=== PATIENT | male | born 1940 | race African-American/Black ===

== ENCOUNTER 2016-12-31 13:37 | Emergency (ER) | payer MEDICARE, OTHER ==
[~2016-12-31] VITALS: Ht 165.1 cm; Wt 65.3 kg
[~2016-12-31 13:37] MED LIST: AMBIEN10 MG PO; ASPIR 8181 MG PO; ATENOLOL50 MG ORAL; AZOPT10 ML BOTH EYES; BYSTOLIC10 MG PO; CENTRUM MULTIV1 EACH PO; COMBIGAN EYE DRO5 ML BOTH EYES; FLOMAX0.4 MG PO; GABAPENTIN300 MG PO; HUMALOG MI100 UNIT/5 SQ; LOVAZA1 GM PO; NITROGLYCERIN0.4 MG SL; NOVOLOG100 UNIT/3 SUBQ; TRIBENZOR 40-11 EAC1 ORAL; TRIBENZOR 40-11 EAC1 PO; UNKNOWN BP MED PO; VITAMIN D1000 UNI1 PO
[2016-12-31 13:40] VITALS: BP 155/70
--- NOTE | 2016-12-31 14:22 | Emergency Room Report ---
History of Present Illness General Chief Complaint: Eye Problems Source: Patient, EMS Present Illness HPI Patient is a 76-year-old male who presented after increased difficulty with vision from his left eye. Patient reports having increased blurring of his vision to his left eye primarily. Patient had the onset of symptoms approximately one month ago. Patient noted some worsening of his vision today. Patient said he previously had cataract surgery. He had been using store- bought corrective lenses. He denies recent fever or trauma. Allergies: Coded Allergies: ATORVASTATIN CALCIUM (Unverified Adverse Reaction, Unknown, NAUSEA, 02/22/13 ) NAUSEA Patient History Past Medical History: see triage record Reviewed Nursing Documentation: PMH: Agreed, PSxH: Agreed Nursing Documentation-PMH Past Medical History: No History, Except For Hx Cardiac Problems: No Hx Hypertension: Yes Hx Diabetes: Yes Hx Cancer: No Hx Gastrointestinal Problems: No Hx Neurological Problems: Yes Hx Dizziness: Yes Hx Syncope: Yes Hx Headaches: Yes Hx Weakness: Yes Hx Fatigue: Yes Review of Systems All Other Systems: negative except mentioned in HPI Physical Exam Vital Signs Date Time Temp Pulse Resp B/P Pulse Ox O2 Delivery O2 Flow Rate FiO2 12/31/16 13:24 97.9 100 18 166/68 98 Room Air Sp02 EP Interpretation: reviewed, normal General Appearance: normal inspection, well appearing, no apparent distress, alert, GCS 15 Head: atraumatic Eyes: bilateral eye other - post surgical pupils, left pupil non reactive ENT: normal ENT inspection, hearing grossly normal, normal voice Neck: normal inspection, full range of motion, supple, no bony tend Respiratory: normal inspection, lungs clear, normal breath sounds, no respiratory distress, no retraction, no wheezing Cardiovascular #1: regular rate, rhythm, no edema Gastrointestinal: normal inspection, normal bowel sounds, non tender, soft, no guarding, no hernia Genitourinary: no CVA tenderness Musculoskeletal: normal inspection, back normal, normal range of motion Neurologic: normal inspection, alert, responsive, speech normal Psychiatric: normal inspection, judgement/insight normal, mood/affect normal Skin: normal inspection, normal color, no rash Medical Decision Making Diagnostic Impression: Primary Impression: Vitreous hemorrhage of left eye Additional Impression: Glaucoma ER Course The patient presented for decreased vision. Differential diagnoses included was not limited to central retinal artery occlusion, dislocation lens, glaucoma , iritis, central vein occlusion, vitreous hemorrhage among others. Because of complexity of patient's case and concern for acute vision loss ophthalmology consult was obtained. Dr. Pandey saw patient emergency department. The patient was noted to have glaucoma which the patient has prior history. The patient was given followup instructions. Patient was advised to return if he began having other concerns or symptoms. Last Vital Signs Date Time Temp Pulse Resp B/P Pulse Ox O2 Delivery O2 Flow Rate FiO2 12/31/16 13:24 97.9 100 18 166/68 98 Room Air Status: improved Disposition: HOME, SELF-CARE Condition: Stable Emeterio Smith Dec 31, 2016 14:22
[2016-12-31] MEDS ORDERED: Tropicamide 1% Opth Soln LEFT EYE ONE (16:00)
[2016-12-31 19:18] VITALS: BP 153/73
--- NOTE | 2017-01-01 05:20 | Consultation ---
DATE OF CONSULTATION: 12/31/2016 CONSULTING PHYSICIAN: Kingston Julien M.D. REQUESTING PHYSICIAN: Emeterio Smith M.D. REASON FOR CONSULT: Vision loss. HISTORY OF PRESENT ILLNESS: The patient is a 76-year-old male with a past medical history including diabetes and glaucoma, complaining of decrease in vision over the last month, acutely worsening over the last several days. He notes worse vision in his left eye than the right eye. He reports a past ocular history of bilateral cataract surgery, and glaucoma surgery in the left eye. He was previously on eye drops to treat his glaucoma, however, he states that he stopped them approximately one month ago because they burned. He denies any recent trauma or eye pain. Past Medical History: No History, Except For Hx Cardiac Problems: No Hx Hypertension: Yes Hx Diabetes: Yes Hx Cancer: No Hx Gastrointestinal Problems: No Hx Neurological Problems: Yes Hx Dizziness: Yes Hx Syncope: Yes Hx Headaches: Yes Hx Weakness: Yes Hx Fatigue: Yes REVIEW OF SYSTEMS: Negative other than reported in the HPI. Allergies: Coded Allergies: ATORVASTATIN CALCIUM (Unverified Adverse Reaction, Unknown, NAUSEA, 02/22/13 ) NAUSEA Vital Signs Date Time Temp Pulse Resp B/P Pulse Ox O2 Delivery O2 Flow Rate FiO2 12/31/16 13:24 97.9 100 18 166/68 98 Room Air OPHTHALMIC EXAMINATION: Visual acuity OD 20/200 OS, light perception. Intraocular pressure by Adiel-Pen 25 mmHg OU. Extraocular motility equal bilaterally. Confrontation visual field is constricted OD, unable OS. Pupils are sluggishly reactive OU. Slit lamp examination Conjunctiva: quiet OU Cornea: clear OU Anterior chamber: deep/quiet OU, glaucoma drainage device superiorly OS Iris: post surgical OU Lens: PCIOL OU Dilated fundus exam OD: clear vitreous, advanced cupping with ONH pallor, flat macula, normal vessels and peripheral retinal scarring. OS: vitreous hemorrhage, advanced cupping with ONH pallor, flat macula, peripheral retinal scarring, view obscured by vit heme. Assessment/Plan 1. Glaucoma OU - Restart glaucoma medication today, patient says he has drops at home but has not been using them for at least 1 month. - f/u with account review specialist MAY, patient says he has a account review specialist, must call to schedule appt tomorrow 2. Proliferative diabetic retinopathy, OS - tight BP/BS control, goal HgbA1c <7.0 - elevate head of bed to promote inferior layering of vitreous hemorrhage - f/u with recruiting team lead this week for further evaluation and management 3. Pseudophakia, OU Kingston Julien M.D. DR: PHYLLIS JOB#: [id number] CC: ALLI
== END 2016-12-31 20:39 | disposition home or self-care (01) ==
LOC: EDBD 13:37 → EMR 14:51
DX: H43.12 Vitreous hemorrhage, left eye (principal); H40.9 Unspecified glaucoma; I10 Essential (primary) hypertension; E11.9 Type 2 diabetes mellitus without complications
CPT/HCPCS: 99282

== ENCOUNTER 2017-04-09 14:22 | Inpatient (IN) | payer MEDICARE, OTHER ==
[~2017-04-09] VITALS: Ht 167.6 cm; Wt 72.6 kg
[2017-04-09] VITALS (7 sets, daily range): BP systolic 137–184; BP diastolic 53–103
[2017-04-09] MEDS ORDERED: Lidocaine 1% 10mg/ml/Epi 0.005mg/ml 30ml vial INJ ONE (14:30)
[2017-04-09] MEDS ORDERED: Bacitracin Oint UD TOPIC ONE (14:30)
[2017-04-09] MEDS ORDERED: TdaP Vaccine 0.5ml Syr IM ONE (14:30)
--- NOTE | 2017-04-09 14:59 | Diagnostic Imaging Report ---
Indications: Fall, head trauma, pain Technique: Continuous helical CT imaging of the brain was performed with nonionic exposure control on a Siemens sensation [address] scanner. Axial and coronal images were reconstructed at 5 mm slice thickness and interval. CTDI volume(s): 70 mGy Total DLP: 1449 mGy-cm Findings: Comparison: None Confluent low attenuation is present in the bilateral periventricular deep cerebral white matter. Wedge-shaped, peripherally based low attenuation/parenchymal loss posterior lateral aspect right parietal lobe. Small circumscribed foci of low attenuation/parenchymal loss bilateral cerebellar hemispheres. Ventricles, cisterns, and sulci are diffusely prominent. No evidence of mass or hemorrhage, mass effect, midline shift, hydrocephalus, or increased intracranial pressure. Bone window images are unremarkable. Visualized paranasal sinuses and mastoid air cells are clear. IMPRESSION: No evidence of acute injury or other acute intracranial pathology Bilateral cerebral periventricular and deepwhite matter low attenuation, nonspecific, likely chronic microvascular ischemic in nature. 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 Atrophy The CT scanner at [facility] is accredited by the [employer] and the scans are performed using protocols designed to limit radiation exposure to as low as reasonably achievable to attain images of sufficient resolution adequate for diagnostic evaluation.
[2017-04-09 15:35] LABS: INR 1.1 (0.9-1.1); PROTHROMBIN TIME 11.1 SEC (9.30-11.50)
[2017-04-09 15:40] LABS: MEAN CORPUSCULAR HEMOGLOBIN 31.9 PG (27.0-31.0); MEAN CORPUSCULAR HGB CONC 33.4 G/DL (32.0-36.0); MEAN CORPUSCULAR VOLUME 95 FL (80-99); MEAN PLATELET VOLUME 6.8 FL (6.5-10.1); PLATELET COUNT 176 K/UL (150-450); RED BLOOD COUNT 4.25 M/UL (4.70-6.10); RED CELL DISTRIBUTION WIDTH 12.3 % (11.6-14.8); WHITE BLOOD COUNT 6.3 K/UL (4.8-10.8)
[2017-04-09 15:41] LABS: TROPONIN I < 0.30 ng/mL (<=0.30)
[2017-04-09 15:47] LABS: ALANINE AMINOTRANSFERASE 11 U/L (3-41); ALBUMIN/GLOBULIN RATIO 1.7 (1.0-2.7); ANION GAP 14 (5-15); ASPARTATE AMINO TRANSFERASE 14 U/L (5-40); CALCIUM 9.5 mg/dL (8.6-10.2); CARBON DIOXIDE 27 mEQ/L (20-30); CHLORIDE 97 mEQ/L (98-107); CREATININE 1.5 mg/dL (0.7-1.2); HEMOLYSIS 3; POTASSIUM 5.5 mEQ/L (3.4-4.9); SODIUM 138 mEQ/L (135-145); TOTAL PROTEIN 6.9 g/dL (6.6-8.7)
--- NOTE | 2017-04-09 15:55 | Emergency Room Report ---
History of Present Illness General Chief Complaint: Head, Face, Neck Trauma Source: Patient Present Illness HPI Patient is brought in after head injury. According to EMS he was alert had a ground-level fall. The patient denies falling and does not remember hitting his head. He was waiting for the bus. He has pain in the back of his head that sharp about a 4/10 constant. There was some bleeding at the scene. Paramedics felt that this was related to a new walker that he has. The patient does have an in-home caregiver. He was on his way by himself to get something to eat. He states that for the last 2 days he's felt weak when he is standing up. The patient has hypertension, diabetes. Has glaucoma and retinopathy. On insulin and uses gabapentin. Eating well. Sugars not uncontrolled, on insulin. No fevers, NVD, dysuria, extremity or neck pain. He denies any renal problems. 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 Reviewed Nursing Documentation: PMH: Agreed, PSxH: Agreed Nursing Documentation-PMH Hx Cardiac Problems: No Hx Hypertension: Yes Hx Pacemaker: No Hx COPD: No Hx Diabetes: No Hx Cancer: No Hx Gastrointestinal Problems: No - glaucoma Hx Dialysis: No History Of Psychiatric Problem: No Hx Neurological Problems: No Hx Cerebrovascular Accident: No Hx Seizures: No Hx Dizziness: Yes Hx Syncope: Yes Hx Headaches: Yes Hx Weakness: Yes Hx Fatigue: Yes Review of Systems All Other Systems: negative except mentioned in HPI Physical Exam Vital Signs Date Time Temp Pulse Resp B/P Pulse Ox O2 Delivery O2 Flow Rate FiO2 04/09/17 14:21 97.9 78 16 140/90 99 Room Air Sp02 EP Interpretation: reviewed, normal General Appearance: no apparent distress, alert, GCS 15, non-toxic, other - not orthostatic, Chronically Ill Head: normocephalic Eyes: bilateral eye normal inspection ENT: moist mucus membranes Neck: supple Respiratory: lungs clear, normal breath sounds Cardiovascular #1: regular rate, rhythm Cardiovascular #2: 2+ radial (R) Gastrointestinal: normal inspection, normal bowel sounds, non tender, no mass, non-distended, scaphoid Musculoskeletal: back normal, normal range of motion, no calf tenderness, other - atrophy Neurologic: alert, oriented x3 - not remember fall, motor strength/tone normal , DTRs symmetric, sensory intact - reported decrease extrem, other - slight unsteady posture Psychiatric: mood/affect normal Reflexes: 2+ knee (R), 2+ knee (L) Skin: warm/dry, laceration - occiput = 5 cm Procedures Laceration/Wound Repair Laceration/Wound Repair : Consent: Verbal Wound Location: head Wound's Depth, Shape: into muscle, linear, contused tissue Wound Length (cm): 5 Wound Explored: clean Betadine Prep?: Yes Anesthesia: Lidocaine w/ Epi Wound Debrided: minimal Wound Repaired With: mary Patient Tolerated: Well Complications: None Progress Wound irrigated by pharmacy picking technician after lido. Medical Decision Making Diagnostic Impression: Primary Impression: Syncope Qualified Codes: R55 - Syncope and collapse Additional Impressions: Head injury Qualified Codes: S09.90XA - Unspecified injury of head, initial encounter Renal insufficiency Hyperkalemia Diabetes Post strokes Scalp laceration Qualified Codes: S01.01XA - Laceration without foreign body of scalp, initial encounter ER Course Patient post fall (he doesn't remember) with head injury. DDx: bleed, contusion , syncope, AMI, arrhythmia, orthostatic syncope, dehydration amongst others. Emergent evaluation with CT, EKG, CXR, labs. Will need tetanus and wound care. Not orthostatic. EKG (no peaked T waves), CT (prior strokes), CXR unremarkable. Labs with hyperkalemia and renal insufficiency. Glucose elevated. Scalp lac repaired. Hyperkalemia treated. Gentle hydration. Improved with treatment. Admit tele Dr. Rosenbaum. Laboratory Tests Test 04/09/17 15:00 White Blood Count 6.3 K/UL (4.8-10.8) Red Blood Count 4.25 M/UL (4.70-6.10) L Hemoglobin 13.5 G/DL (14.2-18.0) L Hematocrit 40.5 % (42.0-52.0) L Mean Corpuscular Volume 95 FL (80-99) Mean Corpuscular Hemoglobin 31.9 PG (27.0-31.0) H Mean Corpuscular Hemoglobin Concent 33.4 G/DL (32.0-36.0) Red Cell Distribution Width 12.3 % (11.6-14.8) Platelet Count 176 K/UL (150-450) Mean Platelet Volume 6.8 FL (6.5-10.1) Neutrophils (%) (Auto) % (45.0-75.0) Lymphocytes (%) (Auto) % (20.0-45.0) Monocytes (%) (Auto) % (1.0-10.0) Eosinophils (%) (Auto) % (0.0-3.0) Basophils (%) (Auto) % (0.0-2.0) Differential Total Cells Counted 100 Neutrophils % (Manual) 85 % (45-75) H Lymphocytes % (Manual) 9 % (20-45) L Monocytes % (Manual) 3 % (1-10) Eosinophils % (Manual) 0 % (0-3) Basophils % (Manual) 0 % (0-2) Band Neutrophils 3 % (0-8) Platelet Estimate Adequate Platelet Morphology Normal Anisocytosis 1+ Prothrombin Time 11.1 SEC (9.30-11.50) Prothrombin Time INR 1.1 (0.9-1.1) PTT 24 SEC (23-33) Sodium Level 138 mEQ/L (135-145) Potassium Level 5.5 mEQ/L (3.4-4.9) H Chloride Level 97 mEQ/L (98-107) L Carbon Dioxide Level 27 mEQ/L (20-30) Anion Gap 14 (5-15) Blood Urea Nitrogen 21 mg/dL (7-23) Creatinine 1.5 mg/dL (0.7-1.2) H Estimate Glomerular Filtration Rate mL/min (>60) Glucose Level 361 mg/dL (74-106) H Calcium Level 9.5 mg/dL (8.6-10.2) Total Bilirubin 0.7 mg/dL (0.0-1.2) Aspartate Amino Transferase (AST) 14 U/L (5-40) Alanine Aminotransferase (ALT) 11 U/L (3-41) Alkaline Phosphatase 105 U/L (40-129) Total Creatine Kinase 31 U/L (38-174) L Troponin I < 0.30 ng/mL (<=0.30) Pro-B-Type Natriuretic Peptide 706 pg/mL (0-125) H Total Protein 6.9 g/dL (6.6-8.7) Albumin 4.4 g/dL (3.5-5.2) Globulin 2.5 g/dL Albumin/Globulin Ratio 1.7 (1.0-2.7) EKG Diagnostic Results Rate: normal Rhythm: NSR ST Segments: no acute changes Rhythm Strip Diag. Results EP Interpretation: yes Rhythm: NSR, no PVC's, no ectopy Chest X-Ray Diagnostic Results EP Interpretation: Yes Findings: no consolidation, no effusion, no pneumothorax, no acute cardiopulmonary disease Number of Views: 1 CT/MRI/US Diagnostic Results CT/MRI/US Diagnostic Results : Imaging Test Ordered: head Impression No evidence of acute injury or other acute intracranial pathology. Bilateral cerebral preventricular and deep white matter low attenuation which is nonspecific likely chronic microvascular ischemic in nature. 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 Atrophy. Last Vital Signs Date Time Temp Pulse Resp B/P Pulse Ox O2 Delivery O2 Flow Rate FiO2 04/09/17 22:59 184/103 04/09/17 22:32 97.5 71 20 96 Room Air Status: improved Disposition: ADMITTED INPATIENT Condition: Serious Carlton Renner M.D. April 09, 2017 15:55
[2017-04-09] MEDS ORDERED: Calcium Gluconate 1gm/10ml vial IVP ONE (16:00)
[2017-04-09] MEDS ORDERED: Sodium Polystyrene Sulfonate 15gm Powder ORAL ONE (16:00)
--- NOTE | 2017-04-09 16:35 | Diagnostic Imaging Report ---
Indication: Shortness of breath Technique: Single portable AP view of the chest. Findings: Comparison: 12/14/12 The bones and extra pulmonary soft tissues, cardiomediastinal silhouette, pulmonary vasculature and parenchyma, and pleural surfaces remain unremarkable. IMPRESSION: Negative portable AP chest, unchanged.
[2017-04-09 17:00] LABS: ANISOCYTOSIS 1+; BAND NEUTROPHILS % (MANUAL) 3 % (0-8); BASOPHILS % (MANUAL) 0 % (0-2); EOSINOPHILS % (MANUAL) 0 % (0-3); LYMPHOCYTES % (MANUAL) 9 % (20-45); NEUTROPHILS % (MANUAL) 85 % (45-75); PLATELET ESTIMATE ADEQUATE; PLATELET MORPHOLOGY NORMAL; TOTAL CELLS COUNTED 100
[2017-04-09 19:43] LABS: APPEARANCE,URINE CLEAR; KETONES,URINE 1+ (NEGATIVE); LEUKOCYTE ESTERASE ,URINE NEGATIVE (NEGATIVE); NITRITE,URINE NEGATIVE (NEGATIVE); PH,URINE 6 (4.5-8.0); PROTEIN,URINE 1+ (NEGATIVE); UROBILINOGEN,URINE NORMAL MG/DL (0.0-1.0)
[2017-04-09] MEDS ORDERED: METFORMIN HCL500 M4 ORAL (19:49)
[2017-04-09 19:58] LABS: BACTERIA,URINE FEW /HPF; RBC,URINE 0-2 /HPF (0 - 0); WBC,URINE 0-2 /HPF (0 - 0)
[2017-04-09] MEDS ORDERED: DuoNeb 0.5-3(2.5)mg/3ml neb HHN PRN (21:45)
[2017-04-09] MEDS ORDERED: Morphine Sulfate 2mg/ml Inj IVP PRN (21:45)
[2017-04-09] MEDS ORDERED: Mylanta II UD 30ml ORAL PRN (21:45)
[2017-04-09] MEDS ORDERED: Miralax 17gm pkt ORAL PRN (21:45)
[2017-04-09] MEDS ORDERED: Nitroglycerin Subl 0.4mg tab (Bottle Of 25) SL PRN (21:45)
[2017-04-09] MEDS ORDERED: LORazepam Inj 2mg/ml 1ml IV PRN (21:45)
[2017-04-09] MEDS ORDERED: Enalaprilat 2.5mg/2ml Inj IV PRN (21:45)
[2017-04-10 04:25] VITALS: BP 113/54
[2017-04-10] MEDS: NovoLOG Insulin Flexpen SUBQ SCH ×4 (06:51→20:42)
--- NOTE | 2017-04-10 07:23 | Cardiology Progress Note ---
Assessment/Plan Assessment/Plan fall syncope left carotid bruit exertional dyspnea and ? cp htn dm polypharmacy glaucoma needing surgery ? lv dysfunction serial enzyme ekg carotid duplex \orthostatic vitals dc atenolol whiel on bystolic adjust med telel observation gerardo need ischemia eval [id number] Objective Last 24 Hour Vital Signs Date Time Temp Pulse Resp B/P Pulse Ox O2 Delivery O2 Flow Rate FiO2 04/10/17 04:25 97.7 69 20 113/54 100 Room Air 04/10/17 04:15 69 74 70 04/10/17 04:00 73 04/10/17 00:00 82 04/09/17 22:59 184/103 04/09/17 22:32 97.5 71 20 184/103 96 Room Air 04/09/17 22:00 98.2 65 12 148/67 100 Room Air 04/09/17 21:13 98.2 65 12 148/67 100 Room Air 04/09/17 18:26 98.2 68 18 162/80 100 Room Air 04/09/17 17:30 98.3 106 14 152/97 98 Room Air 04/09/17 15:36 88 20 Room Air 04/09/17 15:26 98.2 96 18 147/67 100 Room Air 04/09/17 15:24 98.2 90 18 181/71 100 Room Air 04/09/17 15:22 98.2 85 18 137/53 100 Room Air 04/09/17 14:21 97.9 78 16 140/90 99 Room Air Intake and Output 04/09/17 04/10/17 19:00 07:00 Intake Total 0 ml Balance 0 ml Intake Oral 0 ml # Voids 1 Laboratory Tests Test 04/09/17 15:00 04/09/17 19:28 04/10/17 06:00 White Blood Count 6.3 K/UL (4.8-10.8) Pending Red Blood Count 4.25 M/UL (4.70-6.10) L Pending Hemoglobin 13.5 G/DL (14.2-18.0) L Pending Hematocrit 40.5 % (42.0-52.0) L Pending Mean Corpuscular Volume 95 FL (80-99) Pending Mean Corpuscular Hemoglobin 31.9 PG (27.0-31.0) H Pending Mean Corpuscular Hemoglobin Concent 33.4 G/DL (32.0-36.0) Pending Red Cell Distribution Width 12.3 % (11.6-14.8) Pending Platelet Count 176 K/UL (150-450) Pending Mean Platelet Volume 6.8 FL (6.5-10.1) Pending Neutrophils (%) (Auto) % (45.0-75.0) Pending Lymphocytes (%) (Auto) % (20.0-45.0) Pending Monocytes (%) (Auto) % (1.0-10.0) Pending Eosinophils (%) (Auto) % (0.0-3.0) Pending Basophils (%) (Auto) % (0.0-2.0) Pending Differential Total Cells Counted 100 Neutrophils % (Manual) 85 % (45-75) H Lymphocytes % (Manual) 9 % (20-45) L Monocytes % (Manual) 3 % (1-10) Eosinophils % (Manual) 0 % (0-3) Basophils % (Manual) 0 % (0-2) Band Neutrophils 3 % (0-8) Platelet Estimate Adequate Platelet Morphology Normal Anisocytosis 1+ Prothrombin Time 11.1 SEC (9.30-11.50) Pending Prothromb Time International Ratio 1.1 (0.9-1.1) Pending Activated Partial Thromboplast Time 24 SEC (23-33) Pending Sodium Level 138 mEQ/L (135-145) Pending Potassium Level 5.5 mEQ/L (3.4-4.9) H Pending Chloride Level 97 mEQ/L (98-107) L Pending Carbon Dioxide Level 27 mEQ/L (20-30) Pending Anion Gap 14 (5-15) Blood Urea Nitrogen 21 mg/dL (7-23) Pending Creatinine 1.5 mg/dL (0.7-1.2) H Pending Estimat Glomerular Filtration Rate mL/min (>60) Pending Glucose Level 361 mg/dL (74-106) H Pending Calcium Level 9.5 mg/dL (8.6-10.2) Pending Total Bilirubin 0.7 mg/dL (0.0-1.2) Pending Aspartate Amino Transf (AST/SGOT) 14 U/L (5-40) Pending Alanine Aminotransferase (ALT/SGPT) 11 U/L (3-41) Pending Alkaline Phosphatase 105 U/L (40-129) Pending Total Creatine Kinase 31 U/L (38-174) L Troponin I < 0.30 ng/mL (<=0.30) Pro-B-Type Natriuretic Peptide 706 pg/mL (0-125) H Total Protein 6.9 g/dL (6.6-8.7) Pending Albumin 4.4 g/dL (3.5-5.2) Pending Globulin 2.5 g/dL Pending Albumin/Globulin Ratio 1.7 (1.0-2.7) Urine Color Pale yellow Urine Appearance Clear Urine pH 6 (4.5-8.0) Urine Specific [place] 1.010 (1.005-1.035) Urine Protein 1+ (NEGATIVE) H Urine Glucose (UA) 4+ (NEGATIVE) H Urine Ketones 1+ (NEGATIVE) H Urine Occult Blood Negative (NEGATIVE) Urine Nitrite Negative (NEGATIVE) Urine Bilirubin Negative (NEGATIVE) Urine Urobilinogen Normal MG/DL (0.0-1.0) Urine Leukocyte Esterase Negative (NEGATIVE) Urine RBC 0-2 /HPF (0 - 0) H Urine WBC 0-2 /HPF (0 - 0) Urine Squamous Epithelial Cells None /LPF (NONE/OCC) Urine Bacteria Few /HPF (NONE) Triglycerides Level Pending Cholesterol Level Pending LDL Cholesterol Pending HDL Cholesterol Pending Cholesterol/HDL Ratio Pending Thyroid Stimulating Hormone (TSH) Pending DOMINGO YUSUF April 10, 2017 07:23
[2017-04-10 07:25] LABS: INR 1.1 (0.9-1.1); PROTHROMBIN TIME 11.4 SEC (9.30-11.50)
[2017-04-10 07:26] LABS: BASOPHILS % (AUTO) 0.8 % (0.0-2.0); EOSINOPHILS % (AUTO) 1.4 % (0.0-3.0); LYMPHOCYTES % (AUTO) 23.1 % (20.0-45.0); MEAN CORPUSCULAR HEMOGLOBIN 32.4 PG (27.0-31.0); MEAN CORPUSCULAR HGB CONC 34.1 G/DL (32.0-36.0); MEAN CORPUSCULAR VOLUME 95 FL (80-99); MEAN PLATELET VOLUME 7.7 FL (6.5-10.1); MONOCYTES % (AUTO) 6.9 % (1.0-10.0); NEUTROPHILS % (AUTO) 67.8 % (45.0-75.0); PLATELET COUNT 157 K/UL (150-450); RED BLOOD COUNT 3.72 M/UL (4.70-6.10); RED CELL DISTRIBUTION WIDTH 12.5 % (11.6-14.8); WHITE BLOOD COUNT 6.1 K/UL (4.8-10.8)
[2017-04-10 07:39] LABS: ALANINE AMINOTRANSFERASE 8 U/L (3-41); ALBUMIN/GLOBULIN RATIO 1.4 (1.0-2.7); ANION GAP 14 (5-15); ASPARTATE AMINO TRANSFERASE 10 U/L (5-40); CALCIUM 9.1 mg/dL (8.6-10.2); CARBON DIOXIDE 28 mEQ/L (20-30); CHLORIDE 99 mEQ/L (98-107); CHOLESTEROL 169 mg/dL (< 200); CHOLESTEROL/HDL RATIO 3.8 (3.3-4.4); CREATININE 1.2 mg/dL (0.7-1.2); HEMOLYSIS 11; LDL CHOLESTEROL (CALC.) 99 mg/dL (60-99); POTASSIUM 4.2 mEQ/L (3.4-4.9); SODIUM 141 mEQ/L (135-145); TOTAL PROTEIN 6.3 g/dL (6.6-8.7)
[2017-04-10 08:25] VITALS: BP 133/64
[2017-04-10] MEDS: Aspirin EC 81mg tab ORAL SCH (08:56)
[2017-04-10] MEDS: Tamsulosin 0.4mg cap ORAL SCH (08:56)
[2017-04-10] MEDS: Heparin 5000 units/ml inj SUBQ SCH ×2 (09:00→20:32)
[2017-04-10 11:42] VITALS: BP 153/74
--- NOTE | 2017-04-10 13:40 | Consultation ---
History of Present Illness General Date patient seen: April 10, 2017 Chief Complaint: Head, Face, Neck Trauma Referring physician: Dr. Guerra Reason for Consultation: inpatient management Present Illness HPI 76 year old male with hx of hypertension, diabetes, glaucoma and retinopathy, on insulin .is brought in after head injury. According to EMS he was alert had a ground-level fall. While he was waiting for the bus. He has pain in the back of his head . He stated that he in the last 2 days felt weak when he is standing up. Pt is admitted to telemetry for furhter work up. Allergies: Coded Allergies: ATORVASTATIN CALCIUM (Unverified Adverse Reaction, Unknown, NAUSEA, 02/22/13 ) NAUSEA Medication History Scheduled Aspirin* (Aspir 81*), 81 MG PO DAILY, (Reported) Atenolol* (Tenormin*), 50 MG ORAL DAILY, (Reported) Brimonidine Tartrate/Timolol (Combigan Eye Drops), 5 BOTH EYES BID, (Reported) Brinzolamide (Azopt), BOTH EYES TID, (Reported) Cholecalciferol (Vitamin D3)* (Vitamin D*), 5,000 UNITS PO DAILY, (Reported) Folic Acid/Mv,Fe,Other Min (Centrum Multivitamin Tab Chew), 1 EACH PO DAILY, ( Reported) Gabapentin* (Gabapentin*), 300 MG PO TID, (Reported) Insulin Aspart* (Novolog*), 0 SUBQ .SLIDING SCALE, (Reported) Metformin Hcl (Metformin Hcl Er), Unknown Dose ORAL DAILY, (Reported) Nebivolol Hcl (Bystolic*), 20 MG PO DAILY, (Reported) Olmesartan Med/Amlodipine/Hctz 40-10-25MG (Tribenzor 40-10-25 Mg Tablet), 1 EACH PO DAILY, (Reported) Olmesartan Med/Amlodipine/Hctz 40-10-25MG (Tribenzor 40-10-25 Mg Tablet), 1 TAB ORAL DAILY, (Reported) [place]-3 Acid Ethyl Esters (Lovaza), 1 GM PO BID, (Reported) [place]-3 Acid Ethyl Esters (Lovaza), 1 GM PO BID, (Reported) Tamsulosin HCl (Flomax), 0.4 MG PO DAILY, (Reported) Zolpidem Tartrate* (Ambien*), 10 MG PO HS, (Reported) Scheduled PRN Nitroglycerin (Nitroglycerin), 0.4 MG SL, (Reported) Miscellaneous Medications Insulin Npl/Insulin Lispro (Humalog Mix 75-25 Pen), 0 SQ, (Reported) Patient History Healthcare decision maker N Resuscitation status Full Code Advanced Directive on File Past Medical/Surgical History Past Medical/Surgical History: (1) HTN (hypertension) (2) Glaucoma (3) Diabetes Review of Systems All Other Systems: negative except mentioned in HPI Physical Exam General Appearance: WD/WN Lines, tubes and drains: peripheral HEENT: normocephalic, atraumatic Neck: non-tender, normal alignment Respiratory/Chest: chest wall non-tender, lungs clear Cardiovascular/Chest: normal peripheral pulses, normal rate Abdomen: normal bowel sounds, non tender Genitourinary/Rectal: normal genital exam Extremities: normal range of motion Skin Exam: normal pigmentation 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: 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 II-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 grossly normal Last 24 Hour Vital Signs Date Time Temp Pulse Resp B/P Pulse Ox O2 Delivery O2 Flow Rate FiO2 04/10/17 11:42 97.0 61 20 153/74 100 Room Air 04/10/17 08:56 79 128/78 04/10/17 08:35 79 04/10/17 08:30 85 04/10/17 08:25 71 04/10/17 08:25 97.0 71 20 133/64 95 Room Air 04/10/17 08:00 77 04/10/17 07:30 78 20 Room Air 21 04/10/17 04:25 97.7 69 20 113/54 100 Room Air 04/10/17 04:15 69 74 70 04/10/17 04:00 73 04/10/17 00:00 82 04/09/17 22:59 184/103 04/09/17 22:32 97.5 71 20 184/103 96 Room Air 04/09/17 22:00 98.2 65 12 148/67 100 Room Air 04/09/17 21:13 98.2 65 12 148/67 100 Room Air 04/09/17 18:26 98.2 68 18 162/80 100 Room Air 04/09/17 17:30 98.3 106 14 152/97 98 Room Air 04/09/17 15:36 88 20 Room Air 04/09/17 15:26 98.2 96 18 147/67 100 Room Air 04/09/17 15:24 98.2 90 18 181/71 100 Room Air 04/09/17 15:22 98.2 85 18 137/53 100 Room Air 04/09/17 14:21 97.9 78 16 140/90 99 Room Air Intake and Output 04/09/17 04/10/17 19:00 07:00 Intake Total 0 ml Balance 0 ml Intake Oral 0 ml # Voids 1 Laboratory Tests Test 04/09/17 15:00 04/09/17 19:28 04/10/17 06:00 White Blood Count 6.3 K/UL (4.8-10.8) 6.1 K/UL (4.8-10.8) Red Blood Count 4.25 M/UL (4.70-6.10) L 3.72 M/UL (4.70-6.10) L Hemoglobin 13.5 G/DL (14.2-18.0) L 12.0 G/DL (14.2-18.0) L Hematocrit 40.5 % (42.0-52.0) L 35.3 % (42.0-52.0) L Mean Corpuscular Volume 95 FL (80-99) 95 FL (80-99) Mean Corpuscular Hemoglobin 31.9 PG (27.0-31.0) H 32.4 PG (27.0-31.0) H Mean Corpuscular Hemoglobin Concent 33.4 G/DL (32.0-36.0) 34.1 G/DL (32.0-36.0) Red Cell Distribution Width 12.3 % (11.6-14.8) 12.5 % (11.6-14.8) Platelet Count 176 K/UL (150-450) 157 K/UL (150-450) Mean Platelet Volume 6.8 FL (6.5-10.1) 7.7 FL (6.5-10.1) Neutrophils (%) (Auto) % (45.0-75.0) 67.8 % (45.0-75.0) Lymphocytes (%) (Auto) % (20.0-45.0) 23.1 % (20.0-45.0) Monocytes (%) (Auto) % (1.0-10.0) 6.9 % (1.0-10.0) Eosinophils (%) (Auto) % (0.0-3.0) 1.4 % (0.0-3.0) Basophils (%) (Auto) % (0.0-2.0) 0.8 % (0.0-2.0) Differential Total Cells Counted 100 Neutrophils % (Manual) 85 % (45-75) H Lymphocytes % (Manual) 9 % (20-45) L Monocytes % (Manual) 3 % (1-10) Eosinophils % (Manual) 0 % (0-3) Basophils % (Manual) 0 % (0-2) Band Neutrophils 3 % (0-8) Platelet Estimate Adequate Platelet Morphology Normal Anisocytosis 1+ Prothrombin Time 11.1 SEC (9.30-11.50) 11.4 SEC (9.30-11.50) Prothromb Time International Ratio 1.1 (0.9-1.1) 1.1 (0.9-1.1) Activated Partial Thromboplast Time 24 SEC (23-33) 25 SEC (23-33) Sodium Level 138 mEQ/L (135-145) 141 mEQ/L (135-145) Potassium Level 5.5 mEQ/L (3.4-4.9) H 4.2 mEQ/L (3.4-4.9) Chloride Level 97 mEQ/L (98-107) L 99 mEQ/L (98-107) Carbon Dioxide Level 27 mEQ/L (20-30) 28 mEQ/L (20-30) Anion Gap 14 (5-15) 14 (5-15) Blood Urea Nitrogen 21 mg/dL (7-23) 21 mg/dL (7-23) Creatinine 1.5 mg/dL (0.7-1.2) H 1.2 mg/dL (0.7-1.2) Estimat Glomerular Filtration Rate mL/min (>60) mL/min (>60) Glucose Level 361 mg/dL (74-106) H 199 mg/dL (74-106) #H Calcium Level 9.5 mg/dL (8.6-10.2) 9.1 mg/dL (8.6-10.2) Total Bilirubin 0.7 mg/dL (0.0-1.2) 0.5 mg/dL (0.0-1.2) Aspartate Amino Transf (AST/SGOT) 14 U/L (5-40) 10 U/L (5-40) Alanine Aminotransferase (ALT/SGPT) 11 U/L (3-41) 8 U/L (3-41) Alkaline Phosphatase 105 U/L (40-129) 80 U/L (40-129) Total Creatine Kinase 31 U/L (38-174) L Troponin I < 0.30 ng/mL (<=0.30) Pro-B-Type Natriuretic Peptide 706 pg/mL (0-125) H Total Protein 6.9 g/dL (6.6-8.7) 6.3 g/dL (6.6-8.7) L Albumin 4.4 g/dL (3.5-5.2) 3.7 g/dL (3.5-5.2) Globulin 2.5 g/dL 2.6 g/dL Albumin/Globulin Ratio 1.7 (1.0-2.7) 1.4 (1.0-2.7) Urine Color Pale yellow Urine Appearance Clear Urine pH 6 (4.5-8.0) Urine Specific [place] 1.010 (1.005-1.035) Urine Protein 1+ (NEGATIVE) H Urine Glucose (UA) 4+ (NEGATIVE) H Urine Ketones 1+ (NEGATIVE) H Urine Occult Blood Negative (NEGATIVE) Urine Nitrite Negative (NEGATIVE) Urine Bilirubin Negative (NEGATIVE) Urine Urobilinogen Normal MG/DL (0.0-1.0) Urine Leukocyte Esterase Negative (NEGATIVE) Urine RBC 0-2 /HPF (0 - 0) H Urine WBC 0-2 /HPF (0 - 0) Urine Squamous Epithelial Cells None /LPF (NONE/OCC) Urine Bacteria Few /HPF (NONE) Triglycerides Level 126 mg/dL (< 150) Cholesterol Level 169 mg/dL (< 200) LDL Cholesterol 99 mg/dL (60-99) HDL Cholesterol 45 mg/dL (> 60) Cholesterol/HDL Ratio 3.8 (3.3-4.4) Thyroid Stimulating Hormone (TSH) 1.310 uIU/mL (0.300-4.500) Height (Feet): 5 Height (Inches): 6.00 Weight (Pounds): 160 Medications Current Medications Medications (Trade) Dose Ordered Sig/Meera Route PRN Reason Start Time Stop Time Status Last Admin Dose Admin Acetaminophen (Tylenol) 650 mg Q4H PRN ORAL T>100.5 04/09/17 21:45 05/09/17 21:44 Al Hydroxide/Mg Hydroxide (Mylanta II) 30 ml Q6H PRN ORAL dyspepsia 04/09/17 21:45 05/09/17 21:44 Albuterol/ Ipratropium (DuoNeb 0.5-3(2.5)mg/3ml) 3 ml Q4H PRN HHN Shortness of Breath 04/09/17 21:45 04/14/17 21:44 Amlodipine Besylate (Norvasc) 5 mg Q12HR ORAL 04/10/17 09:00 05/10/17 08:59 04/10/17 08:56 Aspirin (Ecotrin) 81 mg DAILY ORAL 04/10/17 09:00 05/10/17 08:59 04/10/17 08:56 Dextrose (Dextrose 50%) STAT PRN IV Hypoglycemia 04/09/17 21:45 05/09/17 21:44 Enalaprilat (Vasotec) 2.5 mg Q4H PRN IV sbp more than 200 04/09/17 21:45 05/09/17 21:44 Gabapentin (Neurontin) 300 mg Q8HR ORAL 04/09/17 22:00 05/09/17 21:59 04/10/17 13:14 Heparin Sodium (Porcine) (Heparin 5000 units/ml) 5,000 units EVERY 12 HOURS SUBQ 04/10/17 09:00 05/10/17 08:59 04/10/17 09:00 Hydralazine HCl (Apresoline) 20 mg Q4H PRN IV sbp more than 160 04/09/17 21:45 05/09/17 21:44 04/09/17 22:59 Insulin Aspart (NovoLOG) BEFORE MEALS AND HS SUBQ 04/10/17 06:30 05/10/17 06:29 04/10/17 12:22 Lorazepam (Ativan 2mg/ml 1ml) 0.5 mg Q4H PRN IV For Anxiety 04/09/17 21:45 04/16/17 21:44 Morphine Sulfate (Morphine Sulfate) 1 mg Q4H PRN IVP Severe Pain (Pain Scale 7-10) 04/09/17 21:45 04/16/17 21:44 Nebivolol (Bystolic) 20 mg DAILY ORAL 04/10/17 09:00 05/10/17 08:59 04/10/17 08:56 Nitroglycerin (Ntg) 0.4 mg Q5M X 3 DOSES PRN SL Prn Chest Pain 04/09/17 21:45 05/09/17 21:44 Ondansetron HCl (Zofran) 4 mg Q6H PRN IVP Nausea & Vomiting 04/09/17 21:45 05/09/17 21:44 Polyethylene Glycol (Miralax) 17 gm HSPRN PRN ORAL Constipation 04/09/17 21:45 05/09/17 21:44 Tamsulosin HCl (Flomax) 0.4 mg DAILY ORAL 04/10/17 09:00 05/10/17 08:59 04/10/17 08:56 Temazepam (Restoril) 15 mg HSPRN PRN ORAL Insomnia 04/09/17 21:45 04/16/17 21:44 04/09/17 23:05 Assessment/Plan Problem List: (1) Hyperkalemia ICD Codes: E87.5 - Hyperkalemia SNOMED: 52991915 (2) Syncope ICD Codes: R55 - Syncope and collapse SNOMED: 613646463 Qualifiers: Qualified Codes: R55 - Syncope and collapse (3) Diabetes ICD Codes: E11.9 - Type 2 diabetes mellitus without complications SNOMED: 64228720 Qualifiers: (4) HTN (hypertension) ICD Codes: I10 - Essential (primary) hypertension SNOMED: 65676463 Assessment/Plan IV fluids check electrolytes echo cardiac evaluation sliding scale pt/ot TRINY VALVERDE April 10, 2017 13:40
[2017-04-10 15:30] VITALS: BP 119/57
--- NOTE | 2017-04-10 16:17 | Consultation ---
DATE OF CONSULTATION: 04/10/2017 CARDIOLOGY CONSULTATION CONSULTING PHYSICIAN: Krish Landaverde M.D. REFERRING PHYSICIAN: Warren Rosenbaum M.D. REASON FOR REFERRAL: Syncope. HISTORY OF PRESENT ILLNESS: This is an elderly gentleman, who tells me that he was trying to get passed out and then found herself on the floor. Apparently, he does not remember the actual event, but he was noted to have some bleeding. Paramedics felt that he had fallen because of his new walker, although the patient does not remember how he actually fell and he has not had any prior syncope although he tells me he was previously hospitalized at another hospital, but told part of his heart was not working. The patient does not have any PND or orthopnea, uses more contour pillow. Denies getting dizzy or lightheaded when he sits up or stands up, however, he does have exertional related shortness of breath on occasion when he picks up his microwave to put it somewhere else, he gets some chest pain as well. He tells me he has had a car that he does not have any more with him that describes medical condition, but he actually denies ever having any congestive heart failure, atrial fibrillation, coronary artery disease, no myocardial infarction, no stents or angiograms or angioplasties or pacemakers on detailed questions. PAST MEDICAL HISTORY: Positive for high blood pressure and diabetes. Unknown history of heart attack. He has had three prior strokes. No history of hepatitis or tuberculosis. No asthma or emphysema. No liver problems. He apparently does have some kidney problems. No thyroid problems. He does have arthritis. He has had problems with his prostate. He does not have any HIV or AIDS. ALLERGIES: He is not allergic to any medications. SOCIAL HISTORY: He does not smoke or drink alcoholic beverages. Does not use any drugs. He is from [place]. REVIEW OF SYSTEMS: Gastrointestinal: Denies any nausea or vomiting. No bloody or black stools. Genitourinary: Denies. Pulmonary: Denies. Constitutional: Denies. PHYSICAL EXAMINATION: GENERAL: Shows to be elderly gentleman, in no apparent respiratory distress, trying to sit up and eat breakfast. VITAL SIGNS: His blood pressure has been documented anywhere between 113/54, to 284/103. His vital signs, pulse rate between 69 to 74, and he has been afebrile since being admitted here. NECK: Supple. No jugular venous distention. He does have bruits on the left side. LUNGS: Otherwise, clear to auscultation and percussion. CARDIAC: S1 is normal. S2 is normal. Regular rate and rhythm. Really faint holosystolic regurgitant murmur. There is no RV lift, heaves or thrills or gallops noted. ABDOMEN: Soft and nontender. Positive bowel sounds. EXTREMITIES: There is no clubbing, cyanosis, or edema. NEUROLOGIC: He is awake, alert, responsive, and in no apparent respiratory distress. LABORATORY AND DIAGNOSTIC DATA: He got a white count is 6.3, hemoglobin 13.5 and a platelet count of 176,000. Sodium is 138, potassium 5.5, chloride 97, bicarbonate 27, BUN 21, creatinine 1.5 and a glucose of 361. Liver function tests are normal. Troponin the first set is normal. ProBNP is 706 and total protein is 6.9 with albumin a of 4.4. His coags INR 1.1, and PTT 24. His urinalysis shows 1+ protein, 1+ glucose, 1+ ketones, 0-2 WBCs and RBCs. His EKG shows normal sinus rhythm, leftward axis, delayed R-wave progression, and some nonspecific T-wave abnormalities changes consistent with left anterior fascicular block. His telemetry data overnight shows basically sinus rhythm, and no other significant abnormalities. REFERRING PHYSICIAN: 1. Fall/syncope. 2. Carotid bruit on the left side. 3. History of exertional shortness of breath. 4. Questionable left ventricular systolic dysfunction history. 5. Glaucoma. 6. Diabetes mellitus with poor control. 7. History of hypertension. PLAN: Dr. Rosenbaum, this patient was seen in cardiac consultation. The patient's blood pressure being quite high yesterday and it works against the possibility of orthostatic hypotension. Apparently, the ER physician also felt that there was an issue either he is on medications to control his blood pressure unfortunately the 2 beta-blockers are listed on his medication includes atenolol and Bystolic. He is on Tribenzor as well as Flomax. I think his beta-cara should be changed. His atenolol should probably discontinued. Other medications should be continued. He had a carotid duplex that needs control of his blood sugar as well as his blood pressure medication to be adjusted for adequate control, telemetry observation and echocardiogram as well. Further recommendation depending on the results of the above. Krish Landaverde M.D. DR: Gideon JOB#: [id number] CC:
--- NOTE | 2017-04-10 17:38 | History & Physical ---
History and Physical History & Physicial Job: [id number] Warren Rosenbaum MD April 10, 2017 17:38
--- NOTE | 2017-04-10 18:28 | Diagnostic Imaging Report ---
APPROVED REPORT CPT Code: 94489 Vascular Symptoms CVA/TIA: Doppler Spectral Velocity Analysis RightLeft arteries. The Doppler spectral flow analysis indicates the degree of stenosis is minimal (10%) in the common carotid artery, moderate (50-60%) in the internal carotid artery, and minimal (20%) in the external carotid artery. VERTEBRAL- The vertebral artery was not well visualized. arteries. The Doppler spectral flow analysis indicates the degree of stenosis is minimal (10%) in the common carotid artery, moderate (50-60%) in the internal carotid artery, and minimal (20%) in the external carotid artery. VERTEBRAL- The vertebral artery is patent, without evidence of stenosis or steal.
--- NOTE | 2017-04-10 19:00 | Cardiology Report ---
APPROVED REPORT EKG Measurement Heart [id number] ME [id number] Normal sinus rhythm Left ventricular hypertrophy with repolarization abnormality Abnormal ECG
--- NOTE | 2017-04-10 19:20 | Cardiology Report ---
APPROVED REPORT EXAM: Two-dimensional and M-mode echocardiogram with Doppler and color Doppler. INDICATION Left ventricular function M-Mode DIMENSIONS IVSd1.4 (0.7-1.1cm)Left Atrium (MM)4.2 (1.6-4.0cm) LVDd4.7 (3.5-5.6cm)Aortic Cusp Exc.1.9 (1.5-2.0cm) IVSs2.0 cm LVDs3.0 (2.5-4.0cm) PWs1.1 cm Technically difficult study due to poor acoustic windows. Normal left ventricular chamber size, systolic function and wall motion. Left ventricular ejection fraction estimated to be 55-60%. Mild left ventricular hypertrophy. No evidence of pericardial fat or effusion. All other cardiac chamber sizes are within normal limits. Focal aortic valve sclerosis with adequate cusp excursion Thickened mitral valve leaflets with normal excursion. Mitral annulus and aortic root calcification. Pulmonic valve not well visualized. Normal tricuspid valve structure. IVC is normal in size with physiologic collapse. A color flow and spectral Doppler study was performed and revealed: No aortic regurgitation. No mitral regurgitation. Left ventricular diastolic dysfunction. grade 1. No tricuspid regurgitation.
[2017-04-10 20:20] VITALS: BP 120/57
--- NOTE | 2017-04-10 20:39 | General Progress Note ---
Progress Note Progress Note [id number] full consult dictated CHEO COVARRUBIAS April 10, 2017 20:39
[2017-04-11 00:27] VITALS: BP 117/55
--- NOTE | 2017-04-11 01:46 | History and Physical Report ---
DATE OF ADMISSION: 04/09/2017 CHIEF COMPLAINT: Syncope and blackout. HISTORY OF PRESENT ILLNESS: This is a 76-year-old very delightful gentleman with past medical history significant for bilateral glaucoma with a history of legally blind, diabetic type 2, hypertension, dyslipidemia, and history of stroke x3, who has presented to emergency room complaining about "passing out" and was found himself on the floor. Apparently, he does not remember what actually happened. He had some bleeding. Paramedics felt that the patient fell with his new walker, although was not witnessed. The patient said that he has been falling and passing out for the past month and shortly after initial evaluation in the emergency, the patient was admitted to the hospital with recurrent fall with syncope and sustained blunt head injury. PAST MEDICAL HISTORY/PAST SURGICAL HISTORY: As above. History of hypertension, diabetes type 2, history of CVA x3, severe glaucoma with a legally blind, history of dyslipidemia, and coronary artery disease with a prior history of myocardial infarction. No history of hepatitis or tuberculosis. No history of asthma. No renal insufficiency. The patient does have a history of renal insufficiency as well as arthritis. MEDICATIONS: Medications at home is significant for aspirin, atenolol, Combigan eyedrops, Azopt eye drops, vitamin D, folic acid, gabapentin, insulin aspart, lispro, Humalog Mix 75/25 insulin, metformin, Bystolic, and nitroglycerin. The patient on a Tribenzor, Lovaza, Flomax, and Ambien. ALLERGIES: Atorvastatin and . SOCIAL HISTORY: The patient denies any smoking, alcohol, or substance abuse. He rents an apartment. He a room in the house. FAMILY HISTORY: Noncontributory. REVIEW OF SYSTEMS: Mostly as above. Denies any dysuria or frequency. Complained about recurrent falls, syncope, and blackout. Denies any hemoptysis or hematochezia. Complained about the head injury. Positive loss of consciousness. Denies any suicidal or homicidal ideation. PHYSICAL EXAMINATION: VITAL SIGNS: On admission is significant for temperature of 97.9 degrees, pulse of 78, respirations 16, and blood pressure 140/90. GENERAL: The patient is awake, responsive, and in no acute distress. HEAD AND NECK: Pupils are equal and reactive to light. Extraocular movements are intact. NECK: Supple. No JVD. LUNGS: Good air entry. No wheezing or rales. HEART: S1 and S2. Distant heart sounds. No gallops. ABDOMEN: Soft, flat and nontender. Positive bowel sounds. EXTREMITIES: No cyanosis, clubbing, or edema. NEUROLOGIC: Cranial nerves II through XII are grossly. The patient is moving all extremities. SKIN: The patient has a laceration in the occipital area, 5 cm was noted. PSYCHIATRIC: Mood and affect is intact. LABORATORY DATA: On admission, significant for WBC of 6.3, hemoglobin of 13, hematocrit of 40, and platelets is 176,000. Sodium 138, potassium 5.5, chloride 97, bicarbonate 27, BUN 21, creatinine 1.5, and glucose 361. Alkaline phosphatase is 105. ProBNP of 706 and troponin less than 0.30. PT of 11, INR 1.1, and PTT of 24. Urinalysis, +1 protein, +4 glucose, +1 ketone, and 5 to 2 RBC. EKG, normal sinus rhythm with a rate of 86 with left anterior fascicular block and left ventricular hypertrophy. No ST elevation was identified. MS interval is 142 and QT is 362. Echocardiogram preliminary results showed technical difficulty, poor acquisition window, left ventricular ejection fraction of 55% to 60%, mild left ventricular hypertrophy, and mild left ventricular diastolic dysfunction grade 1. ASSESSMENT: 1. Recurrent fall with syncope. 2. Exertional shortness of breath. 3. Left ventricular systolic dysfunction. 4. Glaucoma with a history of legally blind. 5. Diabetic type 2, poorly controlled. 6. Hypertension. 7. Dyslipidemia. 8. Prior history of stroke. 9. Polypharmacy. PLAN: At this time, we checked orthostatics on the patient. The patient has seen by Dr. Krish Landaverde from Cardiology and Dr. Arce from Pulmonary Critical Care. We will monitor laboratory and Accu-Chek with sliding scale. Resume home medications. Monitor blood pressure very closely. Consider SNF placement upon discharge. PT and OT evaluation and we will follow up with the official report of 2D echo. The patient was noted on both atenolol as well as Bystolic. We consider to hold off on one of them and the patient is also on Tribenzor as well as Flomax. We will try to monitor limited medication polypharmacy. Warren Rosenbaum M.D. DR: RONNELL JOB#: [id number] CC:
[2017-04-11 04:13] VITALS: BP 119/62
[2017-04-11] MEDS: NovoLOG Insulin Flexpen SUBQ SCH ×4 (06:42→21:34)
--- NOTE | 2017-04-11 07:45 | Consultation ---
DATE OF CONSULTATION: 04/10/2017 NEPHROLOGY CONSULTATION: REFERRING PHYSICIAN: Warren Rosenbaum M.D. REASON FOR CONSULTATION: Renal failure and hyperkalemia. HISTORY OF PRESENT ILLNESS: The patient is a very pleasant male with past medical history significant for history of hypertension, diabetes, of prior strokes x3, and history of , who was presented to [facility] complaining of syncopal episode. Apparently, the patient was walking at home. He did not have any presyncopal episode, but he was found to be on the floor. Paramedics were called and the patient was brought in to [facility]. In the ER, the patient found to have an acute renal failure and hyperkalemia. He was subsequently admitted in the hospital. I was called for management of renal disease and electrolyte imbalance. PAST MEDICAL HISTORY: Including 1. Diabetes . 2. Hypertension. 3. History of heart disease. 4. History of CVA. 5. History of dyslipidemia. ALLERGIES: No known drug allergies. SOCIAL HISTORY: He denies any history of tobacco, alcohol, or recreational drug use. FAMILY HISTORY: Negative for any history of premature heart disease. REVIEW OF SYSTEMS: General: He denies any weight loss, weight gain, fever, chills, or night sweats. Head And Neck: Denies any dysphagia, odynophagia, blurry vision, headache, or neck stiffness. Pulmonary: No current shortness of breath, cough or sputum. Cardiovascular: Denies any chest pain or palpitation, but he had an episode of syncopal episode. Gastrointestinal: Denies any nausea, vomiting, diarrhea, hematemesis, or hematochezia. Genitourinary: Denies any dysuria, frequency, or hematuria. Musculoskeletal: He denies any localized weakness or numbness except he had in the past. PHYSICAL EXAMINATION: GENERAL: The patient is alert and in no acute distress. No nausea. No vomiting. No fever no acute distress. VITAL SIGNS: Blood pressure of /74, pulse rate 61, respiratory rate of 18, temperature of 97 degrees. HEAD AND NECK: No JVP. No LAD. No thyromegaly. carotid bruit. LUNGS: Clear to auscultation. CARDIAC: Regular rate and rhythm. S1-S2. No murmur. No rub. ABDOMEN: Soft, nontender, and nondistended. EXTREMITIES: Trace edema. No clubbing. No cyanosis. LABORATORY VALUES: Laboratory value revealed sodium 138, potassium 3.9, 103 chloride, 22 bicarb, BUN of 29, creatinine of 1.8, and glucose of 280. Calcium of 9.2. AST of 15, ALT 16, and alkaline phosphorus of 122. Total protein of 7.5. Albumin of 4.5. UA revealed specific gravity of 1010, pH of 6, glucose 4+, protein 1+, ketones 1+, WBC 0 to 2, and RBCs 0 to 2. CBC revealed WBC count of 6.1, hemoglobin 12, hematocrit 35, and platelet count of 157,000. ASSESSMENT: 1. Acute renal failure including acute tubular necrosis due to . 2. Chronic kidney disease due to diabetic nephropathy. The patient has 1+ proteinuria. 3. Hypertensive nephrosclerosis. 4. Hyperkalemia. 5. Rule out obstructive uropathy the patient's age of 76 a possibility. 6. Uncontrolled diabetes. PLAN: Plan for the patient to obtain a UA. Check the random urine protein creatinine ratio to calculate the proteinuria. Check the urine sodium and creatinine to calculate fractional excretion of sodium. I would recommend better diabetic control for this patient. I would replace the electrolytes as needed. I would monitor renal function and electrolytes closely. Again I would like to thank, Dr. Rosenbaum for allowing me to participate in the care of this patient. Kinza Harris M.D. DR: Anahi JOB#: [id number] CC:
[2017-04-11 08:00] VITALS: BP 123/56
[2017-04-11] MEDS: Tamsulosin 0.4mg cap ORAL SCH (08:52)
[2017-04-11] MEDS: Aspirin EC 81mg tab ORAL SCH (08:52)
[2017-04-11] MEDS: Heparin 5000 units/ml inj SUBQ SCH ×2 (08:55→21:33)
--- NOTE | 2017-04-11 10:20 | Pulmonology Progress Note ---
Assessment/Plan Problems: (1) Hyperkalemia (2) Syncope (3) Diabetes (4) HTN (hypertension) Assessment/Plan K better sliding scale asymptomatic might go home if ok with cardio carotid artery 50% stenosis might need vascular evaluation as outpatient Subjective ROS Limited/Unobtainable: No Constitutional: Reports: no symptoms HEENT: Repors: no symptoms Respiratory: Reports: no symptoms Cardiovascular: Reports: no symptoms Allergies: Coded Allergies: ATORVASTATIN CALCIUM (Unverified Adverse Reaction, Unknown, NAUSEA, 02/22/13 ) NAUSEA Objective Last 24 Hour Vital Signs Date Time Temp Pulse Resp B/P Pulse Ox O2 Delivery O2 Flow Rate FiO2 04/11/17 08:54 59 123/56 04/11/17 08:00 97.3 59 18 123/56 100 Room Air 04/11/17 04:13 98.1 66 20 119/62 98 Room Air 04/11/17 03:44 51 04/11/17 00:27 98.3 63 19 117/55 100 Room Air 04/10/17 23:41 74 04/10/17 20:28 68 120/57 04/10/17 20:23 68 64 79 04/10/17 20:20 98.6 68 20 120/57 96 Room Air 04/10/17 19:20 84 04/10/17 16:00 65 04/10/17 15:30 97.2 67 20 119/57 100 Room Air 04/10/17 12:00 55 04/10/17 11:42 97.0 61 20 153/74 100 Room Air Intake and Output 04/10/17 04/11/17 19:00 07:00 Intake Total 360 ml Output Total 450 ml 300 ml Balance -90 ml -300 ml Intake Oral 360 ml Output Urine Total 450 ml 300 ml # Voids 1 General Appearance: WD/WN HEENT: normocephalic, atraumatic Respiratory/Chest: chest wall non-tender, lungs clear Cardiovascular: normal peripheral pulses, normal rate Abdomen: normal bowel sounds, soft, non tender Microbiology Date/Time Source Procedure Growth Status 04/09/17 21:15 Rectum VRE Culture - Final NO VANCOMYCIN RESISTANT ENTEROCOCCUS ... Complete Current Medications Medications (Trade) Dose Ordered Sig/Meera Route PRN Reason Start Time Stop Time Status Last Admin Dose Admin Acetaminophen (Tylenol) 650 mg Q4H PRN ORAL T>100.5 04/09/17 21:45 05/09/17 21:44 Al Hydroxide/Mg Hydroxide (Mylanta II) 30 ml Q6H PRN ORAL dyspepsia 04/09/17 21:45 05/09/17 21:44 Albuterol/ Ipratropium (DuoNeb 0.5-3(2.5)mg/3ml) 3 ml Q4H PRN HHN Shortness of Breath 04/09/17 21:45 04/14/17 21:44 Amlodipine Besylate (Norvasc) 5 mg Q12HR ORAL 04/10/17 09:00 05/10/17 08:59 04/11/17 08:54 Aspirin (Ecotrin) 81 mg DAILY ORAL 04/10/17 09:00 05/10/17 08:59 04/11/17 08:52 Dextrose (Dextrose 50%) STAT PRN IV Hypoglycemia 04/09/17 21:45 05/09/17 21:44 Enalaprilat (Vasotec) 2.5 mg Q4H PRN IV sbp more than 200 04/09/17 21:45 05/09/17 21:44 Gabapentin (Neurontin) 300 mg Q8HR ORAL 04/09/17 22:00 05/09/17 21:59 04/11/17 06:39 Heparin Sodium (Porcine) (Heparin 5000 units/ml) 5,000 units EVERY 12 HOURS SUBQ 04/10/17 09:00 05/10/17 08:59 04/11/17 08:55 Hydralazine HCl (Apresoline) 20 mg Q4H PRN IV sbp more than 160 04/09/17 21:45 05/09/17 21:44 04/09/17 22:59 Insulin Aspart (NovoLOG) BEFORE MEALS AND HS SUBQ 04/10/17 06:30 05/10/17 06:29 04/11/17 06:42 Lorazepam (Ativan 2mg/ml 1ml) 0.5 mg Q4H PRN IV For Anxiety 04/09/17 21:45 04/16/17 21:44 Morphine Sulfate (Morphine Sulfate) 1 mg Q4H PRN IVP Severe Pain (Pain Scale 7-10) 04/09/17 21:45 04/16/17 21:44 Nebivolol (Bystolic) 20 mg DAILY ORAL 04/10/17 09:00 05/10/17 08:59 04/10/17 08:56 Nitroglycerin (Ntg) 0.4 mg Q5M X 3 DOSES PRN SL Prn Chest Pain 04/09/17 21:45 05/09/17 21:44 Ondansetron HCl (Zofran) 4 mg Q6H PRN IVP Nausea & Vomiting 04/09/17 21:45 05/09/17 21:44 Polyethylene Glycol (Miralax) 17 gm HSPRN PRN ORAL Constipation 04/09/17 21:45 05/09/17 21:44 Tamsulosin HCl (Flomax) 0.4 mg DAILY ORAL 04/10/17 09:00 05/10/17 08:59 04/11/17 08:52 Temazepam (Restoril) 15 mg HSPRN PRN ORAL Insomnia 04/09/17 21:45 04/16/17 21:44 04/09/17 23:05 TRINY VALVERDE April 11, 2017 10:20
[2017-04-11 11:26] LABS: ANION GAP 13 (5-15); CALCIUM 8.5 mg/dL (8.6-10.2); CARBON DIOXIDE 27 mEQ/L (20-30); CHLORIDE 97 mEQ/L (98-107); CREATININE 1.4 mg/dL (0.7-1.2); HEMOLYSIS 6; POTASSIUM 3.8 mEQ/L (3.4-4.9); SODIUM 137 mEQ/L (135-145)
[2017-04-11 11:29] LABS: TROPONIN I < 0.30 ng/mL (<=0.30)
[2017-04-11 12:00] VITALS: BP 151/67
[2017-04-11 12:58] LABS: CREATININE, RANDOM URINE 90.2 mg/dL
--- NOTE | 2017-04-11 13:41 | Nephrology Progress Note ---
Assessment/Plan Assessment 41.hyperkalemia 2.ARF 2.CKD 3.HTN 4.Syncopal episode Plan 1.to continue low 2.continue current meds 3.avoid NSAID 4.MAY need to stop enalapril Subjective Constitutional: Reports: no symptoms HEENT: Reports: no symptoms Genitourinary: Reports: no symptoms Neurologic/Psychiatric: Reports: no symptoms Subjective awake no events Objective Objective Last 24 Hour Vital Signs Date Time Temp Pulse Resp B/P Pulse Ox O2 Delivery O2 Flow Rate FiO2 04/11/17 12:00 54 04/11/17 12:00 97.4 60 18 151/67 100 Room Air 04/11/17 08:54 59 123/56 04/11/17 08:00 97.3 59 18 123/56 100 Room Air 04/11/17 08:00 62 04/11/17 04:13 98.1 66 20 119/62 98 Room Air 04/11/17 03:44 51 04/11/17 00:27 98.3 63 19 117/55 100 Room Air 04/10/17 23:41 74 04/10/17 20:28 68 120/57 04/10/17 20:23 68 64 79 04/10/17 20:20 98.6 68 20 120/57 96 Room Air 04/10/17 19:20 84 04/10/17 16:00 65 04/10/17 15:30 97.2 67 20 119/57 100 Room Air Intake and Output 04/10/17 04/11/17 19:00 07:00 Intake Total 360 ml Output Total 450 ml 300 ml Balance -90 ml -300 ml Intake Oral 360 ml Output Urine Total 450 ml 300 ml # Voids 1 Laboratory Tests 04/11/17 10:40: Sodium Level 137, Potassium Level 3.8, Chloride Level 97L, Carbon Dioxide Level 27, Anion Gap 13, Blood Urea Nitrogen 25H, Creatinine 1.4H, Estimat Glomerular Filtration Rate , Glucose Level 241H, Calcium Level 8.5L, Troponin I < 0.30, Pro -B-Type Natriuretic Peptide 481H 04/11/17 12:25: Urine Random Creatinine [Pending], Urine Random Microalbumin [Pending], Urine Random Total Protein 10, Urine Random Sodium 43, Urine Creatinine 90.2, Urine Microalbumin/Creatinine Ratio [Pending] Height (Feet): 5 Height (Inches): 6.00 Weight (Pounds): 160 Objective HEAD AND NECK: No JVP. No LAD. No thyromegaly. bruit. LUNGS: Clear to auscultation. CARDIAC: Regular rate and rhythm. S1-S2. No murmur. No rub. ABDOMEN: Soft, nontender, and nondistended. EXTREMITIES: Trace edema. No clubbing. No cyanosis. CHEO COVARRUBIAS April 11, 2017 13:41
--- NOTE | 2017-04-11 14:51 | Cardiology Progress Note ---
Assessment/Plan Problem List: (1) HTN (hypertension) (2) Diabetes (3) Syncope Status: stable, progressing Status Narrative Mr. Sadler is stable from a cardiac standpoint. Has ruled out for OH w/ neg troponins. LV function normal and no significant valve disease. He is not orthostatic. Assessment/Plan Continue current medications for HTN, DM Physical therapy - assess gait. Consider outpt event monitor Can be dc d from cardiac standpoint. Subjective ROS Limited/Unobtainable: No Subjective Mr. Sadler has no c/o chest pain, dyspnea or dizziness, Objective Last 24 Hour Vital Signs Date Time Temp Pulse Resp B/P Pulse Ox O2 Delivery O2 Flow Rate FiO2 04/11/17 12:00 54 04/11/17 12:00 97.4 60 18 151/67 100 Room Air 04/11/17 08:54 59 123/56 04/11/17 08:00 97.3 59 18 123/56 100 Room Air 04/11/17 08:00 62 04/11/17 04:13 98.1 66 20 119/62 98 Room Air 04/11/17 03:44 51 04/11/17 00:27 98.3 63 19 117/55 100 Room Air 04/10/17 23:41 74 04/10/17 20:28 68 120/57 04/10/17 20:23 68 64 79 04/10/17 20:20 98.6 68 20 120/57 96 Room Air 04/10/17 19:20 84 04/10/17 16:00 65 04/10/17 15:30 97.2 67 20 119/57 100 Room Air General Appearance: WD/WN, no apparent distress, alert EENT: PERRL/EOMI Neck: non-tender, supple, no JVD Rhythm: NSR Cardiovascular: normal rate, regular rhythm, no gallop/murmur Respiratory/Chest: lungs clear Abdomen: non tender, soft, no mass Extremities: non-tender, no swelling Intake and Output 04/10/17 04/11/17 19:00 07:00 Intake Total 360 ml Output Total 450 ml 300 ml Balance -90 ml -300 ml Intake Oral 360 ml Output Urine Total 450 ml 300 ml # Voids 1 Laboratory Tests Test 04/11/17 10:40 04/11/17 12:25 Sodium Level 137 mEQ/L (135-145) Potassium Level 3.8 mEQ/L (3.4-4.9) Chloride Level 97 mEQ/L (98-107) L Carbon Dioxide Level 27 mEQ/L (20-30) Anion Gap 13 (5-15) Blood Urea Nitrogen 25 mg/dL (7-23) H Creatinine 1.4 mg/dL (0.7-1.2) H Estimat Glomerular Filtration Rate mL/min (>60) Glucose Level 241 mg/dL (74-106) H Calcium Level 8.5 mg/dL (8.6-10.2) L Troponin I < 0.30 ng/mL (<=0.30) Pro-B-Type Natriuretic Peptide 481 pg/mL (0-125) H Urine Random Creatinine Pending Urine Random Microalbumin Pending Urine Random Total Protein 10 mg/dL Urine Random Sodium 43 mmol/L Urine Creatinine 90.2 mg/dL Urine Microalbumin/Creatinine Ratio Pending Microbiology Date/Time Source Procedure Growth Status 04/09/17 21:15 Nasal Nares MRSA Culture - Final NO METHICILLIN RESISTANT STAPH AUREUS... Complete 04/09/17 21:15 Rectum VRE Culture - Final NO VANCOMYCIN RESISTANT ENTEROCOCCUS ... Complete JOSELINE JACOBO April 11, 2017 14:51
[2017-04-11 16:00] VITALS: BP 136/47
--- NOTE | 2017-04-11 16:22 | Internal Med Progress Note ---
Subjective Date of Service: April 11, 2017 Physician Name Marquez,Chaparrita Attending Physician Warren Rosenbaum MD Current Medications Medications (Trade) Dose Ordered Sig/Meera Route PRN Reason Start Time Stop Time Status Last Admin Dose Admin Acetaminophen (Tylenol) 650 mg Q4H PRN ORAL T>100.5 04/09/17 21:45 05/09/17 21:44 Al Hydroxide/Mg Hydroxide (Mylanta II) 30 ml Q6H PRN ORAL dyspepsia 04/09/17 21:45 05/09/17 21:44 Albuterol/ Ipratropium (DuoNeb 0.5-3(2.5)mg/3ml) 3 ml Q4H PRN HHN Shortness of Breath 04/09/17 21:45 04/14/17 21:44 Amlodipine Besylate (Norvasc) 5 mg Q12HR ORAL 04/10/17 09:00 05/10/17 08:59 04/11/17 08:54 Aspirin (Ecotrin) 81 mg DAILY ORAL 04/10/17 09:00 05/10/17 08:59 04/11/17 08:52 Dextrose (Dextrose 50%) STAT PRN IV Hypoglycemia 04/09/17 21:45 05/09/17 21:44 Enalaprilat (Vasotec) 2.5 mg Q4H PRN IV sbp more than 200 04/09/17 21:45 05/09/17 21:44 Gabapentin (Neurontin) 300 mg Q8HR ORAL 04/09/17 22:00 05/09/17 21:59 04/11/17 13:07 Heparin Sodium (Porcine) (Heparin 5000 units/ml) 5,000 units EVERY 12 HOURS SUBQ 04/10/17 09:00 05/10/17 08:59 04/11/17 08:55 Hydralazine HCl (Apresoline) 20 mg Q4H PRN IV sbp more than 160 04/09/17 21:45 05/09/17 21:44 04/09/17 22:59 Insulin Aspart (NovoLOG) BEFORE MEALS AND HS SUBQ 04/10/17 06:30 05/10/17 06:29 04/11/17 11:57 Lorazepam (Ativan 2mg/ml 1ml) 0.5 mg Q4H PRN IV For Anxiety 04/09/17 21:45 04/16/17 21:44 Morphine Sulfate (Morphine Sulfate) 1 mg Q4H PRN IVP Severe Pain (Pain Scale 7-10) 04/09/17 21:45 04/16/17 21:44 Nebivolol (Bystolic) 20 mg DAILY ORAL 04/10/17 09:00 05/10/17 08:59 04/10/17 08:56 Nitroglycerin (Ntg) 0.4 mg Q5M X 3 DOSES PRN SL Prn Chest Pain 04/09/17 21:45 05/09/17 21:44 Ondansetron HCl (Zofran) 4 mg Q6H PRN IVP Nausea & Vomiting 04/09/17 21:45 05/09/17 21:44 Polyethylene Glycol (Miralax) 17 gm HSPRN PRN ORAL Constipation 04/09/17 21:45 05/09/17 21:44 Tamsulosin HCl (Flomax) 0.4 mg DAILY ORAL 04/10/17 09:00 05/10/17 08:59 04/11/17 08:52 Temazepam (Restoril) 15 mg HSPRN PRN ORAL Insomnia 04/09/17 21:45 04/16/17 21:44 04/09/17 23:05 Allergies: Coded Allergies: ATORVASTATIN CALCIUM (Unverified Adverse Reaction, Unknown, NAUSEA, 02/22/13 ) NAUSEA ROS Limited/Unobtainable: No Constitutional: Reports: no symptoms HEENT: Reports: no symptoms Cardiovascular: Reports: chest pain Respiratory: Reports: shortness of breath Gastrointestinal/Abdominal: Reports: no symptoms Genitourinary: Reports: no symptoms Neurologic/Psychiatric: Reports: no symptoms Subjective 76 YO M admitted with syncope. Cover for Int Olvin Rosenbaum. Objective Last Vital Signs Date Time Temp Pulse Resp B/P Pulse Ox O2 Delivery O2 Flow Rate FiO2 04/11/17 12:00 54 04/11/17 12:00 97.4 18 151/67 100 Room Air 04/10/17 07:30 21 Laboratory Tests Test 04/11/17 10:40 04/11/17 12:25 Sodium Level 137 mEQ/L (135-145) Potassium Level 3.8 mEQ/L (3.4-4.9) Chloride Level 97 mEQ/L (98-107) L Carbon Dioxide Level 27 mEQ/L (20-30) Anion Gap 13 (5-15) Blood Urea Nitrogen 25 mg/dL (7-23) H Creatinine 1.4 mg/dL (0.7-1.2) H Estimat Glomerular Filtration Rate mL/min (>60) Glucose Level 241 mg/dL (74-106) H Calcium Level 8.5 mg/dL (8.6-10.2) L Troponin I < 0.30 ng/mL (<=0.30) Pro-B-Type Natriuretic Peptide 481 pg/mL (0-125) H Urine Random Creatinine Pending Urine Random Microalbumin Pending Urine Random Total Protein 10 mg/dL Urine Random Sodium 43 mmol/L Urine Creatinine 90.2 mg/dL Urine Microalbumin/Creatinine Ratio Pending Microbiology Date/Time Source Procedure Growth Status 04/09/17 21:15 Nasal Nares MRSA Culture - Final NO METHICILLIN RESISTANT STAPH AUREUS... Complete 04/09/17 21:15 Rectum VRE Culture - Final NO VANCOMYCIN RESISTANT ENTEROCOCCUS ... Complete Intake and Output 04/10/17 04/11/17 19:00 07:00 Intake Total 360 ml Output Total 450 ml 300 ml Balance -90 ml -300 ml Intake Oral 360 ml Output Urine Total 450 ml 300 ml # Voids 1 Objective General: alert, cooperative, no distress, appears stated age Head: normocephalic, without obvious abnormality, atraumatic Eyes: Blind: conjunctivae/corneas clear. PERRL, EOM's intact Throat: lips, mucosa, and tongue normal. MMM Neck: supple, symmetrical, trachea midline, and no JVD Lungs: clear to auscultation bilaterally Heart: regular rate and rhythm, S1, S2 normal, no murmur, click, rub or gallop Abdomen: soft, non-tender, non-distended, bowel sounds normal; no masses or organomegaly Extremities: extremities normal, atraumatic, no cyanosis or edema Pulses: 2+ and symmetric Skin: skin color, texture, turgor normal; no rashes or lesions Neurologic: grossly normal, no focal deficits Assessment/Plan Problem List: (1) SOB (shortness of breath) on exertion (2) Renal failure Assessment & Plan: See nephrology note. (3) Diabetes mellitus, type II Assessment & Plan: Cont novolog sliding scale. 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
[2017-04-11 20:00] VITALS: BP 122/58
[2017-04-12] VITALS: BP_SYST 122; BP_SYST 129; BP_DIAS 58; BP_DIAS 62
[2017-04-12 04:19] VITALS: BP 127/65
[2017-04-12] MEDS: NovoLOG Insulin Flexpen SUBQ SCH ×6 (06:22→20:56)
[2017-04-12 08:00] VITALS: BP 120/53
[2017-04-12] MEDS: Tamsulosin 0.4mg cap ORAL SCH (08:29)
[2017-04-12] MEDS: Aspirin EC 81mg tab ORAL SCH (08:29)
[2017-04-12] MEDS: Heparin 5000 units/ml inj SUBQ SCH ×2 (08:32→20:56)
[2017-04-12 08:50] LABS: EOSINOPHILS % (AUTO) 1.5 % (0.0-3.0); LYMPHOCYTES % (AUTO) 28.7 % (20.0-45.0); MEAN CORPUSCULAR HEMOGLOBIN 32.7 PG (27.0-31.0); MEAN CORPUSCULAR HGB CONC 34.6 G/DL (32.0-36.0); MEAN CORPUSCULAR VOLUME 95 FL (80-99); MEAN PLATELET VOLUME 7.1 FL (6.5-10.1); MONOCYTES % (AUTO) 6.6 % (1.0-10.0); NEUTROPHILS % (AUTO) 62.1 % (45.0-75.0); PLATELET COUNT 137 K/UL (150-450); RED BLOOD COUNT 3.46 M/UL (4.70-6.10)
[2017-04-12 09:09] LABS: ANION GAP 14 (5-15); CALCIUM 8.5 mg/dL (8.6-10.2); CARBON DIOXIDE 26 mEQ/L (20-30); CHLORIDE 100 mEQ/L (98-107); CREATININE 1.3 mg/dL (0.7-1.2); HEMOLYSIS 6; SODIUM 140 mEQ/L (135-145)
[2017-04-12] MEDS ORDERED: Levemir Flexpen SUBQ SCH (11:00)
[2017-04-12] MEDS: metFORMIN 500mg tab ORAL SCH ×2 (11:34→16:30)
[2017-04-12 12:00] VITALS: BP_SYST 135; BP_SYST 160; BP_DIAS 62; BP_DIAS 69
--- NOTE | 2017-04-12 14:51 | Pulmonology Progress Note ---
Assessment/Plan Problems: (1) Hyperkalemia (2) Syncope (3) Diabetes (4) HTN (hypertension) Assessment/Plan K better sliding scale asymptomatic might go home if ok with cardio carotid artery 50% stenosis might need vascular evaluation as outpatient cardio cleared for dc will need pt/ot Subjective ROS Limited/Unobtainable: No Interval Events: comfortable, c/o his blindness Allergies: Coded Allergies: ATORVASTATIN CALCIUM (Unverified Adverse Reaction, Unknown, NAUSEA, 02/22/13 ) NAUSEA Objective Last 24 Hour Vital Signs Date Time Temp Pulse Resp B/P Pulse Ox O2 Delivery O2 Flow Rate FiO2 04/12/17 12:00 54 04/12/17 12:00 96.0 54 18 135/69 98 Room Air 04/12/17 08:29 63 120/53 04/12/17 08:00 55 51 70 04/12/17 08:00 97.4 63 18 120/53 100 Room Air 04/12/17 08:00 60 04/12/17 06:46 64 18 Room Air 04/12/17 04:30 59 59 65 04/12/17 04:19 97.7 59 20 127/65 100 Room Air 04/12/17 04:00 63 04/12/17 00:00 98.1 63 20 129/62 99 Room Air 04/12/17 00:00 98.1 63 20 129/62 99 Room Air 04/12/17 00:00 60 04/11/17 21:32 61 122/58 04/11/17 20:00 97.9 61 18 122/58 99 Room Air 04/11/17 20:00 63 04/11/17 19:16 63 18 Room Air 21 04/11/17 16:00 60 04/11/17 16:00 97.0 60 18 136/47 98 Room Air 04/11/17 16:00 60 64 68 Intake and Output 04/11/17 04/12/17 19:00 07:00 Output Total 625 ml Balance -625 ml Output Urine Total 625 ml # Voids 2 General Appearance: WD/WN HEENT: normocephalic, atraumatic Respiratory/Chest: chest wall non-tender, lungs clear Cardiovascular: normal peripheral pulses, normal rate Abdomen: normal bowel sounds, soft, non tender, no organomegaly Extremities: no cyanosis Neurologic/Psychiatric: elevator erector helper II-XII grossly normal Microbiology Date/Time Source Procedure Growth Status 04/09/17 21:15 Nasal Nares MRSA Culture - Final NO METHICILLIN RESISTANT STAPH AUREUS... Complete 04/09/17 21:15 Rectum VRE Culture - Final NO VANCOMYCIN RESISTANT ENTEROCOCCUS ... Complete Laboratory Tests 04/12/17 07:44: White Blood Count 5.0, Red Blood Count 3.46L, Hemoglobin 11.3L, Hematocrit 32.8L , Mean Corpuscular Volume 95, Mean Corpuscular Hemoglobin 32.7H, Mean Corpuscular Hemoglobin Concent 34.6, Red Cell Distribution Width 12.0, Platelet Count 137L, Mean Platelet Volume 7.1, Neutrophils (%) (Auto) 62.1, Lymphocytes ( %) (Auto) 28.7, Monocytes (%) (Auto) 6.6, Eosinophils (%) (Auto) 1.5, Basophils (%) (Auto) 1.0, Sodium Level 140, Potassium Level 4.0, Chloride Level 100, Carbon Dioxide Level 26, Anion Gap 14, Blood Urea Nitrogen 29H, Creatinine 1.3H , Estimat Glomerular Filtration Rate , Glucose Level 208H, Calcium Level 8.5L Current Medications Medications (Trade) Dose Ordered Sig/Meera Route PRN Reason Start Time Stop Time Status Last Admin Dose Admin Acetaminophen (Tylenol) 650 mg Q4H PRN ORAL T>100.5 04/09/17 21:45 05/09/17 21:44 Al Hydroxide/Mg Hydroxide (Mylanta II) 30 ml Q6H PRN ORAL dyspepsia 04/09/17 21:45 05/09/17 21:44 Albuterol/ Ipratropium (DuoNeb 0.5-3(2.5)mg/3ml) 3 ml Q4H PRN HHN Shortness of Breath 04/09/17 21:45 04/14/17 21:44 Amlodipine Besylate (Norvasc) 5 mg Q12HR ORAL 04/10/17 09:00 05/10/17 08:59 04/12/17 08:29 Aspirin (Ecotrin) 81 mg DAILY ORAL 04/10/17 09:00 05/10/17 08:59 04/12/17 08:29 Dextrose (Dextrose 50%) STAT PRN IV Hypoglycemia 04/09/17 21:45 05/09/17 21:44 Dextrose (Dextrose 50%) STAT PRN IV Hypoglycemia 04/12/17 10:15 05/12/17 10:14 Enalaprilat (Vasotec) 2.5 mg Q4H PRN IV sbp more than 200 04/09/17 21:45 05/09/17 21:44 Gabapentin (Neurontin) 300 mg Q8HR ORAL 04/09/17 22:00 05/09/17 21:59 04/12/17 13:50 Heparin Sodium (Porcine) (Heparin 5000 units/ml) 5,000 units EVERY 12 HOURS SUBQ 04/10/17 09:00 05/10/17 08:59 04/12/17 08:32 Hydralazine HCl (Apresoline) 20 mg Q4H PRN IV sbp more than 160 04/09/17 21:45 05/09/17 21:44 04/09/17 22:59 Insulin Aspart (NovoLOG) BEFORE MEALS AND HS SUBQ 04/10/17 06:30 05/10/17 06:29 04/12/17 11:36 Insulin Aspart (NovoLOG) 6 units NOVOTIAC SUBQ 04/12/17 11:50 05/12/17 11:49 04/12/17 11:36 Insulin Detemir (Levemir) 18 units DAILY SUBQ 04/12/17 11:00 05/12/17 10:59 04/12/17 11:35 Lorazepam (Ativan 2mg/ml 1ml) 0.5 mg Q4H PRN IV For Anxiety 04/09/17 21:45 04/16/17 21:44 Metformin HCl (Glucophage) 500 mg TIAC ORAL 04/12/17 11:30 05/12/17 11:29 04/12/17 11:34 Morphine Sulfate (Morphine Sulfate) 1 mg Q4H PRN IVP Severe Pain (Pain Scale 7-10) 04/09/17 21:45 04/16/17 21:44 Nebivolol (Bystolic) 20 mg DAILY ORAL 04/10/17 09:00 05/10/17 08:59 04/12/17 08:29 Nitroglycerin (Ntg) 0.4 mg Q5M X 3 DOSES PRN SL Prn Chest Pain 04/09/17 21:45 05/09/17 21:44 Ondansetron HCl (Zofran) 4 mg Q6H PRN IVP Nausea & Vomiting 04/09/17 21:45 05/09/17 21:44 Polyethylene Glycol (Miralax) 17 gm HSPRN PRN ORAL Constipation 04/09/17 21:45 05/09/17 21:44 Tamsulosin HCl (Flomax) 0.4 mg DAILY ORAL 04/10/17 09:00 05/10/17 08:59 04/12/17 08:29 Temazepam (Restoril) 15 mg HSPRN PRN ORAL Insomnia 04/09/17 21:45 04/16/17 21:44 04/09/17 23:05 TRINY VALVERDE April 12, 2017 14:51
[2017-04-12 16:00] VITALS: BP 144/65
--- NOTE | 2017-04-12 16:12 | Internal Med Progress Note ---
Subjective Date of Service: April 12, 2017 Physician Name Marquez,Chaparrita Attending Physician Warren Rosenbaum MD Current Medications Medications (Trade) Dose Ordered Sig/Meera Route PRN Reason Start Time Stop Time Status Last Admin Dose Admin Acetaminophen (Tylenol) 650 mg Q4H PRN ORAL T>100.5 04/09/17 21:45 05/09/17 21:44 Al Hydroxide/Mg Hydroxide (Mylanta II) 30 ml Q6H PRN ORAL dyspepsia 04/09/17 21:45 05/09/17 21:44 Albuterol/ Ipratropium (DuoNeb 0.5-3(2.5)mg/3ml) 3 ml Q4H PRN HHN Shortness of Breath 04/09/17 21:45 04/14/17 21:44 Amlodipine Besylate (Norvasc) 5 mg Q12HR ORAL 04/10/17 09:00 05/10/17 08:59 04/12/17 08:29 Aspirin (Ecotrin) 81 mg DAILY ORAL 04/10/17 09:00 05/10/17 08:59 04/12/17 08:29 Dextrose (Dextrose 50%) STAT PRN IV Hypoglycemia 04/09/17 21:45 05/09/17 21:44 Dextrose (Dextrose 50%) STAT PRN IV Hypoglycemia 04/12/17 10:15 05/12/17 10:14 Enalaprilat (Vasotec) 2.5 mg Q4H PRN IV sbp more than 200 04/09/17 21:45 05/09/17 21:44 Gabapentin (Neurontin) 300 mg Q8HR ORAL 04/09/17 22:00 05/09/17 21:59 04/12/17 13:50 Heparin Sodium (Porcine) (Heparin 5000 units/ml) 5,000 units EVERY 12 HOURS SUBQ 04/10/17 09:00 05/10/17 08:59 04/12/17 08:32 Hydralazine HCl (Apresoline) 20 mg Q4H PRN IV sbp more than 160 04/09/17 21:45 05/09/17 21:44 04/09/17 22:59 Insulin Aspart (NovoLOG) BEFORE MEALS AND HS SUBQ 04/10/17 06:30 05/10/17 06:29 04/12/17 11:36 Insulin Aspart (NovoLOG) 6 units NOVOTIAC SUBQ 04/12/17 11:50 05/12/17 11:49 04/12/17 11:36 Insulin Detemir (Levemir) 18 units DAILY SUBQ 04/12/17 11:00 05/12/17 10:59 04/12/17 11:35 Lorazepam (Ativan 2mg/ml 1ml) 0.5 mg Q4H PRN IV For Anxiety 04/09/17 21:45 04/16/17 21:44 Metformin HCl (Glucophage) 500 mg TIAC ORAL 04/12/17 11:30 05/12/17 11:29 04/12/17 11:34 Morphine Sulfate (Morphine Sulfate) 1 mg Q4H PRN IVP Severe Pain (Pain Scale 7-10) 04/09/17 21:45 04/16/17 21:44 Nebivolol (Bystolic) 20 mg DAILY ORAL 04/10/17 09:00 05/10/17 08:59 04/12/17 08:29 Nitroglycerin (Ntg) 0.4 mg Q5M X 3 DOSES PRN SL Prn Chest Pain 04/09/17 21:45 05/09/17 21:44 Ondansetron HCl (Zofran) 4 mg Q6H PRN IVP Nausea & Vomiting 04/09/17 21:45 05/09/17 21:44 Polyethylene Glycol (Miralax) 17 gm HSPRN PRN ORAL Constipation 04/09/17 21:45 05/09/17 21:44 Tamsulosin HCl (Flomax) 0.4 mg DAILY ORAL 04/10/17 09:00 05/10/17 08:59 04/12/17 08:29 Temazepam (Restoril) 15 mg HSPRN PRN ORAL Insomnia 04/09/17 21:45 04/16/17 21:44 04/09/17 23:05 Allergies: Coded Allergies: ATORVASTATIN CALCIUM (Unverified Adverse Reaction, Unknown, NAUSEA, 02/22/13 ) NAUSEA ROS Limited/Unobtainable: No Constitutional: Reports: no symptoms HEENT: Reports: no symptoms Cardiovascular: Reports: no symptoms Respiratory: Reports: shortness of breath Gastrointestinal/Abdominal: Reports: no symptoms Genitourinary: Reports: no symptoms Neurologic/Psychiatric: Reports: no symptoms Subjective 76 YO M admitted with syncope. Cover for Int Jean Pierre-Dr Rosenbaum. Objective Last Vital Signs Date Time Temp Pulse Resp B/P Pulse Ox O2 Delivery O2 Flow Rate FiO2 04/12/17 12:00 54 04/12/17 12:00 96.0 18 135/69 98 Room Air 04/11/17 19:16 21 Laboratory Tests Test 04/12/17 07:44 White Blood Count 5.0 K/UL (4.8-10.8) Red Blood Count 3.46 M/UL (4.70-6.10) L Hemoglobin 11.3 G/DL (14.2-18.0) L Hematocrit 32.8 % (42.0-52.0) L Mean Corpuscular Volume 95 FL (80-99) Mean Corpuscular Hemoglobin 32.7 PG (27.0-31.0) H Mean Corpuscular Hemoglobin Concent 34.6 G/DL (32.0-36.0) Red Cell Distribution Width 12.0 % (11.6-14.8) Platelet Count 137 K/UL (150-450) L Mean Platelet Volume 7.1 FL (6.5-10.1) Neutrophils (%) (Auto) 62.1 % (45.0-75.0) Lymphocytes (%) (Auto) 28.7 % (20.0-45.0) Monocytes (%) (Auto) 6.6 % (1.0-10.0) Eosinophils (%) (Auto) 1.5 % (0.0-3.0) Basophils (%) (Auto) 1.0 % (0.0-2.0) Sodium Level 140 mEQ/L (135-145) Potassium Level 4.0 mEQ/L (3.4-4.9) Chloride Level 100 mEQ/L (98-107) Carbon Dioxide Level 26 mEQ/L (20-30) Anion Gap 14 (5-15) Blood Urea Nitrogen 29 mg/dL (7-23) H Creatinine 1.3 mg/dL (0.7-1.2) H Estimat Glomerular Filtration Rate mL/min (>60) Glucose Level 208 mg/dL (74-106) H Calcium Level 8.5 mg/dL (8.6-10.2) L Microbiology Date/Time Source Procedure Growth Status 04/09/17 21:15 Nasal Nares MRSA Culture - Final NO METHICILLIN RESISTANT STAPH AUREUS... Complete 04/09/17 21:15 Rectum VRE Culture - Final NO VANCOMYCIN RESISTANT ENTEROCOCCUS ... Complete Intake and Output 04/11/17 04/12/17 19:00 07:00 Output Total 625 ml Balance -625 ml Output Urine Total 625 ml # Voids 2 Objective General: alert, cooperative, no distress, appears stated age Head: normocephalic, without obvious abnormality, atraumatic Eyes: Blind: conjunctivae/corneas clear. PERRL, EOM's intact Throat: lips, mucosa, and tongue normal. MMM Neck: supple, symmetrical, trachea midline, and no JVD Lungs: clear to auscultation bilaterally Heart: regular rate and rhythm, S1, S2 normal, no murmur, click, rub or gallop Abdomen: soft, non-tender, non-distended, bowel sounds normal; no masses or organomegaly Extremities: extremities normal, atraumatic, no cyanosis or edema Pulses: 2+ and symmetric Skin: skin color, texture, turgor normal; no rashes or lesions Neurologic: grossly normal, no focal deficits Assessment/Plan Problem List: (1) SOB (shortness of breath) on exertion (2) Renal failure Assessment & Plan: See nephrology note. (3) Diabetes mellitus, type II Assessment & Plan: Cont novolog sliding scale. (4) Hypercholesteremia (5) Blind in both eyes (6) Cerebral vascular disease (7) Syncope (8) Glaucoma (9) Hyperkalemia (10) HTN (hypertension) Assessment & Plan: Cont vasotec and hydralazine Assessment/Plan Discharge to nursing home facility. CHAPARRITA MARQUEZ April 12, 2017 16:12
[2017-04-12 20:00] VITALS: BP 140/59
--- NOTE | 2017-04-12 21:01 | Consultation ---
DATE OF CONSULTATION: 04/12/2017 CONSULTING PHYSICIAN: Mansoor Holman M.D. REFERRING PHYSICIAN: Warren Rosenbaum M.D. REASON FOR CONSULTATION: Diabetes management. HISTORY OF PRESENT ILLNESS: The patient is a 76-year-old male, , with a past medical history of diabetes, glaucoma, legally blind, history of hypertension, dyslipidemia, and previous stroke, who presented to the emergency department due to a syncopal episode. The patient does not recall the event. Endocrinology was consulted in order to assess the management of diabetes. PAST MEDICAL HISTORY: 1. Type 2 diabetes. 2. Hypertension. 3. CVA x3. 4. Glaucoma. 5. Legally blind. 6. Dyslipidemia. 7. Coronary artery disease. 8. Myocardial infarction. 9. Asthma. MEDICATIONS AT HOME: Reviewed and reconciled. He is on metformin and Humalog Mix 75/25 as an outpatient. ALLERGIES: Atorvastatin and calcium. REVIEW OF SYSTEMS: A 12-point review of systems was performed and pertinent positives and negatives are as mentioned in the history of present illness. PHYSICAL EXAMINATION: GENERAL: The patient is awake. VITAL SIGNS: Blood pressure 120/53, heart rate 63, temperature 97.4 degrees, and respirations 18. HEAD AND NECK: No JVD. HEART: Regular. LUNGS: Clear. ABDOMEN: Positive bowel sounds. EXTREMITIES: Trace edema. LABORATORY DATA: Sodium 140, potassium 4.0, chloride 100, and bicarbonate 26, BUN 29, creatinine 1.2, and glucose of 298. Glucose values more than 200. WBC 5, hemoglobin 11, hematocrit 32, and platelets are 137,000. DIAGNOSES: 1. Syncope. 2. Chronic kidney disease. 3. Diabetes, out of control PLAN: 1. Creatinine is 1.3 and 1.4, it is okay to use metformin. I will start 500 mg t.i.d. 2. Add Levemir 18 units daily, first dose now. 3. Add NovoLog 6 units before each meal, start with lunch. 4. NovoLog sliding scale has been ordered. 5. I will follow the patient during the hospital stay for the management of diabetes. Mansoor Holman M.D. DR: PEMA JOB#: [id number] CC: ALLI
[2017-04-12] MEDS ORDERED: Nitroglycerin Subl 0.4mg tab (Bottle Of 25) SL PRN (21:30)
[2017-04-12] MEDS ORDERED: Mylanta II UD 30ml ORAL PRN (21:45)
[2017-04-12] MEDS ORDERED: DuoNeb 0.5-3(2.5)mg/3ml neb HHN PRN (21:45)
[2017-04-12] MEDS ORDERED: LORazepam Inj 2mg/ml 1ml IV PRN (21:45)
[2017-04-12] MEDS ORDERED: Enalaprilat 2.5mg/2ml Inj IV PRN (21:45)
[2017-04-12] MEDS ORDERED: Morphine Sulfate 2mg/ml Inj IVP PRN (21:45)
[2017-04-12] MEDS ORDERED: Miralax 17gm pkt ORAL PRN (21:45)
[2017-04-13] VITALS: BP 117/40
[2017-04-13 04:00] VITALS: BP 101/42
[2017-04-13] MEDS: NovoLOG Insulin Flexpen SUBQ SCH ×7 (06:07→20:49)
[2017-04-13] MEDS ORDERED: metFORMIN 500mg tab ORAL SCH (06:30)
[2017-04-13 06:32] LABS: BASOPHILS % (AUTO) 1.1 % (0.0-2.0); LYMPHOCYTES % (AUTO) 28.7 % (20.0-45.0); MEAN CORPUSCULAR HEMOGLOBIN 32.3 PG (27.0-31.0); MEAN CORPUSCULAR HGB CONC 33.8 G/DL (32.0-36.0); MEAN CORPUSCULAR VOLUME 96 FL (80-99); MONOCYTES % (AUTO) 6.9 % (1.0-10.0); NEUTROPHILS % (AUTO) 61.3 % (45.0-75.0); PLATELET COUNT 151 K/UL (150-450); RED BLOOD COUNT 3.23 M/UL (4.70-6.10); RED CELL DISTRIBUTION WIDTH 12.4 % (11.6-14.8); WHITE BLOOD COUNT 4.8 K/UL (4.8-10.8)
[2017-04-13 07:07] LABS: ANION GAP 12 (5-15); CALCIUM 8.8 mg/dL (8.6-10.2); CARBON DIOXIDE 27 mEQ/L (20-30); CHLORIDE 103 mEQ/L (98-107); CREATININE 1.5 mg/dL (0.7-1.2); HEMOLYSIS 3; POTASSIUM 4.8 mEQ/L (3.4-4.9); SODIUM 142 mEQ/L (135-145)
[2017-04-13 08:00] VITALS: BP 122/57
--- NOTE | 2017-04-13 08:13 | General Progress Note ---
Assessment/Plan Problem List: (1) Glaucoma ICD Codes: H40.9 - Unspecified glaucoma SNOMED: 92475060 (2) HTN (hypertension) ICD Codes: I10 - Essential (primary) hypertension SNOMED: 98713829 (3) Diabetes ICD Codes: E11.9 - Type 2 diabetes mellitus without complications SNOMED: 88523139 Qualifiers: (4) Renal insufficiency ICD Codes: N28.9 - Disorder of kidney and ureter, unspecified SNOMED: 728625001 Assessment/Plan glycemic control improved Cr it up to 1.5 reduce Metformin to 500 mg bid continue Levemir 18 units qam continue Novolog 6 units ac tid + SSI Subjective Allergies: Coded Allergies: ATORVASTATIN CALCIUM (Unverified Adverse Reaction, Unknown, NAUSEA, 02/22/13 ) NAUSEA All Systems: reviewed and negative except above Subjective complaining of vision problem - ongoing - not acute appetite is good - finished breakfast tray Objective Last 24 Hour Vital Signs Date Time Temp Pulse Resp B/P Pulse Ox O2 Delivery O2 Flow Rate FiO2 04/13/17 04:00 97.9 56 19 101/42 97 Room Air 04/13/17 00:00 97.6 60 21 117/40 100 Room Air 04/12/17 21:00 62 67 70 04/12/17 20:55 61 140/59 04/12/17 20:00 97.9 61 21 140/59 96 Room Air 04/12/17 16:00 66 04/12/17 16:00 96.0 63 18 144/65 100 Room Air 04/12/17 12:00 54 04/12/17 12:00 96.0 54 18 135/69 98 Room Air 04/12/17 08:29 63 120/53 Intake and Output 04/12/17 04/13/17 19:00 07:00 Output Total 400 ml Balance -400 ml Output Urine Total 400 ml # Bowel Movements 2 2 Laboratory Tests 04/13/17 05:50: White Blood Count 4.8, Red Blood Count 3.23L, Hemoglobin 10.5L, Hematocrit 30.9L , Mean Corpuscular Volume 96, Mean Corpuscular Hemoglobin 32.3H, Mean Corpuscular Hemoglobin Concent 33.8, Red Cell Distribution Width 12.4, Platelet Count 151, Mean Platelet Volume 7.0, Neutrophils (%) (Auto) 61.3, Lymphocytes (% ) (Auto) 28.7, Monocytes (%) (Auto) 6.9, Eosinophils (%) (Auto) 2.0, Basophils ( %) (Auto) 1.1, Sodium Level 142, Potassium Level 4.8, Chloride Level 103, Carbon Dioxide Level 27, Anion Gap 12, Blood Urea Nitrogen 31H, Creatinine 1.5H , Estimat Glomerular Filtration Rate , Glucose Level 183H, Calcium Level 8.8 Height (Feet): 5 Height (Inches): 6.00 Weight (Pounds): 160 General Appearance: no apparent distress Neck: normal alignment Cardiovascular: normal rate Respiratory/Chest: chest wall non-tender Abdomen: normal bowel sounds Pelvis: normal external exam Edema: no edema noted Arm (L), no edema noted Arm (R), no edema noted Leg (L), no edema noted Leg (R), no edema noted Pedal (L), no edema noted Pedal (R), no edema noted Generalized Objective Current Medications Medications (Trade) Dose Ordered Sig/Meera Route PRN Reason Start Time Stop Time Status Last Admin Dose Admin Acetaminophen (Tylenol) 650 mg Q4H PRN ORAL T>100.5 04/12/17 21:45 05/12/17 21:44 Al Hydroxide/Mg Hydroxide (Mylanta II) 30 ml Q6H PRN ORAL dyspepsia 04/12/17 21:45 05/12/17 21:44 Albuterol/ Ipratropium (DuoNeb 0.5-3(2.5)mg/3ml) 3 ml Q4H PRN HHN Shortness of Breath 04/12/17 21:45 04/17/17 21:44 Amlodipine Besylate (Norvasc) 5 mg Q12HR ORAL 04/13/17 09:00 05/13/17 08:59 Aspirin (Ecotrin) 81 mg DAILY ORAL 04/13/17 09:00 05/13/17 08:59 Dextrose (Dextrose 50%) STAT PRN IV Hypoglycemia 04/12/17 21:45 05/12/17 21:44 Enalaprilat (Vasotec) 2.5 mg Q4H PRN IV sbp more than 200 04/12/17 21:45 05/12/17 21:44 Gabapentin (Neurontin) 300 mg Q8HR ORAL 04/12/17 22:00 05/12/17 21:59 04/13/17 06:01 Heparin Sodium (Porcine) (Heparin 5000 units/ml) 5,000 units EVERY 12 HOURS SUBQ 04/13/17 09:00 05/13/17 08:59 Insulin Aspart (NovoLOG) BEFORE MEALS AND HS SUBQ 04/13/17 06:30 05/13/17 06:29 04/13/17 06:07 Insulin Aspart (NovoLOG) 6 units NOVOTIAC SUBQ 04/13/17 06:30 05/13/17 06:29 04/13/17 06:07 Insulin Detemir (Levemir) 18 units DAILY SUBQ 04/13/17 09:00 05/13/17 08:59 Lorazepam (Ativan 2mg/ml 1ml) 0.5 mg Q4H PRN IV For Anxiety 04/12/17 21:45 04/19/17 21:44 Metformin HCl (Glucophage) 500 mg TIAC ORAL 04/13/17 06:30 05/13/17 06:29 04/13/17 06:01 Morphine Sulfate (Morphine Sulfate) 1 mg Q4H PRN IVP Severe Pain (Pain Scale 7-10) 04/12/17 21:45 04/19/17 21:44 Nebivolol (Bystolic) 20 mg DAILY ORAL 04/13/17 09:00 05/13/17 08:59 Nitroglycerin (Ntg) 0.4 mg Q5M X 3 DOSES PRN SL Prn Chest Pain 04/12/17 21:30 05/12/17 21:29 Ondansetron HCl (Zofran) 4 mg Q6H PRN IVP Nausea & Vomiting 04/12/17 21:45 05/12/17 21:44 Polyethylene Glycol (Miralax) 17 gm HSPRN PRN ORAL Constipation 04/12/17 21:45 05/12/17 21:44 Tamsulosin HCl (Flomax) 0.4 mg DAILY ORAL 04/13/17 09:00 05/13/17 08:59 Temazepam (Restoril) 15 mg HSPRN PRN ORAL Insomnia 04/12/17 21:45 04/19/17 21:44 Item Value Date Time Bedside Blood Glucose 180 mg/dl H 04/13/17 0630 Bedside Blood Glucose 147 mg/dl H 04/12/17 2100 Bedside Blood Glucose 99 mg/dl 04/12/17 1627 Bedside Blood Glucose 314 mg/dl H 04/12/17 1136 Bedside Blood Glucose 238 mg/dl H 04/12/17 0630 THIERRY GLASER April 13, 2017 08:13
[2017-04-13] MEDS: metFORMIN 500mg tab ORAL SCH ×2 (09:00→17:20)
[2017-04-13] MEDS: Aspirin EC 81mg tab ORAL SCH (09:08)
[2017-04-13] MEDS: Tamsulosin 0.4mg cap ORAL SCH (09:09)
[2017-04-13] MEDS: Levemir Flexpen SUBQ SCH (09:11)
[2017-04-13] MEDS: Heparin 5000 units/ml inj SUBQ SCH ×2 (09:16→20:48)
[2017-04-13 12:00] VITALS: BP 127/58
--- NOTE | 2017-04-13 14:30 | Cardiology Progress Note ---
Assessment/Plan Problem List: (1) HTN (hypertension) (2) Diabetes (3) Syncope (4) Blind in both eyes Status: stable, progressing Status Narrative Mr. Sadler is stable from a cardiac standpoint. Has ruled out for SD w/ neg troponins. LV function normal and no significant valve disease. He is not orthostatic. Transferred off telemetry. His bun/cr are increasing - ? prerenal Assessment/Plan Continue current medications for HTN, DM Physical therapy - assess gait. Consider outpt event monitor Increase hydration and repeat renal studies. Dc plan: to rehab center Subjective ROS Limited/Unobtainable: No Subjective Mr. Sadler has no c/o chest pain, dyspnea or dizziness, Objective Last 24 Hour Vital Signs Date Time Temp Pulse Resp B/P Pulse Ox O2 Delivery O2 Flow Rate FiO2 04/13/17 12:00 97.9 60 18 127/58 99 Room Air 04/13/17 09:09 66 122/57 04/13/17 08:00 96.8 66 17 122/57 97 Room Air 04/13/17 07:11 60 18 Room Air 04/13/17 04:00 97.9 56 19 101/42 97 Room Air 04/13/17 00:00 97.6 60 21 117/40 100 Room Air 04/12/17 21:00 62 67 70 04/12/17 20:55 61 140/59 04/12/17 20:00 97.9 61 21 140/59 96 Room Air 04/12/17 16:00 66 04/12/17 16:00 96.0 63 18 144/65 100 Room Air General Appearance: WD/WN, no apparent distress, alert EENT: PERRL/EOMI Neck: supple, no JVD Rhythm: NSR Cardiovascular: normal rate, regular rhythm, no gallop/murmur Respiratory/Chest: lungs clear Abdomen: non tender, soft Intake and Output 04/12/17 04/13/17 19:00 07:00 Output Total 400 ml Balance -400 ml Output Urine Total 400 ml # Bowel Movements 2 2 Laboratory Tests Test 04/13/17 05:50 White Blood Count 4.8 K/UL (4.8-10.8) Red Blood Count 3.23 M/UL (4.70-6.10) L Hemoglobin 10.5 G/DL (14.2-18.0) L Hematocrit 30.9 % (42.0-52.0) L Mean Corpuscular Volume 96 FL (80-99) Mean Corpuscular Hemoglobin 32.3 PG (27.0-31.0) H Mean Corpuscular Hemoglobin Concent 33.8 G/DL (32.0-36.0) Red Cell Distribution Width 12.4 % (11.6-14.8) Platelet Count 151 K/UL (150-450) Mean Platelet Volume 7.0 FL (6.5-10.1) Neutrophils (%) (Auto) 61.3 % (45.0-75.0) Lymphocytes (%) (Auto) 28.7 % (20.0-45.0) Monocytes (%) (Auto) 6.9 % (1.0-10.0) Eosinophils (%) (Auto) 2.0 % (0.0-3.0) Basophils (%) (Auto) 1.1 % (0.0-2.0) Sodium Level 142 mEQ/L (135-145) Potassium Level 4.8 mEQ/L (3.4-4.9) Chloride Level 103 mEQ/L (98-107) Carbon Dioxide Level 27 mEQ/L (20-30) Anion Gap 12 (5-15) Blood Urea Nitrogen 31 mg/dL (7-23) H Creatinine 1.5 mg/dL (0.7-1.2) H Estimat Glomerular Filtration Rate mL/min (>60) Glucose Level 183 mg/dL (74-106) H Calcium Level 8.8 mg/dL (8.6-10.2) JOSELINE JACOBO April 13, 2017 14:30
[2017-04-13 16:00] VITALS: BP 129/59
--- NOTE | 2017-04-13 16:29 | Internal Med Progress Note ---
Subjective Date of Service: April 13, 2017 Physician Name Chaparrita Marquez Attending Physician Warren Rosenbaum MD Current Medications Medications (Trade) Dose Ordered Sig/Meera Route PRN Reason Start Time Stop Time Status Last Admin Dose Admin Acetaminophen (Tylenol) 650 mg Q4H PRN ORAL T>100.5 04/12/17 21:45 05/12/17 21:44 Al Hydroxide/Mg Hydroxide (Mylanta II) 30 ml Q6H PRN ORAL dyspepsia 04/12/17 21:45 05/12/17 21:44 Albuterol/ Ipratropium (DuoNeb 0.5-3(2.5)mg/3ml) 3 ml Q4H PRN HHN Shortness of Breath 04/12/17 21:45 04/17/17 21:44 Amlodipine Besylate (Norvasc) 5 mg Q12HR ORAL 04/13/17 09:00 05/13/17 08:59 04/13/17 09:09 Aspirin (Ecotrin) 81 mg DAILY ORAL 04/13/17 09:00 05/13/17 08:59 04/13/17 09:08 Dextrose (Dextrose 50%) STAT PRN IV Hypoglycemia 04/12/17 21:45 05/12/17 21:44 Enalaprilat (Vasotec) 2.5 mg Q4H PRN IV sbp more than 200 04/12/17 21:45 05/12/17 21:44 Gabapentin (Neurontin) 300 mg Q8HR ORAL 04/12/17 22:00 05/12/17 21:59 04/13/17 14:52 Heparin Sodium (Porcine) (Heparin 5000 units/ml) 5,000 units EVERY 12 HOURS SUBQ 04/13/17 09:00 05/13/17 08:59 04/13/17 09:16 Insulin Aspart (NovoLOG) BEFORE MEALS AND HS SUBQ 04/13/17 06:30 05/13/17 06:29 04/13/17 12:03 Insulin Aspart (NovoLOG) 6 units NOVOTIAC SUBQ 04/13/17 06:30 05/13/17 06:29 04/13/17 12:02 Insulin Detemir (Levemir) 18 units DAILY SUBQ 04/13/17 09:00 05/13/17 08:59 04/13/17 09:11 Lorazepam (Ativan 2mg/ml 1ml) 0.5 mg Q4H PRN IV For Anxiety 04/12/17 21:45 04/19/17 21:44 Metformin HCl (Glucophage) 500 mg BID ORAL 04/13/17 09:00 05/13/17 08:59 Morphine Sulfate (Morphine Sulfate) 1 mg Q4H PRN IVP Severe Pain (Pain Scale 7-10) 04/12/17 21:45 04/19/17 21:44 Nebivolol (Bystolic) 20 mg DAILY ORAL 04/13/17 09:00 05/13/17 08:59 04/13/17 09:08 Nitroglycerin (Ntg) 0.4 mg Q5M X 3 DOSES PRN SL Prn Chest Pain 04/12/17 21:30 05/12/17 21:29 Ondansetron HCl (Zofran) 4 mg Q6H PRN IVP Nausea & Vomiting 04/12/17 21:45 05/12/17 21:44 Polyethylene Glycol (Miralax) 17 gm HSPRN PRN ORAL Constipation 04/12/17 21:45 05/12/17 21:44 Tamsulosin HCl (Flomax) 0.4 mg DAILY ORAL 04/13/17 09:00 05/13/17 08:59 04/13/17 09:09 Temazepam (Restoril) 15 mg HSPRN PRN ORAL Insomnia 04/12/17 21:45 04/19/17 21:44 Allergies: Coded Allergies: ATORVASTATIN CALCIUM (Unverified Adverse Reaction, Unknown, NAUSEA, 02/22/13 ) NAUSEA ROS Limited/Unobtainable: No Constitutional: Reports: no symptoms HEENT: Reports: no symptoms Cardiovascular: Reports: no symptoms Respiratory: Reports: no symptoms Gastrointestinal/Abdominal: Reports: no symptoms Genitourinary: Reports: no symptoms Neurologic/Psychiatric: Reports: no symptoms Subjective 76 YO M admitted with syncope. Cover for Int Olvin Rosenbaum. Objective Last Vital Signs Date Time Temp Pulse Resp B/P Pulse Ox O2 Delivery O2 Flow Rate FiO2 04/13/17 13:00 64 66 65 04/13/17 12:00 97.9 18 127/58 99 Room Air 04/11/17 19:16 21 Laboratory Tests Test 04/13/17 05:50 White Blood Count 4.8 K/UL (4.8-10.8) Red Blood Count 3.23 M/UL (4.70-6.10) L Hemoglobin 10.5 G/DL (14.2-18.0) L Hematocrit 30.9 % (42.0-52.0) L Mean Corpuscular Volume 96 FL (80-99) Mean Corpuscular Hemoglobin 32.3 PG (27.0-31.0) H Mean Corpuscular Hemoglobin Concent 33.8 G/DL (32.0-36.0) Red Cell Distribution Width 12.4 % (11.6-14.8) Platelet Count 151 K/UL (150-450) Mean Platelet Volume 7.0 FL (6.5-10.1) Neutrophils (%) (Auto) 61.3 % (45.0-75.0) Lymphocytes (%) (Auto) 28.7 % (20.0-45.0) Monocytes (%) (Auto) 6.9 % (1.0-10.0) Eosinophils (%) (Auto) 2.0 % (0.0-3.0) Basophils (%) (Auto) 1.1 % (0.0-2.0) Sodium Level 142 mEQ/L (135-145) Potassium Level 4.8 mEQ/L (3.4-4.9) Chloride Level 103 mEQ/L (98-107) Carbon Dioxide Level 27 mEQ/L (20-30) Anion Gap 12 (5-15) Blood Urea Nitrogen 31 mg/dL (7-23) H Creatinine 1.5 mg/dL (0.7-1.2) H Estimat Glomerular Filtration Rate mL/min (>60) Glucose Level 183 mg/dL (74-106) H Calcium Level 8.8 mg/dL (8.6-10.2) Intake and Output 04/12/17 04/13/17 19:00 07:00 Output Total 400 ml Balance -400 ml Output Urine Total 400 ml # Bowel Movements 2 2 Objective General: alert, cooperative, no distress, appears stated age Head: normocephalic, without obvious abnormality, atraumatic Eyes: Blind: conjunctivae/corneas clear. PERRL, EOM's intact Throat: lips, mucosa, and tongue normal. MMM Neck: supple, symmetrical, trachea midline, and no JVD Lungs: clear to auscultation bilaterally Heart: regular rate and rhythm, S1, S2 normal, no murmur, click, rub or gallop Abdomen: soft, non-tender, non-distended, bowel sounds normal; no masses or organomegaly Extremities: extremities normal, atraumatic, no cyanosis or edema Pulses: 2+ and symmetric Skin: skin color, texture, turgor normal; no rashes or lesions Neurologic: grossly normal, no focal deficits Assessment/Plan Problem List: (1) SOB (shortness of breath) on exertion (2) Renal failure Assessment & Plan: See nephrology note. (3) Diabetes mellitus, type II Assessment & Plan: Cont novolog sliding scale. (4) Hypercholesteremia (5) Blind in both eyes (6) Cerebral vascular disease (7) Syncope Assessment & Plan: See cardiology note. Cardiac workup neg (8) Glaucoma (9) Hyperkalemia (10) HTN (hypertension) Assessment & Plan: Cont vasotec and hydralazine Status: progressing Assessment/Plan [facility] CHAPARRITA MARQUEZ April 13, 2017 16:29
[2017-04-13] MEDS ORDERED: Tubing IV Secondary IV ONE (17:48)
[2017-04-13 20:00] VITALS: BP 125/55
[2017-04-14 00:33] VITALS: BP 130/55
[2017-04-14 04:39] VITALS: BP 127/60
[2017-04-14] MEDS: NovoLOG Insulin Flexpen SUBQ SCH ×6 (06:30→18:14)
[2017-04-14 06:50] LABS: EOSINOPHILS % (AUTO) 1.7 % (0.0-3.0); LYMPHOCYTES % (AUTO) 28.9 % (20.0-45.0); MEAN CORPUSCULAR HEMOGLOBIN 32.3 PG (27.0-31.0); MEAN CORPUSCULAR VOLUME 95 FL (80-99); MONOCYTES % (AUTO) 6.2 % (1.0-10.0); NEUTROPHILS % (AUTO) 62.2 % (45.0-75.0); PLATELET COUNT 142 K/UL (150-450); RED BLOOD COUNT 3.22 M/UL (4.70-6.10); RED CELL DISTRIBUTION WIDTH 12.4 % (11.6-14.8); WHITE BLOOD COUNT 5.1 K/UL (4.8-10.8)
[2017-04-14 07:08] LABS: ANION GAP 11 (5-15); CALCIUM 8.7 mg/dL (8.6-10.2); CARBON DIOXIDE 26 mEQ/L (20-30); CHLORIDE 108 mEQ/L (98-107); CREATININE 1.3 mg/dL (0.7-1.2); HEMOLYSIS 2; POTASSIUM 4.2 mEQ/L (3.4-4.9); SODIUM 145 mEQ/L (135-145)
--- NOTE | 2017-04-14 07:16 | General Progress Note ---
Assessment/Plan Problem List: (1) Glaucoma ICD Codes: H40.9 - Unspecified glaucoma SNOMED: 90251831 (2) HTN (hypertension) ICD Codes: I10 - Essential (primary) hypertension SNOMED: 78822785 (3) Diabetes ICD Codes: E11.9 - Type 2 diabetes mellitus without complications SNOMED: 61863555 Qualifiers: (4) Renal insufficiency ICD Codes: N28.9 - Disorder of kidney and ureter, unspecified SNOMED: 317139323 Assessment/Plan continue Metformin to 500 mg bid continue Levemir 18 units qam continue Novolog 6 units ac tid + SSI Subjective Allergies: Coded Allergies: ATORVASTATIN CALCIUM (Unverified Adverse Reaction, Unknown, NAUSEA, 02/22/13 ) NAUSEA All Systems: reviewed and negative except above Subjective events noted Objective Last 24 Hour Vital Signs Date Time Temp Pulse Resp B/P Pulse Ox O2 Delivery O2 Flow Rate FiO2 04/14/17 04:39 97.5 54 18 127/60 99 Room Air 04/14/17 00:33 98.1 54 17 130/55 99 Room Air 04/13/17 21:19 56 61 62 04/13/17 20:47 59 129/59 04/13/17 20:00 97.7 55 19 125/55 100 Room Air 04/13/17 19:00 65 18 Room Air 04/13/17 16:00 97.2 59 17 129/59 99 Room Air 04/13/17 13:00 64 66 65 04/13/17 12:00 97.9 60 18 127/58 99 Room Air 04/13/17 09:09 66 122/57 04/13/17 09:00 64 66 65 04/13/17 08:00 96.8 66 17 122/57 97 Room Air Intake and Output 04/13/17 04/14/17 19:00 07:00 Intake Total 350 ml 240 ml Output Total 100 ml 500 ml Balance 250 ml -260 ml Intake Oral 350 ml 240 ml Output Urine Total 100 ml 500 ml # Bowel Movements 1 Laboratory Tests 04/14/17 05:15: White Blood Count 5.1, Red Blood Count 3.22L, Hemoglobin 10.4L, Hematocrit 30.6L , Mean Corpuscular Volume 95, Mean Corpuscular Hemoglobin 32.3H, Mean Corpuscular Hemoglobin Concent 34.0, Red Cell Distribution Width 12.4, Platelet Count 142L, Mean Platelet Volume 7.0, Neutrophils (%) (Auto) 62.2, Lymphocytes ( %) (Auto) 28.9, Monocytes (%) (Auto) 6.2, Eosinophils (%) (Auto) 1.7, Basophils (%) (Auto) 1.0, Sodium Level 145, Potassium Level 4.2, Chloride Level 108H, Carbon Dioxide Level 26, Anion Gap 11, Blood Urea Nitrogen 25H, Creatinine 1.3H , Estimat Glomerular Filtration Rate , Glucose Level 102, Calcium Level 8.7 Height (Feet): 5 Height (Inches): 6.00 Weight (Pounds): 160 General Appearance: no apparent distress Neck: normal alignment Cardiovascular: regular rhythm Respiratory/Chest: lungs clear Abdomen: normal bowel sounds Objective Current Medications Medications (Trade) Dose Ordered Sig/Meera Route PRN Reason Start Time Stop Time Status Last Admin Dose Admin Acetaminophen (Tylenol) 650 mg Q4H PRN ORAL T>100.5 04/12/17 21:45 05/12/17 21:44 Al Hydroxide/Mg Hydroxide (Mylanta II) 30 ml Q6H PRN ORAL dyspepsia 04/12/17 21:45 05/12/17 21:44 Albuterol/ Ipratropium (DuoNeb 0.5-3(2.5)mg/3ml) 3 ml Q4H PRN HHN Shortness of Breath 04/12/17 21:45 04/17/17 21:44 Amlodipine Besylate (Norvasc) 5 mg Q12HR ORAL 04/13/17 09:00 05/13/17 08:59 04/13/17 20:47 Aspirin (Ecotrin) 81 mg DAILY ORAL 04/13/17 09:00 05/13/17 08:59 04/13/17 09:08 Brimonidine Tartrate (Alphagan) 1 drop BID OP 04/14/17 09:00 05/14/17 08:59 Dextrose (Dextrose 50%) STAT PRN IV Hypoglycemia 04/12/17 21:45 05/12/17 21:44 Enalaprilat (Vasotec) 2.5 mg Q4H PRN IV sbp more than 200 04/12/17 21:45 05/12/17 21:44 Gabapentin (Neurontin) 300 mg Q8HR ORAL 04/12/17 22:00 05/12/17 21:59 04/14/17 06:33 Heparin Sodium (Porcine) (Heparin 5000 units/ml) 5,000 units EVERY 12 HOURS SUBQ 04/13/17 09:00 05/13/17 08:59 04/13/17 20:48 Insulin Aspart (NovoLOG) BEFORE MEALS AND HS SUBQ 04/13/17 06:30 05/13/17 06:29 04/13/17 20:49 Insulin Aspart (NovoLOG) 6 units NOVOTIAC SUBQ 04/13/17 06:30 05/13/17 06:29 04/13/17 17:26 Insulin Detemir (Levemir) 18 units DAILY SUBQ 04/13/17 09:00 05/13/17 08:59 04/13/17 09:11 Lorazepam (Ativan 2mg/ml 1ml) 0.5 mg Q4H PRN IV For Anxiety 04/12/17 21:45 04/19/17 21:44 Metformin HCl (Glucophage) 500 mg BID ORAL 04/13/17 09:00 05/13/17 08:59 04/13/17 17:20 Morphine Sulfate (Morphine Sulfate) 1 mg Q4H PRN IVP Severe Pain (Pain Scale 7-10) 04/12/17 21:45 04/19/17 21:44 Nebivolol (Bystolic) 20 mg DAILY ORAL 04/13/17 09:00 05/13/17 08:59 04/13/17 09:08 Nitroglycerin (Ntg) 0.4 mg Q5M X 3 DOSES PRN SL Prn Chest Pain 04/12/17 21:30 05/12/17 21:29 Ondansetron HCl (Zofran) 4 mg Q6H PRN IVP Nausea & Vomiting 04/12/17 21:45 05/12/17 21:44 Polyethylene Glycol (Miralax) 17 gm HSPRN PRN ORAL Constipation 04/12/17 21:45 05/12/17 21:44 Tamsulosin HCl (Flomax) 0.4 mg DAILY ORAL 04/13/17 09:00 05/13/17 08:59 04/13/17 09:09 Temazepam (Restoril) 15 mg HSPRN PRN ORAL Insomnia 04/12/17 21:45 04/19/17 21:44 04/14/17 00:35 Timolol Maleate (Timoptic 0.5% Op Soln) 1 drop TWICE A DAY BOTH EYES 04/14/17 09:00 05/14/17 08:59 Item Value Date Time Bedside Blood Glucose 108 mg/dl 04/14/17 0630 Bedside Blood Glucose 212 mg/dl H 04/13/17 2100 Bedside Blood Glucose 255 mg/dl H 04/13/17 1726 Bedside Blood Glucose 284 mg/dl H 04/13/17 1203 Bedside Blood Glucose 180 mg/dl H 04/13/17 0911 Bedside Blood Glucose 180 mg/dl H 04/13/17 0630 THIERRY GLASER April 14, 2017 07:16
[2017-04-14 08:00] VITALS: BP 124/55
--- NOTE | 2017-04-14 08:00 | Nephrology Progress Note ---
Assessment/Plan Assessment 1.hyperkalemia resolved 2.ARF 2.CKD stable 3.HTN 4.Syncopal episode Plan 1.to continue low k diet 2.continue current meds 3.avoid NSAID 4.MAY need to stop enalapril Subjective Constitutional: Reports: no symptoms HEENT: Reports: no symptoms Genitourinary: Reports: no symptoms Neurologic/Psychiatric: Reports: no symptoms Subjective awake no events Objective Objective Last 24 Hour Vital Signs Date Time Temp Pulse Resp B/P Pulse Ox O2 Delivery O2 Flow Rate FiO2 04/14/17 04:39 97.5 54 18 127/60 99 Room Air 04/14/17 00:33 98.1 54 17 130/55 99 Room Air 04/13/17 21:19 56 61 62 04/13/17 20:47 59 129/59 04/13/17 20:00 97.7 55 19 125/55 100 Room Air 04/13/17 19:00 65 18 Room Air 04/13/17 16:00 97.2 59 17 129/59 99 Room Air 04/13/17 13:00 64 66 65 04/13/17 12:00 97.9 60 18 127/58 99 Room Air 04/13/17 09:09 66 122/57 04/13/17 09:00 64 66 65 04/13/17 08:00 96.8 66 17 122/57 97 Room Air Intake and Output 04/13/17 04/14/17 19:00 07:00 Intake Total 350 ml 240 ml Output Total 100 ml 500 ml Balance 250 ml -260 ml Intake Oral 350 ml 240 ml Output Urine Total 100 ml 500 ml # Bowel Movements 1 Laboratory Tests 04/14/17 05:15: White Blood Count 5.1, Red Blood Count 3.22L, Hemoglobin 10.4L, Hematocrit 30.6L , Mean Corpuscular Volume 95, Mean Corpuscular Hemoglobin 32.3H, Mean Corpuscular Hemoglobin Concent 34.0, Red Cell Distribution Width 12.4, Platelet Count 142L, Mean Platelet Volume 7.0, Neutrophils (%) (Auto) 62.2, Lymphocytes ( %) (Auto) 28.9, Monocytes (%) (Auto) 6.2, Eosinophils (%) (Auto) 1.7, Basophils (%) (Auto) 1.0, Sodium Level 145, Potassium Level 4.2, Chloride Level 108H, Carbon Dioxide Level 26, Anion Gap 11, Blood Urea Nitrogen 25H, Creatinine 1.3H , Estimat Glomerular Filtration Rate , Glucose Level 102, Calcium Level 8.7 Height (Feet): 5 Height (Inches): 6.00 Weight (Pounds): 160 Objective HEAD AND NECK: No JVP. No LAD. No thyromegaly. bruit. LUNGS: Clear to auscultation. CARDIAC: Regular rate and rhythm. S1-S2. No murmur. No rub. ABDOMEN: Soft, nontender, and nondistended. EXTREMITIES: Trace edema. No clubbing. No cyanosis. CHEO COVARRUBIAS April 14, 2017 08:00
[2017-04-14] MEDS: Heparin 5000 units/ml inj SUBQ SCH ×2 (09:00→10:38)
[2017-04-14] MEDS: Brimonidine 0.2% Opth Sol OP SCH ×2 (09:15→18:11)
[2017-04-14] MEDS: metFORMIN 500mg tab ORAL SCH ×2 (09:15→18:09)
[2017-04-14] MEDS: Aspirin EC 81mg tab ORAL SCH (09:15)
[2017-04-14] MEDS: Timolol 0.5% Op Soln 2.5ml BOTH EYES SCH ×2 (09:15→18:09)
[2017-04-14] MEDS: Tamsulosin 0.4mg cap ORAL SCH (09:15)
[2017-04-14] MEDS: Levemir Flexpen SUBQ SCH (09:26)
[2017-04-14 10:20] LABS: CREATININE RANDOM URINE 88.6 mg/dL (Not Estab.); MICROALBUMIN/CREATININE RATIO 34.4 mg/g creat (0.0-30.0)
[2017-04-14 12:00] VITALS: BP 131/61
--- NOTE | 2017-04-14 15:12 | Internal Med Progress Note ---
Subjective Physician Name Warren Rosenbaum Attending Physician Warren Rosenbaum MD Current Medications Medications (Trade) Dose Ordered Sig/Meera Route PRN Reason Start Time Stop Time Status Last Admin Dose Admin Acetaminophen (Tylenol) 650 mg Q4H PRN ORAL T>100.5 04/12/17 21:45 05/12/17 21:44 Al Hydroxide/Mg Hydroxide (Mylanta II) 30 ml Q6H PRN ORAL dyspepsia 04/12/17 21:45 05/12/17 21:44 Albuterol/ Ipratropium (DuoNeb 0.5-3(2.5)mg/3ml) 3 ml Q4H PRN HHN Shortness of Breath 04/12/17 21:45 04/17/17 21:44 Amlodipine Besylate (Norvasc) 5 mg Q12HR ORAL 04/13/17 09:00 05/13/17 08:59 04/14/17 09:19 Aspirin (Ecotrin) 81 mg DAILY ORAL 04/13/17 09:00 05/13/17 08:59 04/14/17 09:15 Brimonidine Tartrate (Alphagan) 1 drop BID OP 04/14/17 09:00 05/14/17 08:59 04/14/17 09:15 Dextrose (Dextrose 50%) STAT PRN IV Hypoglycemia 04/12/17 21:45 05/12/17 21:44 Enalaprilat (Vasotec) 2.5 mg Q4H PRN IV sbp more than 200 04/12/17 21:45 05/12/17 21:44 Gabapentin (Neurontin) 300 mg Q8HR ORAL 04/12/17 22:00 05/12/17 21:59 04/14/17 13:09 Heparin Sodium (Porcine) (Heparin 5000 units/ml) 5,000 units EVERY 12 HOURS SUBQ 04/14/17 21:00 05/14/17 20:59 Insulin Aspart (NovoLOG) BEFORE MEALS AND HS SUBQ 04/13/17 06:30 05/13/17 06:29 04/14/17 10:39 Insulin Aspart (NovoLOG) 6 units NOVOTIAC SUBQ 04/13/17 06:30 05/13/17 06:29 04/14/17 13:03 Insulin Detemir (Levemir) 18 units DAILY SUBQ 04/13/17 09:00 05/13/17 08:59 04/14/17 09:26 Lorazepam (Ativan 2mg/ml 1ml) 0.5 mg Q4H PRN IV For Anxiety 04/12/17 21:45 04/19/17 21:44 Metformin HCl (Glucophage) 500 mg BID ORAL 04/13/17 09:00 05/13/17 08:59 04/14/17 09:15 Morphine Sulfate (Morphine Sulfate) 1 mg Q4H PRN IVP Severe Pain (Pain Scale 7-10) 04/12/17 21:45 04/19/17 21:44 Nebivolol (Bystolic) 20 mg DAILY ORAL 04/13/17 09:00 05/13/17 08:59 04/14/17 09:16 Nitroglycerin (Ntg) 0.4 mg Q5M X 3 DOSES PRN SL Prn Chest Pain 04/12/17 21:30 05/12/17 21:29 Ondansetron HCl (Zofran) 4 mg Q6H PRN IVP Nausea & Vomiting 04/12/17 21:45 05/12/17 21:44 Polyethylene Glycol (Miralax) 17 gm HSPRN PRN ORAL Constipation 04/12/17 21:45 05/12/17 21:44 Tamsulosin HCl (Flomax) 0.4 mg DAILY ORAL 04/13/17 09:00 05/13/17 08:59 04/14/17 09:15 Temazepam (Restoril) 15 mg HSPRN PRN ORAL Insomnia 04/12/17 21:45 04/19/17 21:44 04/14/17 00:35 Timolol Maleate (Timoptic 0.5% Op Soln) 1 drop TWICE A DAY BOTH EYES 04/14/17 09:00 05/14/17 08:59 04/14/17 09:15 Allergies: Coded Allergies: ATORVASTATIN CALCIUM (Unverified Adverse Reaction, Unknown, NAUSEA, 02/22/13 ) NAUSEA Subjective awake, alert, responsive, NAD Objective Last Vital Signs Date Time Temp Pulse Resp B/P Pulse Ox O2 Delivery O2 Flow Rate FiO2 04/14/17 12:00 96.4 52 17 131/61 99 Room Air 04/11/17 19:16 21 Laboratory Tests Test 04/14/17 05:15 White Blood Count 5.1 K/UL (4.8-10.8) Red Blood Count 3.22 M/UL (4.70-6.10) L Hemoglobin 10.4 G/DL (14.2-18.0) L Hematocrit 30.6 % (42.0-52.0) L Mean Corpuscular Volume 95 FL (80-99) Mean Corpuscular Hemoglobin 32.3 PG (27.0-31.0) H Mean Corpuscular Hemoglobin Concent 34.0 G/DL (32.0-36.0) Red Cell Distribution Width 12.4 % (11.6-14.8) Platelet Count 142 K/UL (150-450) L Mean Platelet Volume 7.0 FL (6.5-10.1) Neutrophils (%) (Auto) 62.2 % (45.0-75.0) Lymphocytes (%) (Auto) 28.9 % (20.0-45.0) Monocytes (%) (Auto) 6.2 % (1.0-10.0) Eosinophils (%) (Auto) 1.7 % (0.0-3.0) Basophils (%) (Auto) 1.0 % (0.0-2.0) Sodium Level 145 mEQ/L (135-145) Potassium Level 4.2 mEQ/L (3.4-4.9) Chloride Level 108 mEQ/L (98-107) H Carbon Dioxide Level 26 mEQ/L (20-30) Anion Gap 11 (5-15) Blood Urea Nitrogen 25 mg/dL (7-23) H Creatinine 1.3 mg/dL (0.7-1.2) H Estimat Glomerular Filtration Rate mL/min (>60) Glucose Level 102 mg/dL (74-106) Calcium Level 8.7 mg/dL (8.6-10.2) Intake and Output 04/13/17 04/14/17 19:00 07:00 Intake Total 350 ml 240 ml Output Total 100 ml 500 ml Balance 250 ml -260 ml Intake Oral 350 ml 240 ml Output Urine Total 100 ml 500 ml # Bowel Movements 1 Objective GENERAL: The patient is awake, responsive, and in no acute distress. HEAD AND NECK: Pupils are equal and reactive to light. Extraocular movements are intact. NECK: Supple. No JVD. LUNGS: Good air entry. No wheezing or rales. HEART: S1 and S2. Distant heart sounds. No gallops. ABDOMEN: Soft, flat and nontender. Positive bowel sounds. EXTREMITIES: No cyanosis, clubbing, or edema. NEUROLOGIC: Cranial nerves II through XII are grossly. The patient is moving all extremities. PSYCHIATRIC: Mood and affect is intact. 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 Warren Rosenbaum MD April 14, 2017 15:12
[2017-04-14 16:00] VITALS: BP 123/56
[2017-04-14] MEDS ORDERED: Heparin 5000 units/ml inj SUBQ SCH (21:00)
== END 2017-04-14 19:04 | DRG 913 ==
LOC: EDBD 14:22 → EMR 17:24 → 2E 17:29 → EDBEDREQ 19:59 → 3E 04-12 21:17
PROC: 0HQ0XZZ Repair Scalp Skin, External Approach (ICD-10-PCS; principal; 2017-04-09)
DX: S09.90XA Unspecified injury of head, initial encounter (principal); N17.0 Acute kidney failure with tubular necrosis; H40.9 Unspecified glaucoma; I12.9 Hypertensive chronic kidney disease with stage 1 through stage 4 chronic kidney disease, or unspecified chronic kidney disease; S01.01XA Laceration without foreign body of scalp, initial encounter; E11.65 Type 2 diabetes mellitus with hyperglycemia; E11.22 Type 2 diabetes mellitus with diabetic chronic kidney disease; E87.5 Hyperkalemia; R55 Syncope and collapse; H54.8 Legal blindness, as defined in USA; W19.XXXA Unspecified fall, initial encounter; E78.5 Hyperlipidemia, unspecified; I25.10 Atherosclerotic heart disease of native coronary artery without angina pectoris; I25.2 Old myocardial infarction; N18.9 Chronic kidney disease, unspecified; Z86.73 Personal history of transient ischemic attack (TIA), and cerebral infarction without residual deficits; E11.319 Type 2 diabetes mellitus with unspecified diabetic retinopathy without macular edema; Z79.4 Long term (current) use of insulin; Z88.8 Allergy status to other drugs, medicaments and biological substances; I65.29 Occlusion and stenosis of unspecified carotid artery; R06.02 Shortness of breath; I67.9 Cerebrovascular disease, unspecified
CPT/HCPCS: 36415; 70450; 71010; 80048; 80053; 80061; 81003; 82043; 82044; 82550; 82570; 82962; 83880; 84300; 84443; 84484; 85007; 85025; 85610; 85730; 87081; 90471; 90715; 93005; 93306; 93880; 94664; J1815; S5561

== ENCOUNTER 2017-06-27 13:15 | Inpatient (IN) | payer MEDICARE, OTHER ==
[2017-06-27] VITALS (7 sets, daily range): BP systolic 146–189; BP diastolic 55–85
[~2017-06-27] VITALS: Ht 165.1 cm; Wt 49.9 kg
[~2017-06-27 13:15] MED LIST changes: +METFORMIN HCL500 M4 ORAL
[2017-06-27 13:54] LABS: BASOPHILS % (AUTO) 1.2 % (0.0-2.0); EOSINOPHILS % (AUTO) 1.4 % (0.0-3.0); LYMPHOCYTES % (AUTO) 22.4 % (20.0-45.0); MEAN CORPUSCULAR HEMOGLOBIN 32.5 PG (27.0-31.0); MEAN CORPUSCULAR HGB CONC 33.2 G/DL (32.0-36.0); MEAN CORPUSCULAR VOLUME 98 FL (80-99); MEAN PLATELET VOLUME 7.4 FL (6.5-10.1); MONOCYTES % (AUTO) 5.5 % (1.0-10.0); NEUTROPHILS % (AUTO) 69.5 % (45.0-75.0); PLATELET COUNT 161 K/UL (150-450); RED BLOOD COUNT 3.78 M/UL (4.70-6.10); RED CELL DISTRIBUTION WIDTH 12.1 % (11.6-14.8); WHITE BLOOD COUNT 4.7 K/UL (4.8-10.8)
[2017-06-27 14:04] LABS: TROPONIN I < 0.30 ng/mL (<=0.30)
[2017-06-27 14:08] LABS: ALANINE AMINOTRANSFERASE 9 U/L (3-41); ALBUMIN/GLOBULIN RATIO 1.5 (1.0-2.7); ANION GAP 12 (5-15); ASPARTATE AMINO TRANSFERASE 11 U/L (5-40); CALCIUM 9.3 mg/dL (8.6-10.2); CARBON DIOXIDE 27 mEQ/L (20-30); CHLORIDE 101 mEQ/L (98-107); CREATININE 1.3 mg/dL (0.7-1.2); HEMOLYSIS 13; POTASSIUM 4.9 mEQ/L (3.4-4.9); SODIUM 140 mEQ/L (135-145); TOTAL PROTEIN 6.7 g/dL (6.6-8.7)
[2017-06-27 14:18] LABS: CKMB < 1.5 ng/mL (< 6.7)
--- NOTE | 2017-06-27 14:31 | Emergency Room Report ---
History of Present Illness General Chief Complaint: Syncope Source: Patient, Medical Record, EMS Present Illness HPI [id number] BIBEMS for 2x episode of syncope this morning Occurred on way to bathroom and again after BM Currently feels "weak" Denies chest pain, SOB, abd pain, urinary complaints Atraumatic Admit in March also for vasovagal syncope EF on Echo was normal Was on 2x beta-blockers, was suggested he stop atenolol He's not sure what he takes now but there are no beta-blockers in list/box of meds he has with him Allergies: Coded Allergies: ATORVASTATIN CALCIUM (Unverified Adverse Reaction, Unknown, NAUSEA, 02/22/13 ) NAUSEA Patient History Past Medical History: old chart reviewed, other - see hpi Past Surgical History: none Pertinent Family History: none Social History: Denies: alcohol use, drug use, smoking Immunizations: UTD Reviewed Nursing Documentation: PMH: Agreed, PSxH: Agreed Nursing Documentation-PMH Past Medical History: No History, Except For Hx Cardiac Problems: No Hx Hypertension: Yes Hx Pacemaker: No Hx COPD: No Hx Diabetes: Yes Hx Cancer: No Hx Gastrointestinal Problems: No - glaucoma Hx Dialysis: No Hx Neurological Problems: No Hx Cerebrovascular Accident: No Hx Seizures: No Hx Dizziness: Yes Hx Syncope: Yes Hx Headaches: Yes Hx Weakness: Yes Hx Fatigue: Yes Review of Systems All Other Systems: negative except mentioned in HPI Physical Exam Vital Signs Date Time Temp Pulse Resp B/P Pulse Ox O2 Delivery O2 Flow Rate FiO2 06/27/17 13:11 98.1 67 18 165/75 100 Room Air Sp02 EP Interpretation: reviewed, normal General Appearance: normal inspection, well appearing, no apparent distress, alert, GCS 15, non-toxic Head: normocephalic, atraumatic Eyes: bilateral eye EOMI, bilateral eye PERRL ENT: normal ENT inspection, hearing grossly normal, normal voice Neck: normal inspection, full range of motion, supple, no bony tend Respiratory: normal inspection, lungs clear, normal breath sounds, no respiratory distress, no retraction, no wheezing Cardiovascular #1: regular rate, rhythm, no edema Gastrointestinal: normal inspection, normal bowel sounds, non tender, soft, no guarding, no hernia Genitourinary: no CVA tenderness Musculoskeletal: normal inspection, back normal, normal range of motion, Melissa' s Sign negative Neurologic: normal inspection, alert, oriented x3, responsive, pulmonologist III-XII nml as tested, motor strength/tone normal, speech normal Psychiatric: normal inspection, judgement/insight normal, mood/affect normal Skin: normal inspection, normal color, no rash Lymphatic: normal inspection Medical Decision Making Medicare Attestation I Windy Graves MD hereby attest that the medical record entry for date of service, 06/27/17 accurately reflects signatures/notations that I made in my capacity as MD when I treated/diagnosed the above listed Medicare beneficiary. I attest that this information is true, accurate and complete to the best of my knowledge. I understand that any falsification, omission, or concealment of material fact may subject me to administrative, civil, or criminal liability. This patient warrants hospital admission for extreme of age and has a condition that cannot be treated as outpatient. Diagnostic Impression: Primary Impression: Syncope Qualified Codes: R55 - Syncope and collapse ER Course ECG unchanged from previous H&H stable. No leuks. Troponin 0. CXR: No acute abnormality Likely vasovagal syncope Needs tele monitoring, admission given age, PMHx Endorsed to Dr Rosenbaum at 3pm EKG Diagnostic Results Rate: normal, other - LAFB, RBBB, LVH Rhythm: NSR ST Segments: no acute changes ASA given to the pt in ED: No Rhythm Strip Diag. Results EP Interpretation: yes Rate: 56 Rhythm: NSR, no PVC's, no ectopy Chest X-Ray Diagnostic Results Chest X-Ray Diagnostic Results : Chest X-Ray Ordered: Yes # of Views/Limited/Complete: 1 View Indication: Chest Pain EP Interpretation: Yes Interpretation: no consolidation, no effusion, no pneumothorax, no acute cardiopulmonary disease Interpreting ER Provider: Electronically signed by Dr Graves Last Vital Signs Date Time Temp Pulse Resp B/P Pulse Ox O2 Delivery O2 Flow Rate FiO2 06/27/17 13:30 98.7 67 18 159/73 100 Room Air Status: improved Disposition: ADMITTED INPATIENT Condition: Serious WINDY GRAVES M.D. Jun 27, 2017 14:31
[2017-06-27] MEDS ORDERED: TIMOPTIC 0.5%1 EACH OP (14:32)
[2017-06-27] MEDS ORDERED: CYMBALTA30 MG ORAL (14:32)
[2017-06-27] MEDS ORDERED: BENADRYL25 M3 PO (14:32)
[2017-06-27] MEDS: HydrALAZINE 25mg tab ORAL SCH (20:15)
[2017-06-28] VITALS: BP 115/57
[2017-06-28 06:05] VITALS: BP 109/55
[2017-06-28 07:11] LABS: BASOPHILS % (AUTO) 1.1 % (0.0-2.0); EOSINOPHILS % (AUTO) 2.1 % (0.0-3.0); LYMPHOCYTES % (AUTO) 32.6 % (20.0-45.0); MEAN CORPUSCULAR HEMOGLOBIN 32.4 PG (27.0-31.0); MEAN CORPUSCULAR VOLUME 98 FL (80-99); MEAN PLATELET VOLUME 6.7 FL (6.5-10.1); MONOCYTES % (AUTO) 6.4 % (1.0-10.0); NEUTROPHILS % (AUTO) 57.8 % (45.0-75.0); PLATELET COUNT 180 K/UL (150-450); RED BLOOD COUNT 3.76 M/UL (4.70-6.10); WHITE BLOOD COUNT 5.7 K/UL (4.8-10.8)
[2017-06-28 07:20] LABS: ALANINE AMINOTRANSFERASE 8 U/L (3-41); ANION GAP 8 (5-15); ASPARTATE AMINO TRANSFERASE 10 U/L (5-40); BILIRUBIN,DIRECT 0.1 mg/dL (0.1-0.3); CALCIUM 9.3 mg/dL (8.6-10.2); CARBON DIOXIDE 30 mEQ/L (20-30); CHLORIDE 103 mEQ/L (98-107); CREATININE 1.3 mg/dL (0.7-1.2); HEMOLYSIS 6; POTASSIUM 4.7 mEQ/L (3.4-4.9); SODIUM 141 mEQ/L (135-145); TOTAL PROTEIN 6.2 g/dL (6.6-8.7)
[2017-06-28 07:49] VITALS: BP 151/71
[2017-06-28] MEDS: HydrALAZINE 25mg tab ORAL SCH ×3 (09:16→17:15)
--- NOTE | 2017-06-28 10:33 | Consultation ---
History of Present Illness General Date patient seen: Jun 28, 2017 Chief Complaint: Syncope Referring physician: Dr. Guerra Reason for Consultation: inpatient management Present Illness HPI 76 year of male with hx of DM and HTN, with recent hospitalization for uncontrolled Diabetes, presented to ER for 2x episode of syncope on way to bathroom and again after BM Currently feels "weak". He is admitted to telemetry for further work up. Allergies: Coded Allergies: ATORVASTATIN CALCIUM (Unverified Adverse Reaction, Unknown, NAUSEA, 02/22/13 ) NAUSEA Medication History Scheduled Aspirin* (Aspir 81*), 81 MG PO DAILY, (Reported) Atenolol* (Tenormin*), 20 MG ORAL DAILY, (Reported) Brimonidine Tartrate/Timolol (Combigan Eye Drops), 5 BOTH EYES BID, (Reported) Brinzolamide (Azopt), BOTH EYES TID, (Reported) Cholecalciferol (Vitamin D3)* (Vitamin D*), 5,000 UNITS PO DAILY, (Reported) Duloxetine Hcl* (Cymbalta*), 30 MG ORAL DAILY, (Reported) Folic Acid/Mv,Fe,Other Min (Centrum Multivitamin Tab Chew), 1 EACH PO DAILY, ( Reported) Gabapentin* (Gabapentin*), 300 MG PO BID, (Reported) Insulin Aspart* (Novolog*), 0 SUBQ .SLIDING SCALE, (Reported) Metformin Hcl (Metformin Hcl Er), Unknown Dose ORAL DAILY, (Reported) Nebivolol Hcl (Bystolic*), 20 MG PO DAILY, (Reported) [place]-3 Acid Ethyl Esters (Lovaza), 1 GM PO BID, (Reported) [place]-3 Acid Ethyl Esters (Lovaza), 1 GM PO BID, (Reported) Tamsulosin HCl (Flomax), 2 MG PO BEDTIME, (Reported) Timolol Maleate/Pf (Timoptic 0.5% Ocudose Drop), 1 EACH OP BID, (Reported) Zolpidem Tartrate* (Ambien*), 10 MG PO HS, (Reported) Scheduled PRN Diphenhydramine HCl (Benadryl), 25 MG PO BEDTIME PRN for sleep, (Reported) Nitroglycerin (Nitroglycerin), 0.4 MG SL, (Reported) Miscellaneous Medications Insulin Npl/Insulin Lispro (Humalog Mix 75-25 Pen), 0 SQ, (Reported) Patient History Healthcare decision maker Resuscitation status Full Code Advanced Directive on File No Past Medical/Surgical History Past Medical/Surgical History: (1) Cerebral vascular disease (2) Diabetes mellitus, type II (3) HTN (hypertension) (4) Vitreous hemorrhage of left eye Review of Systems All Other Systems: negative except mentioned in HPI Physical Exam General Appearance: cachetic Lines, tubes and drains: peripheral, central line HEENT: normocephalic, atraumatic Neck: limited range of motion Respiratory/Chest: lungs clear, normal breath sounds Cardiovascular/Chest: normal peripheral pulses, normal rate Abdomen: normal bowel sounds, non tender Genitourinary/Rectal: normal genital exam Extremities: normal range of motion Skin Exam: normal pigmentation Neurologic: information technology project manager II-XII grossly normal Last 24 Hour Vital Signs Date Time Temp Pulse Resp B/P Pulse Ox O2 Delivery O2 Flow Rate FiO2 06/28/17 09:16 151/71 06/28/17 07:49 97.0 69 20 151/71 100 Room Air 06/28/17 07:44 74 06/28/17 06:05 98.7 58 21 109/55 100 Room Air 06/28/17 04:07 57 06/28/17 00:00 97.7 60 20 115/57 100 Room Air 06/27/17 23:58 63 06/27/17 20:15 126/57 06/27/17 19:18 98.9 57 20 167/58 18 Room Air 06/27/17 18:30 98.9 57 20 167/58 18 Room Air 06/27/17 17:30 63 20 183/55 100 Room Air 06/27/17 16:30 56 12 175/78 100 Room Air 06/27/17 15:54 53 189/66 06/27/17 15:30 53 11 189/66 100 Room Air 06/27/17 14:30 57 11 160/57 100 Room Air 06/27/17 13:30 98.7 67 18 159/73 100 Room Air 06/27/17 13:11 98.1 67 18 165/75 100 Room Air Intake and Output 06/27/17 06/28/17 19:00 07:00 Intake Total 130 ml Output Total 100 ml Balance 30 ml Intake Oral 130 ml Output Urine Total 100 ml # Voids 1 # Bowel Movements 1 Laboratory Tests Test 06/27/17 13:40 06/28/17 06:20 White Blood Count 4.7 K/UL (4.8-10.8) L 5.7 K/UL (4.8-10.8) Red Blood Count 3.78 M/UL (4.70-6.10) L 3.76 M/UL (4.70-6.10) L Hemoglobin 12.3 G/DL (14.2-18.0) L 12.2 G/DL (14.2-18.0) L Hematocrit 37.1 % (42.0-52.0) L 36.9 % (42.0-52.0) L Mean Corpuscular Volume 98 FL (80-99) 98 FL (80-99) Mean Corpuscular Hemoglobin 32.5 PG (27.0-31.0) H 32.4 PG (27.0-31.0) H Mean Corpuscular Hemoglobin Concent 33.2 G/DL (32.0-36.0) 33.0 G/DL (32.0-36.0) Red Cell Distribution Width 12.1 % (11.6-14.8) 12.0 % (11.6-14.8) Platelet Count 161 K/UL (150-450) 180 K/UL (150-450) Mean Platelet Volume 7.4 FL (6.5-10.1) 6.7 FL (6.5-10.1) Neutrophils (%) (Auto) 69.5 % (45.0-75.0) 57.8 % (45.0-75.0) Lymphocytes (%) (Auto) 22.4 % (20.0-45.0) 32.6 % (20.0-45.0) Monocytes (%) (Auto) 5.5 % (1.0-10.0) 6.4 % (1.0-10.0) Eosinophils (%) (Auto) 1.4 % (0.0-3.0) 2.1 % (0.0-3.0) Basophils (%) (Auto) 1.2 % (0.0-2.0) 1.1 % (0.0-2.0) Sodium Level 140 mEQ/L (135-145) 141 mEQ/L (135-145) Potassium Level 4.9 mEQ/L (3.4-4.9) 4.7 mEQ/L (3.4-4.9) Chloride Level 101 mEQ/L (98-107) 103 mEQ/L (98-107) Carbon Dioxide Level 27 mEQ/L (20-30) 30 mEQ/L (20-30) Anion Gap 12 (5-15) 8 (5-15) Blood Urea Nitrogen 12 mg/dL (7-23) 12 mg/dL (7-23) Creatinine 1.3 mg/dL (0.7-1.2) H 1.3 mg/dL (0.7-1.2) H Estimat Glomerular Filtration Rate mL/min (>60) mL/min (>60) Glucose Level 225 mg/dL (74-106) H 143 mg/dL (74-106) H Calcium Level 9.3 mg/dL (8.6-10.2) 9.3 mg/dL (8.6-10.2) Total Bilirubin 0.4 mg/dL (0.0-1.2) 0.5 mg/dL (0.0-1.2) Aspartate Amino Transf (AST/SGOT) 11 U/L (5-40) 10 U/L (5-40) Alanine Aminotransferase (ALT/SGPT) 9 U/L (3-41) 8 U/L (3-41) Alkaline Phosphatase 118 U/L (40-129) 77 U/L (40-129) Total Creatine Kinase 33 U/L (38-174) L Pending Creatine Kinase MB < 1.5 ng/mL (< 6.7) Creatine Kinase MB Relative Index 4.5 Troponin I < 0.30 ng/mL (<=0.30) Total Protein 6.7 g/dL (6.6-8.7) 6.2 g/dL (6.6-8.7) L Albumin 4.1 g/dL (3.5-5.2) 3.9 g/dL (3.5-5.2) Globulin 2.6 g/dL Albumin/Globulin Ratio 1.5 (1.0-2.7) Uric Acid Pending Direct Bilirubin 0.1 mg/dL (0.1-0.3) Height (Feet): 5 Height (Inches): 5.00 Weight (Pounds): 110 Medications Current Medications Medications (Trade) Dose Ordered Sig/Meera Route PRN Reason Start Time Stop Time Status Last Admin Dose Admin Acetaminophen (Tylenol) 650 mg Q4H PRN ORAL Mild Pain (Pain Scale 1-3) 06/27/17 18:00 07/27/17 17:59 Dextrose (Dextrose 50%) STAT PRN IV Hypoglycemia 06/27/17 18:00 07/27/17 17:59 Hydralazine HCl (Apresoline) 25 mg TID ORAL 06/27/17 20:15 07/27/17 20:14 06/28/17 09:16 Assessment/Plan Problem List: (1) Syncope ICD Codes: R55 - Syncope and collapse SNOMED: 462837245 Qualifiers: Qualified Codes: R55 - Syncope and collapse (2) Acute encephalopathy ICD Codes: G93.40 - Encephalopathy, unspecified SNOMED: 2804419 (3) Anemia ICD Codes: D64.9 - Anemia, unspecified SNOMED: 069854772 (4) CRD (chronic renal disease) ICD Codes: N18.9 - Chronic kidney disease, unspecified SNOMED: 168501987 (5) Vitreous hemorrhage of left eye ICD Codes: H43.12 - Vitreous hemorrhage, left eye SNOMED: 06167580 (6) Cerebral vascular disease ICD Codes: I67.9 - Cerebrovascular disease, unspecified SNOMED: 66341932 (7) HTN (hypertension) ICD Codes: I10 - Essential (primary) hypertension SNOMED: 93658606 (8) Diabetes mellitus, type II ICD Codes: E11.9 - Type 2 diabetes mellitus without complications SNOMED: 94445923 Assessment/Plan telemetry monitoring echo watch BP calorie count sliding scale dvt prophylaxis TRINY VALVERDE Jun 28, 2017 10:33
[2017-06-28 10:44] LABS: URIC ACID 6.6 mg/dL (3.0-7.5)
--- NOTE | 2017-06-28 10:45 | Diagnostic Imaging Report ---
Indication: Chest pain Comparison: 5.517 A single view chest radiograph was obtained. Findings: Cardiomediastinal appearance is within normal limits for age. Pulmonary vascularity is appropriate. The diaphragmatic contour is smooth and costophrenic angles are sharp. No pleural effusions are identified. The bones are osteopenic. Impression: No acute findings
[2017-06-28 11:42] VITALS: BP 152/66
[2017-06-28] MEDS: NovoLOG Insulin Flexpen SUBQ SCH ×3 (12:11→21:03)
[2017-06-28 15:29] VITALS: BP 145/71
--- NOTE | 2017-06-28 17:08 | Cardiology Report ---
APPROVED REPORT EXAM: Two-dimensional and M-mode echocardiogram with Doppler and color Doppler. INDICATION Left ventricular function M-Mode DIMENSIONS IVSd1.4 (0.7-1.1cm)Left Atrium (MM)3.7 (1.6-4.0cm) LVDd5.0 (3.5-5.6cm)Aortic Root2.6 (2.0-3.7cm) PWd1.2 (0.7-1.1cm)Aortic Cusp Exc.1.8 (1.5-2.0cm) LVDs3.7 (2.5-4.0cm) PWs1.6 cm Normal left ventricular chamber size, systolic function and wall motion. Left ventricular ejection fraction estimated to be 50-55%. Mild left ventricular hypertrophy. No evidence of pericardial fat or effusion. All other cardiac chamber sizes are within normal limits. Focal aortic valve sclerosis with adequate cusp excursion Thickened mitral valve leaflets with normal excursion. Mitral annulus and aortic root calcification. Pulmonic valve not well visualized. Normal tricuspid valve structure. IVC is normal in size with physiologic collapse. A color flow and spectral Doppler study was performed and revealed: No aortic regurgitation. No mitral regurgitation. Left ventricular diastolic dysfunction grade 1. Trace tricuspid regurgitation. Tricuspid systolic velocities suggests peak right ventricular systolic pressure of 24 mmHg
[2017-06-28 17:39] LABS: APPEARANCE,URINE CLEAR; KETONES,URINE NEGATIVE (NEGATIVE); LEUKOCYTE ESTERASE ,URINE NEGATIVE (NEGATIVE); NITRITE,URINE NEGATIVE (NEGATIVE); PH,URINE 6.5 (4.5-8.0); PROTEIN,URINE 1+ (NEGATIVE); UROBILINOGEN,URINE NORMAL MG/DL (0.0-1.0)
--- NOTE | 2017-06-28 17:46 | History & Physical ---
History and Physical History & Physicial Dictated for Int Med-Dr Rosenbaum no. [id number]. CHAPARRITA MARQUEZ Jun 28, 2017 17:46
--- NOTE | 2017-06-28 17:51 | Cardiology Report ---
APPROVED REPORT EKG Measurement Heart [id number] Normal sinus rhythm Incomplete right bundle branch block Left anterior fascicular block Nonspecific T wave abnormality Abnormal ECG
[2017-06-28 17:55] LABS: BACTERIA,URINE FEW /HPF; RBC,URINE 0-2 /HPF (0 - 0); WBC,URINE 0-2 /HPF (0 - 0)
[2017-06-28 20:00] VITALS: BP 132/56
[2017-06-28] MEDS: Tamsulosin 0.4mg cap ORAL SCH (21:00)
[2017-06-28] MEDS ORDERED: Zolpidem 5mg tab ORAL PRN (21:00)
--- NOTE | 2017-06-28 23:30 | History and Physical Report ---
DATE OF ADMISSION: 06/27/2017 CHIEF COMPLAINT: The patient is a 76-year-old, male, who presents with chief complaint of "I passed out." HISTORY OF PRESENT ILLNESS: Began on 06/26/2017. The patient states he was sitting on his bed. The patient got up to go to the restroom and passed out. The patient did not go to the emergency room at that time. The patient then experienced another syncopal episode on 06/27/2017. The patient dial 911. The patient was transported to [facility] emergency room. The patient was admitted for syncopal episode to rule out acute myocardial infarction versus cerebrovascular accident. PAST MEDICAL HISTORY: Significant for, 1. Hypertension. 2. Diabetes type 2. 3. History of cerebrovascular accident x3. 4. Glaucoma. 5. Hypercholesterolemia. 6. Coronary artery disease, status post myocardial infarction. PAST SURGICAL HISTORY: The patient denies. CURRENT MEDICATIONS: 1. Aspirin 81 mg one tablet p.o. daily. 2. Atenolol 50 mg one tablet p.o. daily. 3. Combigan eye drops 5 drops in both eyes twice daily. 4. Azopt 2 drops in both eyes 3 times daily. 5. Vitamin D 1000 units one tablet p.o. daily. 6. Cymbalta 30 mg one tablet p.o. daily. 7. Folic acid 1 mg one tablet p.o. daily. 8. Gabapentin 600 mg one tablet p.o. twice daily. 9. NovoLog sliding scale. 10. Metformin 500 mg one tablet p.o. daily. 11. Bystolic 10 mg one tablet p.o. daily. 12. Lovaza 1 g p.o. twice daily. 13. Flomax 0.4 mg one tablet p.o. daily. 14. Timolol one drop in each eye twice daily. 15. Ambien 10 mg one tablet p.o. at bedtime. ALLERGIES: To atorvastatin. SOCIAL HISTORY: The patient is single and lives in a house with other people. The patient denies tobacco use. The patient admits to rare alcohol use. REVIEW OF SYSTEMS: Constitutional: The patient denies weight loss or weight gain. The patient denies fevers or chills. HEENT: The patient denies ear or throat pain. The patient denies headache. Cardiovascular: The patient denies palpitations or chest pain. Chest: The patient denies wheeze or shortness of breath. Abdominal: The patient denies nausea, vomiting, diarrhea, or constipation. Genitourinary: The patient denies dysuria or increased frequency of urination. Neuromuscular: The patient complains of syncopal episode as above. The patient denies seizures or generalized weakness. PHYSICAL EXAMINATION: VITAL SIGNS: Temperature 97.0 degrees, respirations 20, pulse 60, and blood pressure 152/66. GENERAL: The patient is a well-developed, well-nourished, male, in no apparent distress. HEENT: Eyes, pupils are equal and responsive to light and accommodation. Extraocular movements are intact. NECK: Supple without lymphadenopathy. CHEST: Lungs are clear to auscultation bilaterally without wheezes or rales. CARDIOVASCULAR: Regular rhythm and rate. S1 and S2 are normal without murmurs, rubs, or gallops. ABDOMEN: Soft, nontender, and nondistended. Positive bowel sounds. No evidence of hepatosplenomegaly. Currently, no rebound or guarding noted. EXTREMITIES: Negative for clubbing, cyanosis, or edema. RECTAL: Refused. GENITAL: Refused. NEUROLOGIC: Cranial nerves II to XII are grossly intact without focal deficits. LABORATORY STUDIES: WBC 4.7, hemoglobin 10.3, hematocrit 37.1, and platelets 161,000. Sodium 140, potassium 4.9, chloride 101, CO2 27, BUN 12, creatinine 1.3, and glucose 225. Troponin is less than 0.3. ASSESSMENT: This is a 76-year-old, male. 1. Syncopal episode. 2. Diabetes type 2. 3. Hypertension. 4. Coronary artery disease. 5. Cerebrovascular disease. 6. Hypercholesterolemia. TREATMENT: 1. Syncopal episode. A Cardiology consultation was obtained with Dr. Julio Arboleda. We will follow recommendation of Cardiology. A Neurology consultation was obtained with Dr. Kiran. 2. Diabetes type 2. Continue NovoLog sliding scale. 3. Hypertension. Continue Bystolic as above. 4. Hypercholesterolemia. Continue omega-3 fatty acid as above. Xu Guerra M.D. DR: JIGAR JOB#: [id number] CC:
[2017-06-29] VITALS: BP 126/46
[2017-06-29 04:00] VITALS: BP 130/79
[2017-06-29] MEDS: NovoLOG Insulin Flexpen SUBQ SCH ×4 (06:03→20:49)
[2017-06-29 08:00] VITALS: BP 134/54
[2017-06-29 08:06] LABS: MEAN CORPUSCULAR HEMOGLOBIN 33.8 PG (27.0-31.0); MEAN CORPUSCULAR HGB CONC 34.4 G/DL (32.0-36.0); MEAN CORPUSCULAR VOLUME 98 FL (80-99); MEAN PLATELET VOLUME 6.7 FL (6.5-10.1); PLATELET COUNT 141 K/UL (150-450); RED BLOOD COUNT 3.41 M/UL (4.70-6.10)
[2017-06-29 08:20] LABS: INR 1.1 (0.9-1.1); PROTHROMBIN TIME 11.2 SEC (9.30-11.50)
[2017-06-29 08:28] LABS: ANION GAP 10 (5-15); CALCIUM 9.5 mg/dL (8.6-10.2); CARBON DIOXIDE 26 mEQ/L (20-30); CHLORIDE 104 mEQ/L (98-107); CREATININE 1.7 mg/dL (0.7-1.2); HEMOLYSIS 5; POTASSIUM 4.3 mEQ/L (3.4-4.9); SODIUM 140 mEQ/L (135-145)
[2017-06-29] MEDS ORDERED: Pneumococcal Vaccine 25mcg/0.5ml IM ONE (09:00)
[2017-06-29] MEDS: DULoxetine 30mg cap ORAL SCH (09:01)
[2017-06-29] MEDS: HydrALAZINE 25mg tab ORAL SCH ×3 (09:01→17:30)
[2017-06-29 09:26] LABS: ERYTHROCYTE SEDIMENTATION RATE 50 MM/HR (0-20)
[2017-06-29 10:05] LABS: BAND NEUTROPHILS % (MANUAL) 1 % (0-8); BASOPHILS % (MANUAL) 1 % (0-2); EOSINOPHILS % (MANUAL) 1 % (0-3); LYMPHOCYTES % (MANUAL) 32 % (20-45); NEUTROPHILS % (MANUAL) 64 % (45-75); TOTAL CELLS COUNTED 100
[2017-06-29 10:06] LABS: PLATELET ESTIMATE DECREASED; PLATELET MORPHOLOGY NORMAL
[2017-06-29 10:42] LABS: PATH BLOOD SMEAR/OMC SENT TO PATHOLOGIST
--- NOTE | 2017-06-29 11:12 | Pulmonology Progress Note ---
Assessment/Plan Problems: (1) Syncope (2) Acute encephalopathy (3) Anemia (4) CRD (chronic renal disease) (5) Vitreous hemorrhage of left eye (6) Cerebral vascular disease (7) HTN (hypertension) (8) Diabetes mellitus, type II Assessment/Plan echo reviewed awaiting cardio and neuro evaluatin anemia and renal w/u in process check renal US dvt prophylaxis Subjective ROS Limited/Unobtainable: No Constitutional: Reports: no symptoms HEENT: Repors: no symptoms Respiratory: Reports: no symptoms Allergies: Coded Allergies: ATORVASTATIN CALCIUM (Unverified Adverse Reaction, Unknown, NAUSEA, 02/22/13 ) NAUSEA Objective Last 24 Hour Vital Signs Date Time Temp Pulse Resp B/P Pulse Ox O2 Delivery O2 Flow Rate FiO2 06/29/17 09:01 134/54 06/29/17 08:00 97.9 100 21 134/54 100 Room Air 06/29/17 08:00 105 06/29/17 04:00 98.0 57 20 130/79 100 Room Air 06/29/17 03:47 75 06/29/17 00:35 62 06/29/17 00:00 98.0 59 20 126/46 100 Room Air 06/28/17 20:00 98.1 60 18 132/56 99 Room Air 06/28/17 19:33 61 06/28/17 17:15 145/71 06/28/17 16:00 61 06/28/17 15:29 97.2 60 20 145/71 100 Room Air 06/28/17 12:16 152/66 06/28/17 11:53 58 06/28/17 11:42 97.0 68 20 152/66 100 Room Air Intake and Output 06/28/17 06/29/17 19:00 07:00 Intake Total 240 ml Output Total 400 ml Balance -160 ml Intake Oral 240 ml Output Urine Total 400 ml General Appearance: WD/WN HEENT: normocephalic, atraumatic Respiratory/Chest: chest wall non-tender, lungs clear Cardiovascular: normal peripheral pulses, normal rate Abdomen: normal bowel sounds, soft, non tender Genitourinary: normal external genitalia Extremities: no cyanosis, no clubbing Skin: no rash, no ulcers Laboratory Tests 06/28/17 17:00: Urine Color Pale yellow, Urine Appearance Clear, Urine pH 6.5, Urine Specific [employer] 1.010, Urine Protein 1+H, Urine Glucose (UA) 3+H, Urine Ketones Negative , Urine Occult Blood Negative, Urine Nitrite Negative, Urine Bilirubin Negative , Urine Urobilinogen Normal, Urine Leukocyte Esterase Negative, Urine RBC 0-2H, Urine WBC 0-2, Urine Squamous Epithelial Cells None, Urine Bacteria Few, Urine Eosinophils None seen, Urine Random Sodium 66, Urine Potassium Timed 59 06/29/17 07:40: White Blood Count 4.0L, Red Blood Count 3.41L, Hemoglobin 11.5L, Hematocrit 33.4L, Mean Corpuscular Volume 98, Mean Corpuscular Hemoglobin 33.8H, Mean Corpuscular Hemoglobin Concent 34.4, Red Cell Distribution Width 12.0, Platelet Count 141L, Mean Platelet Volume 6.7, Neutrophils (%) (Auto) , Lymphocytes (%) ( Auto) , Monocytes (%) (Auto) , Eosinophils (%) (Auto) , Basophils (%) (Auto) , Differential Total Cells Counted 100, Neutrophils % (Manual) 64, Lymphocytes % ( Manual) 32, Monocytes % (Manual) 1, Eosinophils % (Manual) 1, Basophils % ( Manual) 1, Band Neutrophils 1, Platelet Estimate DecreasedL, Platelet Morphology Normal, Erythrocyte Sedimentation Rate 50H, Reticulocyte Count 1.0, Prothrombin Time 11.2, Prothromb Time International Ratio 1.1, Activated Partial Thromboplast Time 25, Sodium Level 140, Potassium Level 4.3, Chloride Level 104, Carbon Dioxide Level 26, Anion Gap 10, Blood Urea Nitrogen 24H, Creatinine 1.7H, Estimat Glomerular Filtration Rate , Glucose Level 284#H, Calcium Level 9.5, Iron Level 90, Total Iron Binding Capacity 200L, Percent Iron Saturation 45, Unsaturated Iron Binding 110L, Lactate Dehydrogenase 137, Carcinoembryonic Antigen 6.5H, Vitamin B12 Level 450, Folate [Pending] Current Medications Medications (Trade) Dose Ordered Sig/Meera Route PRN Reason Start Time Stop Time Status Last Admin Dose Admin Acetaminophen (Tylenol) 650 mg Q4H PRN ORAL Mild Pain (Pain Scale 1-3) 06/27/17 18:00 07/27/17 17:59 Dextrose (Dextrose 50%) STAT PRN IV Hypoglycemia 06/28/17 11:00 07/28/17 10:59 Duloxetine HCl (Cymbalta) 30 mg DAILY ORAL 06/29/17 09:00 07/29/17 08:59 06/29/17 09:01 Gabapentin (Neurontin) 300 mg BID ORAL 06/28/17 18:00 07/28/17 17:59 06/29/17 09:01 Hydralazine HCl (Apresoline) 25 mg TID ORAL 06/27/17 20:15 07/27/17 20:14 06/29/17 09:01 Insulin Aspart (NovoLOG) BEFORE MEALS AND HS SUBQ 06/28/17 11:30 07/28/17 11:29 06/29/17 06:03 Tamsulosin HCl (Flomax) 0.4 mg BEDTIME ORAL 06/28/17 21:00 07/28/17 20:59 06/28/17 21:00 Zolpidem Tartrate (Ambien) 5 mg BEDTIME PRN ORAL insomnia 06/28/17 21:00 07/28/17 20:59 TRINY VALVERDE Jun 29, 2017 11:12
[2017-06-29 12:00] VITALS: BP 167/80
--- NOTE | 2017-06-29 12:23 | Neurology Progress Note ---
Interim History Interim History ROS Limited/Unobtainable: No Objective Physical Exam Last Vital Signs Date Time Temp Pulse Resp B/P Pulse Ox O2 Delivery O2 Flow Rate FiO2 06/29/17 12:00 97.5 74 20 167/80 99 Room Air Laboratory Tests Test 06/28/17 17:00 06/29/17 07:40 Urine Color Pale yellow Urine Appearance Clear Urine pH 6.5 (4.5-8.0) Urine Specific [place] 1.010 (1.005-1.035) Urine Protein 1+ (NEGATIVE) H Urine Glucose (UA) 3+ (NEGATIVE) H Urine Ketones Negative (NEGATIVE) Urine Occult Blood Negative (NEGATIVE) Urine Nitrite Negative (NEGATIVE) Urine Bilirubin Negative (NEGATIVE) Urine Urobilinogen Normal MG/DL (0.0-1.0) Urine Leukocyte Esterase Negative (NEGATIVE) Urine RBC 0-2 /HPF (0 - 0) H Urine WBC 0-2 /HPF (0 - 0) Urine Squamous Epithelial Cells None /LPF (NONE/OCC) Urine Bacteria Few /HPF (NONE) Urine Eosinophils None seen Urine Random Sodium 66 mmol/L Urine Potassium Timed 59 mmol/L White Blood Count 4.0 K/UL (4.8-10.8) L Red Blood Count 3.41 M/UL (4.70-6.10) L Hemoglobin 11.5 G/DL (14.2-18.0) L Hematocrit 33.4 % (42.0-52.0) L Mean Corpuscular Volume 98 FL (80-99) Mean Corpuscular Hemoglobin 33.8 PG (27.0-31.0) H Mean Corpuscular Hemoglobin Concent 34.4 G/DL (32.0-36.0) Red Cell Distribution Width 12.0 % (11.6-14.8) Platelet Count 141 K/UL (150-450) L Mean Platelet Volume 6.7 FL (6.5-10.1) Neutrophils (%) (Auto) % (45.0-75.0) Lymphocytes (%) (Auto) % (20.0-45.0) Monocytes (%) (Auto) % (1.0-10.0) Eosinophils (%) (Auto) % (0.0-3.0) Basophils (%) (Auto) % (0.0-2.0) Differential Total Cells Counted 100 Neutrophils % (Manual) 64 % (45-75) Lymphocytes % (Manual) 32 % (20-45) Monocytes % (Manual) 1 % (1-10) Eosinophils % (Manual) 1 % (0-3) Basophils % (Manual) 1 % (0-2) Band Neutrophils 1 % (0-8) Platelet Estimate Decreased L Platelet Morphology Normal Erythrocyte Sedimentation Rate 50 MM/HR (0-20) H Reticulocyte Count 1.0 % (0.0-2.0) Prothrombin Time 11.2 SEC (9.30-11.50) Prothromb Time International Ratio 1.1 (0.9-1.1) Activated Partial Thromboplast Time 25 SEC (23-33) Sodium Level 140 mEQ/L (135-145) Potassium Level 4.3 mEQ/L (3.4-4.9) Chloride Level 104 mEQ/L (98-107) Carbon Dioxide Level 26 mEQ/L (20-30) Anion Gap 10 (5-15) Blood Urea Nitrogen 24 mg/dL (7-23) H Creatinine 1.7 mg/dL (0.7-1.2) H Estimat Glomerular Filtration Rate mL/min (>60) Glucose Level 284 mg/dL (74-106) #H Calcium Level 9.5 mg/dL (8.6-10.2) Iron Level 90 ug/dL (59-158) Total Iron Binding Capacity 200 ug/dL (250-400) L Percent Iron Saturation 45 % (15-50) Unsaturated Iron Binding 110 ug/dL (112-346) L Lactate Dehydrogenase 137 U/L (135-230) Carcinoembryonic Antigen 6.5 ng/mL H Vitamin B12 Level 450 pg/mL (211-946) Folate Pending Impression/Recommendations Problems: (1) recurrent syncope, vaso vagal type (2) Diabetic polyneuropathy (3) s/p multiple lacunar strokes, old (4) CRD (chronic renal disease) (5) HTN (hypertension) (6) Diabetes mellitus, type II Recommendations # [id number] ZACARIAS WOODWARD Jun 29, 2017 12:23
[2017-06-29 12:26] LABS: OTHERS PATHOLOGIST COMMENT
--- NOTE | 2017-06-29 13:03 | Diagnostic Imaging Report ---
Indication: SYNCOPE Technique: sagittal T1 fast spin echo, axial T1 FLAIR, axial T2 FLAIR, axial T2 FS PROPELLER, axial T2* GRE, axial diffusion weighted images. ADC and exponential ADC maps generated Comparison: 04/09/2017 Findings: No abnormal areas of restricted diffusion to suggest acute infarction. Large area of encephalomalacia involves the left posterior parietal lobe, extending also into the occipital and posterior temporal lobes. A few areas of susceptibility artifact are seen within this, indicating a likely.. No mass effect nor midline shift. There is age-related enlargement of ventricles and extra-axial CSF spaces. There is considerable periventricular deep white matter T2 abnormality. Old lacunar infarcts are seen in the left cerebellar hemisphere. Lacunar infarct is seen in the right side of the orly anteriorly.. Visualized orbits and sinuses are unremarkable. The vascular flow voids are preserved. Impression: Multiple old infarcts, as described Other chronic and age-related changes, as described Negative for acute intracranial bleed, mass effect, or infarct
--- NOTE | 2017-06-29 13:05 | Wound Care Consultation ---
Wound Assessment Wound Assessment #1: Wound Number: #1 Wound Present on Admission: Yes New Wound: No Status Change of Wound: No Wound Location Body Site Modif: left Wound Location Body Site: trochanter Wound Type: pressure ulcer Ananth Test: Does not Ananth Pressure Ulcer Stage: II Wound Thickness: Partial Thickness Wound Length: 1.0 Wound Width: 1.0 Wound Depth: 0.2 Percent of Wound [place]/Red: 100 Wound Drainage Description: Serosanguineous Wound Drainage Amount: Scant Wound Drainage Odor: None/Absent Tissue Surrounding Wound: Erythemic - noted scattered purple hyperpigmented skin possible sdti to surrounding skin. Wound General Appearance: Reddened Wound Assessment #2: Wound Number: #2 Wound Present on Admission: Yes New Wound: No Status Change of Wound: No Wound Location Body Site Modif: right Wound Location Body Site: leg - extending to dorsal aspect of foot. Wound Type: scab - scattered Naanth Test: Does not Ananth Wound Thickness: Full Thickness Wound Depth: utd Percent of Wound Bed Yellow/Wh: 50 - dry yellow scabs. Percent of Wound Black/Brown: 50 - dry yellow scabs Wound Drainage Amount: None Wound Drainage Odor: None/Absent Tissue Surrounding Wound: Intact Wound General Appearance: Necrotic, Open to air, Clean/Dry Wound Assessment #3: Wound Number: #3 Wound Present on Admission: Yes New Wound: No Status Change of Wound: No Wound Location Body Site Modif: left Wound Location Body Site: leg Wound Type: scab - scattered Ananth Test: Does not Ananth Wound Thickness: Full Thickness Wound Depth: utd Percent of Wound Bed Yellow/Wh: 50 - scattered yellow scabs Percent of Wound Black/Brown: 50 - scattered scabs Wound Drainage Amount: None Wound Drainage Odor: None/Absent Tissue Surrounding Wound: Intact Wound General Appearance: Necrotic, Open to air, Clean/Dry Wound Comment #1 Left trochanter pressure ulcer stage 2 with maroon hyperpigmented color noted scattered to surrounding tissue. #2 Right lower leg scattered full thickness scabs extending to dorsal aspect of foot. #3 Left lower leg scattered full thickness scabs. both plantar of feet assessed and cleaned skin is intact. Recommendation. - Local wound care as ordered. - Keep clean and dry. - Pressure reducing mattress. - Turn and reposition. - Optimize nutrition. - Offload affected sites. -Avoid shear and friction. -Assess and notify MD for any changes of condition to skin noted. NELY MCKEON Jun 29, 2017 13:05
--- NOTE | 2017-06-29 14:35 | Diagnostic Imaging Report ---
Indication: Abnormal renal function tests Technique: Grayscale and duplex images of the kidneys, retroperitoneum, and bladder were obtained. Comparison:None Findings: Right kidney measures 8.3 cm in length. Left kidney measures 8.7 cm in length. Both kidneys demonstrate normal echogenicity. No hydronephrosis. No focal abnormality. Normal inferior vena cava. Bladder is normal. Impression: negative.
[2017-06-29 16:00] VITALS: BP 158/69
--- NOTE | 2017-06-29 17:17 | Cardiac Electrophysiology PN ---
Subjective Subjective [id number] Dictated. HTn, Syncope. EF NL No . No SC, Carotid Doppler negative. Objective Last 24 Hour Vital Signs Date Time Temp Pulse Resp B/P Pulse Ox O2 Delivery O2 Flow Rate FiO2 06/29/17 16:00 97.2 70 21 158/69 99 Room Air 06/29/17 12:45 167/80 06/29/17 12:00 97.5 74 20 167/80 99 Room Air 06/29/17 12:00 71 06/29/17 09:01 134/54 06/29/17 08:00 97.9 100 21 134/54 100 Room Air 06/29/17 08:00 105 06/29/17 04:00 98.0 57 20 130/79 100 Room Air 06/29/17 03:47 75 06/29/17 00:35 62 06/29/17 00:00 98.0 59 20 126/46 100 Room Air 06/28/17 20:00 98.1 60 18 132/56 99 Room Air 06/28/17 19:33 61 Intake and Output 06/28/17 06/29/17 19:00 07:00 Intake Total 240 ml Output Total 400 ml Balance -160 ml Intake Oral 240 ml Output Urine Total 400 ml Laboratory Tests Test 06/29/17 07:40 White Blood Count 4.0 K/UL (4.8-10.8) L Red Blood Count 3.41 M/UL (4.70-6.10) L Hemoglobin 11.5 G/DL (14.2-18.0) L Hematocrit 33.4 % (42.0-52.0) L Mean Corpuscular Volume 98 FL (80-99) Mean Corpuscular Hemoglobin 33.8 PG (27.0-31.0) H Mean Corpuscular Hemoglobin Concent 34.4 G/DL (32.0-36.0) Red Cell Distribution Width 12.0 % (11.6-14.8) Platelet Count 141 K/UL (150-450) L Mean Platelet Volume 6.7 FL (6.5-10.1) Neutrophils (%) (Auto) % (45.0-75.0) Lymphocytes (%) (Auto) % (20.0-45.0) Monocytes (%) (Auto) % (1.0-10.0) Eosinophils (%) (Auto) % (0.0-3.0) Basophils (%) (Auto) % (0.0-2.0) Differential Total Cells Counted 100 Neutrophils % (Manual) 64 % (45-75) Lymphocytes % (Manual) 32 % (20-45) Monocytes % (Manual) 1 % (1-10) Eosinophils % (Manual) 1 % (0-3) Basophils % (Manual) 1 % (0-2) Band Neutrophils 1 % (0-8) Other Cell Type Pathologist comment Platelet Estimate Decreased L Platelet Morphology Normal Erythrocyte Sedimentation Rate 50 MM/HR (0-20) H Reticulocyte Count 1.0 % (0.0-2.0) Prothrombin Time 11.2 SEC (9.30-11.50) Prothromb Time International Ratio 1.1 (0.9-1.1) Activated Partial Thromboplast Time 25 SEC (23-33) Sodium Level 140 mEQ/L (135-145) Potassium Level 4.3 mEQ/L (3.4-4.9) Chloride Level 104 mEQ/L (98-107) Carbon Dioxide Level 26 mEQ/L (20-30) Anion Gap 10 (5-15) Blood Urea Nitrogen 24 mg/dL (7-23) H Creatinine 1.7 mg/dL (0.7-1.2) H Estimat Glomerular Filtration Rate mL/min (>60) Glucose Level 284 mg/dL (74-106) #H Calcium Level 9.5 mg/dL (8.6-10.2) Iron Level 90 ug/dL (59-158) Total Iron Binding Capacity 200 ug/dL (250-400) L Percent Iron Saturation 45 % (15-50) Unsaturated Iron Binding 110 ug/dL (112-346) L Lactate Dehydrogenase 137 U/L (135-230) Carcinoembryonic Antigen 6.5 ng/mL H Vitamin B12 Level 450 pg/mL (211-946) Folate Pending DIANE CHINCHILLA Jun 29, 2017 17:17
--- NOTE | 2017-06-29 18:37 | Internal Med Progress Note ---
Subjective Date of Service: Jun 29, 2017 Physician Name Chaparrita Marquez Attending Physician Warren Rosenbaum MD Current Medications Medications (Trade) Dose Ordered Sig/Meera Route PRN Reason Start Time Stop Time Status Last Admin Dose Admin Acetaminophen (Tylenol) 650 mg Q4H PRN ORAL Mild Pain (Pain Scale 1-3) 06/27/17 18:00 07/27/17 17:59 Dextrose (Dextrose 50%) STAT PRN IV Hypoglycemia 06/28/17 11:00 07/28/17 10:59 Duloxetine HCl (Cymbalta) 30 mg DAILY ORAL 06/29/17 09:00 07/29/17 08:59 06/29/17 09:01 Gabapentin (Neurontin) 300 mg BID ORAL 06/28/17 18:00 07/28/17 17:59 06/29/17 17:30 Heparin Sodium (Porcine) (Heparin 5000 units/ml) 5,000 units EVERY 12 HOURS SUBQ 06/29/17 21:00 07/29/17 20:59 Hydralazine HCl (Apresoline) 25 mg TID ORAL 06/27/17 20:15 07/27/17 20:14 06/29/17 17:30 Insulin Aspart (NovoLOG) BEFORE MEALS AND HS SUBQ 06/28/17 11:30 07/28/17 11:29 06/29/17 17:16 Tamsulosin HCl (Flomax) 0.4 mg BEDTIME ORAL 06/28/17 21:00 07/28/17 20:59 06/28/17 21:00 Zolpidem Tartrate (Ambien) 5 mg BEDTIME PRN ORAL insomnia 06/28/17 21:00 07/28/17 20:59 Allergies: Coded Allergies: ATORVASTATIN CALCIUM (Unverified Adverse Reaction, Unknown, NAUSEA, 02/22/13 ) NAUSEA ROS Limited/Unobtainable: No Constitutional: Reports: no symptoms HEENT: Reports: no symptoms Cardiovascular: Reports: no symptoms Respiratory: Reports: no symptoms Gastrointestinal/Abdominal: Reports: no symptoms Genitourinary: Reports: no symptoms Neurologic/Psychiatric: Reports: no symptoms Subjective 76 YO M admitted with syncope. Cover for Int Jean Pierre-Dr Rosenbaum. Objective Last Vital Signs Date Time Temp Pulse Resp B/P Pulse Ox O2 Delivery O2 Flow Rate FiO2 06/29/17 17:30 158/69 06/29/17 16:00 97.2 70 21 99 Room Air General Appearance: no apparent distress, alert, thin EENT: PERRL/EOMI, normal ENT inspection Neck: non-tender, normal alignment, supple Cardiovascular: normal peripheral pulses, normal rate, regular rhythm, no gallop/murmur, no JVD Respiratory/Chest: chest wall non-tender, lungs clear, normal breath sounds, no respiratory distress, no accessory muscle use Abdomen: normal bowel sounds, non tender, soft, no organomegaly, no mass Extremities: normal range of motion Neurologic: powder expert II-XII grossly normal Skin: normal pigmentation Laboratory Tests Test 06/29/17 07:40 White Blood Count 4.0 K/UL (4.8-10.8) L Red Blood Count 3.41 M/UL (4.70-6.10) L Hemoglobin 11.5 G/DL (14.2-18.0) L Hematocrit 33.4 % (42.0-52.0) L Mean Corpuscular Volume 98 FL (80-99) Mean Corpuscular Hemoglobin 33.8 PG (27.0-31.0) H Mean Corpuscular Hemoglobin Concent 34.4 G/DL (32.0-36.0) Red Cell Distribution Width 12.0 % (11.6-14.8) Platelet Count 141 K/UL (150-450) L Mean Platelet Volume 6.7 FL (6.5-10.1) Neutrophils (%) (Auto) % (45.0-75.0) Lymphocytes (%) (Auto) % (20.0-45.0) Monocytes (%) (Auto) % (1.0-10.0) Eosinophils (%) (Auto) % (0.0-3.0) Basophils (%) (Auto) % (0.0-2.0) Differential Total Cells Counted 100 Neutrophils % (Manual) 64 % (45-75) Lymphocytes % (Manual) 32 % (20-45) Monocytes % (Manual) 1 % (1-10) Eosinophils % (Manual) 1 % (0-3) Basophils % (Manual) 1 % (0-2) Band Neutrophils 1 % (0-8) Other Cell Type Pathologist comment Platelet Estimate Decreased L Platelet Morphology Normal Erythrocyte Sedimentation Rate 50 MM/HR (0-20) H Reticulocyte Count 1.0 % (0.0-2.0) Prothrombin Time 11.2 SEC (9.30-11.50) Prothromb Time International Ratio 1.1 (0.9-1.1) Activated Partial Thromboplast Time 25 SEC (23-33) Sodium Level 140 mEQ/L (135-145) Potassium Level 4.3 mEQ/L (3.4-4.9) Chloride Level 104 mEQ/L (98-107) Carbon Dioxide Level 26 mEQ/L (20-30) Anion Gap 10 (5-15) Blood Urea Nitrogen 24 mg/dL (7-23) H Creatinine 1.7 mg/dL (0.7-1.2) H Estimat Glomerular Filtration Rate mL/min (>60) Glucose Level 284 mg/dL (74-106) #H Calcium Level 9.5 mg/dL (8.6-10.2) Iron Level 90 ug/dL (59-158) Total Iron Binding Capacity 200 ug/dL (250-400) L Percent Iron Saturation 45 % (15-50) Unsaturated Iron Binding 110 ug/dL (112-346) L Lactate Dehydrogenase 137 U/L (135-230) Carcinoembryonic Antigen 6.5 ng/mL H Vitamin B12 Level 450 pg/mL (211-946) Folate Pending Intake and Output 06/28/17 06/29/17 19:00 07:00 Intake Total 240 ml Output Total 400 ml Balance -160 ml Intake Oral 240 ml Output Urine Total 400 ml Assessment/Plan Problem List: (1) CAD (coronary artery disease) (2) s/p multiple lacunar strokes, old (3) Syncope Assessment & Plan: Vasovagal-see neuro note. (4) Diabetes mellitus, type II Assessment & Plan: Continue novolog sliding scale. (5) Glaucoma (6) Renal failure (7) HTN (hypertension) Assessment & Plan: Cont hydralazine (8) CRD (chronic renal disease) (9) Cerebral vascular disease Assessment & Plan: H/O of old lacunar strokes-see MRI (10) Hypercholesteremia Status: progressing Assessment/Plan Discharge planning CHAPARRITA MARQUEZ Jun 29, 2017 18:37
--- NOTE | 2017-06-29 19:47 | Consultation ---
History of Present Illness General Chief Complaint: Syncope Referring physician: Dr. Guerra Reason for Consultation: inpatient management Present Illness HPI 76 year of male with hx of DM and HTN, with recent hospitalization for uncontrolled Diabetes, presented to ER for 2x episode of syncope on way to bathroom and again after BM c/o weakness, He is admitted to telemetry for further work up. the pt is depressed mild. on cymbolta Allergies: Coded Allergies: ATORVASTATIN CALCIUM (Unverified Adverse Reaction, Unknown, NAUSEA, 02/22/13 ) NAUSEA Medication History Scheduled Aspirin* (Aspir 81*), 81 MG PO DAILY, (Reported) Atenolol* (Tenormin*), 20 MG ORAL DAILY, (Reported) Brimonidine Tartrate/Timolol (Combigan Eye Drops), 5 BOTH EYES BID, (Reported) Brinzolamide (Azopt), BOTH EYES TID, (Reported) Cholecalciferol (Vitamin D3)* (Vitamin D*), 5,000 UNITS PO DAILY, (Reported) Duloxetine Hcl* (Cymbalta*), 30 MG ORAL DAILY, (Reported) Folic Acid/Mv,Fe,Other Min (Centrum Multivitamin Tab Chew), 1 EACH PO DAILY, ( Reported) Gabapentin* (Gabapentin*), 300 MG PO BID, (Reported) Insulin Aspart* (Novolog*), 0 SUBQ .SLIDING SCALE, (Reported) Metformin Hcl (Metformin Hcl Er), Unknown Dose ORAL DAILY, (Reported) Nebivolol Hcl (Bystolic*), 20 MG PO DAILY, (Reported) Magnolia-3 Acid Ethyl Esters (Lovaza), 1 GM PO BID, (Reported) Magnolia-3 Acid Ethyl Esters (Lovaza), 1 GM PO BID, (Reported) Tamsulosin HCl (Flomax), 2 MG PO BEDTIME, (Reported) Timolol Maleate/Pf (Timoptic 0.5% Ocudose Drop), 1 EACH OP BID, (Reported) Zolpidem Tartrate* (Ambien*), 10 MG PO HS, (Reported) Scheduled PRN Diphenhydramine HCl (Benadryl), 25 MG PO BEDTIME PRN for sleep, (Reported) Nitroglycerin (Nitroglycerin), 0.4 MG SL, (Reported) Miscellaneous Medications Insulin Npl/Insulin Lispro (Humalog Mix 75-25 Pen), 0 SQ, (Reported) Patient History History Provided By: Patient, Medical Record, PMD Healthcare decision maker Resuscitation status Full Code Advanced Directive on File No Past Medical/Surgical History Past Medical/Surgical History: (1) Glaucoma (2) SOB (shortness of breath) on exertion (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 (4) Diabetes mellitus, type II (5) HTN (hypertension) (6) Cerebral vascular disease (7) Vitreous hemorrhage of left eye (8) Anemia (9) Syncope (10) CRD (chronic renal disease) (11) Acute encephalopathy (12) Diabetic polyneuropathy (13) s/p multiple lacunar strokes, old (14) recurrent syncope, vaso vagal type (15) CAD (coronary artery disease) (16) Hypercholesteremia (17) Renal failure (18) Glaucoma Review of Systems Constitutional: Reports: weakness Psychiatric: Reports: anxiety, depressed feelings, emotional problems, prior hx Physical Exam General Appearance: no apparent distress, alert Neurologic: alert, oriented x 3, responsive, depressed affect Last 24 Hour Vital Signs Date Time Temp Pulse Resp B/P Pulse Ox O2 Delivery O2 Flow Rate FiO2 06/29/17 17:30 158/69 06/29/17 16:00 97.2 70 21 158/69 99 Room Air 06/29/17 16:00 74 06/29/17 12:45 167/80 06/29/17 12:00 97.5 74 20 167/80 99 Room Air 06/29/17 12:00 71 06/29/17 09:01 134/54 06/29/17 08:00 97.9 100 21 134/54 100 Room Air 06/29/17 08:00 105 06/29/17 04:00 98.0 57 20 130/79 100 Room Air 06/29/17 03:47 75 06/29/17 00:35 62 06/29/17 00:00 98.0 59 20 126/46 100 Room Air 06/28/17 20:00 98.1 60 18 132/56 99 Room Air Intake and Output 06/28/17 06/29/17 19:00 07:00 Intake Total 240 ml Output Total 400 ml Balance -160 ml Intake Oral 240 ml Output Urine Total 400 ml Laboratory Tests Test 06/29/17 07:40 White Blood Count 4.0 K/UL (4.8-10.8) L Red Blood Count 3.41 M/UL (4.70-6.10) L Hemoglobin 11.5 G/DL (14.2-18.0) L Hematocrit 33.4 % (42.0-52.0) L Mean Corpuscular Volume 98 FL (80-99) Mean Corpuscular Hemoglobin 33.8 PG (27.0-31.0) H Mean Corpuscular Hemoglobin Concent 34.4 G/DL (32.0-36.0) Red Cell Distribution Width 12.0 % (11.6-14.8) Platelet Count 141 K/UL (150-450) L Mean Platelet Volume 6.7 FL (6.5-10.1) Neutrophils (%) (Auto) % (45.0-75.0) Lymphocytes (%) (Auto) % (20.0-45.0) Monocytes (%) (Auto) % (1.0-10.0) Eosinophils (%) (Auto) % (0.0-3.0) Basophils (%) (Auto) % (0.0-2.0) Differential Total Cells Counted 100 Neutrophils % (Manual) 64 % (45-75) Lymphocytes % (Manual) 32 % (20-45) Monocytes % (Manual) 1 % (1-10) Eosinophils % (Manual) 1 % (0-3) Basophils % (Manual) 1 % (0-2) Band Neutrophils 1 % (0-8) Other Cell Type Pathologist comment Platelet Estimate Decreased L Platelet Morphology Normal Erythrocyte Sedimentation Rate 50 MM/HR (0-20) H Reticulocyte Count 1.0 % (0.0-2.0) Prothrombin Time 11.2 SEC (9.30-11.50) Prothromb Time International Ratio 1.1 (0.9-1.1) Activated Partial Thromboplast Time 25 SEC (23-33) Sodium Level 140 mEQ/L (135-145) Potassium Level 4.3 mEQ/L (3.4-4.9) Chloride Level 104 mEQ/L (98-107) Carbon Dioxide Level 26 mEQ/L (20-30) Anion Gap 10 (5-15) Blood Urea Nitrogen 24 mg/dL (7-23) H Creatinine 1.7 mg/dL (0.7-1.2) H Estimat Glomerular Filtration Rate mL/min (>60) Glucose Level 284 mg/dL (74-106) #H Calcium Level 9.5 mg/dL (8.6-10.2) Iron Level 90 ug/dL (59-158) Total Iron Binding Capacity 200 ug/dL (250-400) L Percent Iron Saturation 45 % (15-50) Unsaturated Iron Binding 110 ug/dL (112-346) L Lactate Dehydrogenase 137 U/L (135-230) Carcinoembryonic Antigen 6.5 ng/mL H Vitamin B12 Level 450 pg/mL (211-946) Folate Pending Height (Feet): 5 Height (Inches): 5.00 Weight (Pounds): 110 Medications Current Medications Medications (Trade) Dose Ordered Sig/Meera Route PRN Reason Start Time Stop Time Status Last Admin Dose Admin Acetaminophen (Tylenol) 650 mg Q4H PRN ORAL Mild Pain (Pain Scale 1-3) 06/27/17 18:00 07/27/17 17:59 Dextrose (Dextrose 50%) STAT PRN IV Hypoglycemia 06/28/17 11:00 07/28/17 10:59 Duloxetine HCl (Cymbalta) 30 mg DAILY ORAL 06/29/17 09:00 07/29/17 08:59 06/29/17 09:01 Gabapentin (Neurontin) 300 mg BID ORAL 06/28/17 18:00 07/28/17 17:59 06/29/17 17:30 Heparin Sodium (Porcine) (Heparin 5000 units/ml) 5,000 units EVERY 12 HOURS SUBQ 06/29/17 21:00 07/29/17 20:59 Hydralazine HCl (Apresoline) 25 mg TID ORAL 06/27/17 20:15 07/27/17 20:14 06/29/17 17:30 Insulin Aspart (NovoLOG) BEFORE MEALS AND HS SUBQ 06/28/17 11:30 07/28/17 11:29 06/29/17 17:16 Tamsulosin HCl (Flomax) 0.4 mg BEDTIME ORAL 06/28/17 21:00 07/28/17 20:59 06/28/17 21:00 Zolpidem Tartrate (Ambien) 5 mg BEDTIME PRN ORAL insomnia 06/28/17 21:00 07/28/17 20:59 Assessment/Plan Status: stable, progressing Assessment/Plan mdd -cymbolta 30mg qam Farhadi,Pantea M.D. Jun 29, 2017 19:47
[2017-06-29 20:00] VITALS: BP 137/70
[2017-06-29] MEDS: Tamsulosin 0.4mg cap ORAL SCH (20:50)
[2017-06-29] MEDS: Heparin 5000 units/ml inj SUBQ SCH (20:50)
--- NOTE | 2017-06-29 22:00 | Consultation ---
DATE OF CONSULTATION: 06/29/2017 CARDIOLOGY CONSULTATION REFERRING PHYSICIAN: Warren Rosenbaum M.D. REASON FOR CONSULTATION: Evaluation of hypertension and syncope. HISTORY OF PRESENT ILLNESS: The patient is a 76-year-old, gentleman with history of hypertension and diabetes as well as history of prior stroke presented to the emergency room with two episodes of syncope when he was going on the way to his bathroom. The patient also had another episode of syncope while he was in the hospital. The patient was admitted to telemetry and a Cardiology consultation was obtained for further evaluation and management. The patient denies any chest pain, palpitation, shortness of breath, prior myocardial infarction, or known coronary artery disease. PAST MEDICAL HISTORY: 1. Hypertension. 2. Diabetes. 3. History of cerebrovascular accident. ALLERGIES: He is allergic to Lipitor. MEDICATIONS: Per reconciliation were reviewed. SOCIAL HISTORY: He lives at home. Does not smoke or drink alcohol. FAMILY HISTORY: Noncontributory. REVIEW OF SYSTEMS: Review of systems was thoroughly performed and was negative other than what is mentioned in history of present illness. PHYSICAL EXAMINATION: VITAL SIGNS: Show blood pressure of 158/69, pulse 70, respirations 18, and he is afebrile. HEAD AND NECK: Showed no JVD. LUNGS: Clear. CARDIOVASCULAR: Shows regular S1 and S2 with no gallop. ABDOMEN: Soft. EXTREMITIES: No pitting edema. LABORATORY AND DIAGNOSTIC DATA: His EKG shows sinus rhythm with incomplete right bundle-branch block and left anterior fascicular block. White count of 4, hemoglobin 11.5, hematocrit 33.4, and platelet count is 141,000. Sodium 140, potassium 4.3, BUN 24, creatinine 1.7, and glucose of 284. INR is 1.1. ASSESSMENT AND PLAN: 1. Syncope, etiology is not clear at this time. The patient's echocardiogram showed normal left ventricular systolic function. The patient's troponin is negative. We will repeat serial cardiac enzymes. He did not have aortic stenosis either. We will watch the patient on telemetry. Neurology evaluation is also ongoing per Dr. Kiran. 2. History of prior cerebrovascular accident. Further evaluation by Dr. Kiran. 3. Hypertension. Blood pressure is stable, currently on hydralazine 25 mg t.i.d. and avoid beta-cara at this time. Thank you very much, Dr. Rosenbaum, for allowing me to participate in the care of this patient. Please do not hesitate to contact me for any questions regarding my evaluation. Julio Arboleda M.D. DR: ISHMAEL JOB#: [id number] CC:
--- NOTE | 2017-06-29 23:45 | Consultation ---
DATE OF CONSULTATION: 06/29/2017 NEUROLOGICAL CONSULTATION CONSULTING PHYSICIAN: Riki Kiran M.D. REQUESTING PHYSICIAN: Warren Rosenbaum M.D. HISTORY OF PRESENT ILLNESS: This 76 years old man seen in neurological consultation to evaluate the episodes of transient loss of consciousness. According to the patient, last week, the patient was seen by his family physician, who changed his treatments. On Thursday morning, he was walking when he started to feel "funny." He noticed blood in his urine that is with bowel movement. He lost consciousness and fell to the ground. He was able to slowly crawl away to bed. Later as he went to the bathroom, he had another episode of transient loss of consciousness. At that point, he was able to notify 911 and paramedics brought him to this facility. His initial vital signs included blood pressure 136/85. He is afebrile. Heart rate is down to 53. His echocardiogram revealed normal ejection fraction. EKG, normal sinus rhythm, right bundle-branch block, left ventricular hypertrophy, no PVC, no ectopy. Chest x-ray, no acute cardiopulmonary disease. His previous evaluation at this hospital was in March of this year. CT scan of the brain done at that time revealed no evidence of acute abnormalities. There was bilateral cerebral periventricular deep white matter low attenuation, nonspecific chronic microvascular ischemic disease, old infarcts in bilateral cerebellar hemispheres and right parietal lobe, and generalized atrophy. The patient was treated for diabetes, hypertension, hyperlipidemia, legal blindness due to glaucoma. His carotid duplex with no hemodynamically significant lesion noted. There was evidence of acute renal failure, felt to be a result of acute tubular necrosis on the top of chronic kidney disease due to diabetic nephropathy and hypertensive nephrosclerosis. The patient informs me that he had at least 3 strokes within the last few years that left him with gait abnormality and visual problems. Following current admission, lab work was obtained revealing mild anemia, hemoglobin 12.3, hematocrit 37.1, and sedimentation rate of 50. Coagulation panel was normal. Chemistry panel included creatinine 1.3 and blood sugar 225. Elevated CEA of 6.5, but normal B12. PAST MEDICAL HISTORY: 1. Diabetes type 2, diabetic polyneuropathy, diabetic retinopathy, 2. Status post vitreous hemorrhage in the left eye, legal blindness. 3. Ischemic cerebrovascular disease, multiple lacunar strokes, old. 4. Hypertension. 5. Degenerative joint disease. 6. Hyperlipidemia. TREATMENT PRIOR TO ADMISSION: Included aspirin, atenolol, eyedrops, vitamin D, Benadryl p.r.n., Cymbalta 30 mg daily, folate, gabapentin 300 mg twice a day, insulin, metformin, Bystolic, nitroglycerin, omega-3, tamsulosin, and zolpidem. ALLERGIES: Atorvastatin and calcium. FAMILY HISTORY: Noncontributory. SOCIAL HISTORY: Lives in a small apartment alone. Denies alcohol or drug abuse. Nonsmoker. REVIEW OF SYMPTOMS: Episodes of transient loss of consciousness without associated symptomatology. The patient indicated that he drinks up to 1 gallon of water daily to prevent dehydration. He denies headache or dizziness. No chest pain. No palpitations. No respiratory difficulties. Denies abdominal pain or discomfort. No urinary incontinence. The patient is ambulatory, but using cane or walker due to lack of balance. PHYSICAL EXAMINATION: GENERAL: A well-developed, ill-appearing man, not in acute distress. VITAL SIGNS: Vital signs now are stable. Blood pressure 167/80, temperature 97.1. HEENT: Head, normocephalic. There is no evidence of trauma. Eyes, ears, and throat are clear. NECK: Supple. No meningeal signs. MUSCULOSKELETAL: No deformities. Peripheral pulses 1+ symmetric. NEUROLOGIC: Mental Status: Alert and oriented x3 with no evidence of aphasia or apraxia. He is somewhat forgetful and provides with incomplete history, but remained coherent. Follows command. CRANIAL NERVES: CRANIAL NERVE II: Pupils both responding to light and accommodation. Visual acuity is sharply reduced on the left. CRANIAL NERVE V: Normal corneal responses. CRANIAL NERVE VII: No gross asymmetry. Edentulous. CRANIAL NERVE VIII: Normal hearing. CRANIAL NERVE IX THROUGH XII: Within normal limits. MOTOR EXAMINATION: Able to lift arms and legs against the gravity. Reduced hand finance admin bilaterally. Deep tendon reflexes depressed. Biceps, triceps, brachioradialis, ankle jerks, and plantar responses flexor. No pathological responses. SENSORY EXAM: Withdrawing to pin stimulation both upper and lower extremities. Gait not tested, but reported very wobbly required assistance. IMPRESSION: 1. This is a 76 years old man with multiple stroke risk factors, now presenting with recurrent syncope probably vasovagal in origin. No evidence of transient ischemic attack or seizure activities noted. 2. Status post multiple lacunar strokes. 3. Ischemia cerebrovascular disease with multiple lacunar strokes. 4. Abnormal gait, multifactorial including previous strokes and presence of diabetic neuropathy. 5. Diabetes type 2. 6. Hypertension. 7. Hyperlipidemia. RECOMMENDATION: 1. The patient is to continue with aspirin and statins, recheck orthostatic blood pressure, have cardiac monitoring to rule out cardiac arrhythmia. 2. Get a steam plant operator to establish proper diet (the patient is noncompliant). 3. Consider placement for more safe environment. Thank you for allowing me to see this interesting patient in neurological consultation. Riki Fam Kiran DR: OLIVIA JOB#: [id number] CC:
[2017-06-30] VITALS: BP 124/65
[2017-06-30 04:00] VITALS: BP 124/68
[2017-06-30] MEDS: NovoLOG Insulin Flexpen SUBQ SCH ×2 (06:30→11:34)
[2017-06-30 07:48] VITALS: BP 128/59
[2017-06-30] MEDS: DULoxetine 30mg cap ORAL SCH (09:11)
[2017-06-30] MEDS: HydrALAZINE 25mg tab ORAL SCH ×2 (09:12→12:44)
[2017-06-30] MEDS: Heparin 5000 units/ml inj SUBQ SCH (09:13)
[2017-06-30 09:45] LABS: EOSINOPHILS % (AUTO) 2.1 % (0.0-3.0); LYMPHOCYTES % (AUTO) 31.4 % (20.0-45.0); MEAN CORPUSCULAR HEMOGLOBIN 33.5 PG (27.0-31.0); MEAN CORPUSCULAR HGB CONC 34.2 G/DL (32.0-36.0); MEAN CORPUSCULAR VOLUME 98 FL (80-99); MEAN PLATELET VOLUME 6.5 FL (6.5-10.1); MONOCYTES % (AUTO) 5.4 % (1.0-10.0); NEUTROPHILS % (AUTO) 60.1 % (45.0-75.0); PLATELET COUNT 153 K/UL (150-450); RED BLOOD COUNT 3.56 M/UL (4.70-6.10); RED CELL DISTRIBUTION WIDTH 12.2 % (11.6-14.8); WHITE BLOOD COUNT 4.8 K/UL (4.8-10.8)
[2017-06-30 09:58] LABS: ALANINE AMINOTRANSFERASE 15 U/L (3-41); ALBUMIN/GLOBULIN RATIO 1.5 (1.0-2.7); ANION GAP 12 (5-15); ASPARTATE AMINO TRANSFERASE 14 U/L (5-40); CALCIUM 9.3 mg/dL (8.6-10.2); CARBON DIOXIDE 26 mEQ/L (20-30); CHLORIDE 102 mEQ/L (98-107); CREATININE 1.4 mg/dL (0.7-1.2); CRP QUANT < 0.3 mg/dL (< 0.5); HEMOLYSIS 4; MAGNESIUM 1.8 mg/dL (1.7-2.5); PHOSPHORUS 4.1 mg/dL (2.5-4.8); POTASSIUM 4.6 mEQ/L (3.4-4.9); SODIUM 140 mEQ/L (135-145); TOTAL PROTEIN 6.4 g/dL (6.6-8.7)
[2017-06-30 10:14] LABS: TROPONIN I < 0.30 ng/mL (<=0.30)
[2017-06-30 11:28] LABS: ERYTHROCYTE SEDIMENTATION RATE 54 MM/HR (0-20)
[2017-06-30 12:00] VITALS: BP 150/73
[2017-06-30] MEDS ORDERED: HYDRALAZINE HCL25 M1 ORAL (12:13)
[2017-06-30] MEDS ORDERED: NOVOLOG100 UNITS1 SUBQ (12:13)
[2017-06-30 12:44] VITALS: BP 150/73
--- NOTE | 2017-06-30 12:57 | Pulmonology Progress Note ---
Assessment/Plan Problems: (1) Syncope (2) Acute encephalopathy (3) Anemia (4) CRD (chronic renal disease) (5) Vitreous hemorrhage of left eye (6) Cerebral vascular disease (7) HTN (hypertension) (8) Diabetes mellitus, type II Assessment/Plan echo reviewed cardio and neuro evaluation appreciated anemia and renal w/u in process dvt prophylaxis dc to snif today Subjective ROS Limited/Unobtainable: No Constitutional: Reports: no symptoms Allergies: Coded Allergies: ATORVASTATIN CALCIUM (Unverified Adverse Reaction, Unknown, NAUSEA, 02/22/13 ) NAUSEA Objective Last 24 Hour Vital Signs Date Time Temp Pulse Resp B/P Pulse Ox O2 Delivery O2 Flow Rate FiO2 06/30/17 12:44 150/73 06/30/17 12:00 90 06/30/17 09:12 128/59 06/30/17 09:05 67 06/30/17 09:00 66 06/30/17 08:00 67 06/30/17 07:48 97.2 66 20 128/59 100 Room Air 06/30/17 04:00 84 06/30/17 04:00 97.7 81 20 124/68 100 Room Air 06/30/17 00:00 97.7 88 20 124/65 99 Room Air 06/30/17 00:00 107 06/29/17 21:00 88 92 06/29/17 20:00 110 06/29/17 20:00 97.7 86 16 137/70 99 Room Air 06/29/17 17:30 158/69 06/29/17 16:00 97.2 70 21 158/69 99 Room Air 06/29/17 16:00 74 Intake and Output 06/29/17 06/30/17 19:00 07:00 Intake Total 500 ml Output Total 600 ml Balance 500 ml -600 ml Intake Oral 500 ml Output Urine Total 600 ml # Voids 3 6 General Appearance: WD/WN HEENT: normocephalic, PERRL Respiratory/Chest: lungs clear Cardiovascular: normal peripheral pulses, regular rhythm Abdomen: normal bowel sounds, no scars Genitourinary: normal external genitalia Skin: no rash Laboratory Tests 06/30/17 09:30: White Blood Count 4.8, Red Blood Count 3.56L, Hemoglobin 11.9L, Hematocrit 34.8L , Mean Corpuscular Volume 98, Mean Corpuscular Hemoglobin 33.5H, Mean Corpuscular Hemoglobin Concent 34.2, Red Cell Distribution Width 12.2, Platelet Count 153, Mean Platelet Volume 6.5, Neutrophils (%) (Auto) 60.1, Lymphocytes (% ) (Auto) 31.4, Monocytes (%) (Auto) 5.4, Eosinophils (%) (Auto) 2.1, Basophils ( %) (Auto) 1.0, Erythrocyte Sedimentation Rate 54H, Sodium Level 140, Potassium Level 4.6, Chloride Level 102, Carbon Dioxide Level 26, Anion Gap 12, Blood Urea Nitrogen 28H, Creatinine 1.4H, Estimat Glomerular Filtration Rate , Glucose Level 180#H, Calcium Level 9.3, Phosphorus Level 4.1, Magnesium Level 1.8, Total Bilirubin 0.4, Aspartate Amino Transf (AST/SGOT) 14, Alanine Aminotransferase (ALT/SGPT) 15, Alkaline Phosphatase 90, Troponin I < 0.30, C- Reactive Protein, Quantitative < 0.3, Pro-B-Type Natriuretic Peptide 457H, Total Protein 6.4L, Albumin 3.9, Globulin 2.5, Albumin/Globulin Ratio 1.5 Current Medications Medications (Trade) Dose Ordered Sig/Meera Route PRN Reason Start Time Stop Time Status Last Admin Dose Admin Acetaminophen (Tylenol) 650 mg Q4H PRN ORAL Mild Pain (Pain Scale 1-3) 06/27/17 18:00 07/27/17 17:59 Dextrose (Dextrose 50%) STAT PRN IV Hypoglycemia 06/28/17 11:00 07/28/17 10:59 Duloxetine HCl (Cymbalta) 30 mg DAILY ORAL 06/29/17 09:00 07/29/17 08:59 06/30/17 09:11 Gabapentin (Neurontin) 300 mg BID ORAL 06/28/17 18:00 07/28/17 17:59 06/30/17 09:11 Heparin Sodium (Porcine) (Heparin 5000 units/ml) 5,000 units EVERY 12 HOURS SUBQ 06/29/17 21:00 07/29/17 20:59 06/30/17 09:13 Hydralazine HCl (Apresoline) 25 mg TID ORAL 06/27/17 20:15 07/27/17 20:14 06/30/17 12:44 Insulin Aspart (NovoLOG) BEFORE MEALS AND HS SUBQ 06/28/17 11:30 07/28/17 11:29 06/30/17 11:34 Tamsulosin HCl (Flomax) 0.4 mg BEDTIME ORAL 06/28/17 21:00 07/28/17 20:59 06/29/17 20:50 Zolpidem Tartrate (Ambien) 5 mg BEDTIME PRN ORAL insomnia 06/28/17 21:00 07/28/17 20:59 TRINY VALVERDE Jun 30, 2017 12:56
--- NOTE | 2017-06-30 13:22 | Physician Query ---
PLEASE COMPLETE THE DOCUMENT BEFORE SIGNING Dear Dr. Xu Guerra Date: 06/30/2017 [employer] Name: _[facility] [employer] [facility] Phone #[phone] Exercise your independent professional judgment when responding to query. Question asked do not imply a particular answer is desired/expected Clinical Documentation States: "Renal Failure" documented in the Assessment of Dr. Xu Guerra. Clinical Findings Show: Creatinine 1.3,1.3, 1.7,1.4 BUN 12, 12, 24, 28 Please Clarify the type of renal failure below: Etiology [X] ARF w/ Tubular Necrosis [] ARF w/ Cortical Necrosis [] ARF w/ Medullary Necrosis [] Acute Renal Failure (unspecified) [] Other: If Chronic, please specify the stage: [X] CKD Stage 1 [] CKD Stage 2 [] CKD Stage 3 [] CKD Stage 4 [] CKD Stage 5 [] ESRD [] Not applicable Condition Present on Admission: [X] Yes [] No []Clinically Undeterminable Please also document in your Progress Notes and/or Discharge Summary and indicate if the condition was present on admission. Xu Guerra MD Time/Date [facility]
[2017-06-30] MEDS ORDERED: D5 1/2NS 1000ml IV ONE (14:56)
--- NOTE | 2017-06-30 15:34 | General Progress Note ---
Assessment/Plan Status: stable, progressing Subjective Constitutional: Reports: malaise, weakness Neurologic/Psychiatric: Reports: anxiety, depressed, emotional problems Allergies: Coded Allergies: ATORVASTATIN CALCIUM (Unverified Adverse Reaction, Unknown, NAUSEA, 02/22/13 ) NAUSEA All Systems: reviewed and negative except above Objective Last 24 Hour Vital Signs Date Time Temp Pulse Resp B/P Pulse Ox O2 Delivery O2 Flow Rate FiO2 06/30/17 12:44 150/73 06/30/17 12:00 90 06/30/17 12:00 97.0 119 20 150/73 100 Room Air 06/30/17 09:12 128/59 06/30/17 09:05 67 06/30/17 09:00 66 06/30/17 08:00 67 06/30/17 07:48 97.2 66 20 128/59 100 Room Air 06/30/17 04:00 84 06/30/17 04:00 97.7 81 20 124/68 100 Room Air 06/30/17 00:00 97.7 88 20 124/65 99 Room Air 06/30/17 00:00 107 06/29/17 21:00 88 92 06/29/17 20:00 110 06/29/17 20:00 97.7 86 16 137/70 99 Room Air 06/29/17 17:30 158/69 06/29/17 16:00 97.2 70 21 158/69 99 Room Air 06/29/17 16:00 74 Intake and Output 06/29/17 06/30/17 19:00 07:00 Intake Total 500 ml Output Total 600 ml Balance 500 ml -600 ml Intake Oral 500 ml Output Urine Total 600 ml # Voids 3 6 Laboratory Tests 06/30/17 09:30: White Blood Count 4.8, Red Blood Count 3.56L, Hemoglobin 11.9L, Hematocrit 34.8L , Mean Corpuscular Volume 98, Mean Corpuscular Hemoglobin 33.5H, Mean Corpuscular Hemoglobin Concent 34.2, Red Cell Distribution Width 12.2, Platelet Count 153, Mean Platelet Volume 6.5, Neutrophils (%) (Auto) 60.1, Lymphocytes (% ) (Auto) 31.4, Monocytes (%) (Auto) 5.4, Eosinophils (%) (Auto) 2.1, Basophils ( %) (Auto) 1.0, Erythrocyte Sedimentation Rate 54H, Sodium Level 140, Potassium Level 4.6, Chloride Level 102, Carbon Dioxide Level 26, Anion Gap 12, Blood Urea Nitrogen 28H, Creatinine 1.4H, Estimat Glomerular Filtration Rate , Glucose Level 180#H, Calcium Level 9.3, Phosphorus Level 4.1, Magnesium Level 1.8, Total Bilirubin 0.4, Aspartate Amino Transf (AST/SGOT) 14, Alanine Aminotransferase (ALT/SGPT) 15, Alkaline Phosphatase 90, Troponin I < 0.30, C- Reactive Protein, Quantitative < 0.3, Pro-B-Type Natriuretic Peptide 457H, Total Protein 6.4L, Albumin 3.9, Globulin 2.5, Albumin/Globulin Ratio 1.5 Height (Feet): 5 Height (Inches): 5.00 Weight (Pounds): 110 General Appearance: no apparent distress, alert Neurologic: alert, disoriented, depressed affect Navin Ibarra M.D. Jun 30, 2017 15:34
--- NOTE | 2017-07-02 12:57 | Discharge Summary ---
Discharge Summary Hospital Course Date of Admission Jun 27, 2017 at 14:51 Date of Discharge Jun 30, 2017 at 14:57 Admitting Diagnosis SYNCOPE HPI Jerry Sadler is a 76 year old male who was admitted on Jun 27, 2017 at 14:51 for Syncope Hospital Course [id number] Discharge Discharge Disposition Patient was discharged to SNF/Subacute Facility(03) Discharge Diagnoses: Zulema Graf NP Jul 02, 2017 12:57
--- NOTE | 2017-07-03 04:48 | Discharge Summary 2 SIG ---
DATE OF ADMISSION: 06/27/2017 DATE OF DISCHARGE: 06/30/2017 ADMITTING DOCTOR: Warren Rosenbaum M.D. CONSULTANTS: 1. Maximiliano Arce M.D. 2. Navin Ibarra M.D. 3. Riki Kiran M.D. 4. Julio Arboleda M.D. BRIEF HOSPITAL COURSE: The patient is a 76-year-old male, who presented to ED because, "I passed out." Symptoms began 06/26/2017. He was sitting on the bed, got up to the restroom, and passed out. He did not go to emergency department at that time. He did experience another syncopal episode on the following day, 06/27/2017. He called 911 and was transported to [facility] ED. On evaluation, troponin was negative. EKG done showed normal sinus rhythm with right bundle-branch block and left ventricular hypertrophy. Chest x-ray showed no consolidation or effusion. No pneumothorax. No cardiopulmonary disease. He was then admitted to telemetry for evaluation of syncopal episode and underwent neurologic and cardiac evaluation. Echocardiogram done showed normal left ventricular systolic function. No aortic stenosis noted and cardiac enzymes have been negative. Blood pressure was stable on hydralazine 25 mg t.i.d. He underwent neurologic evaluation. Recurrent syncope probably vasovagal in origin. There was no evidence of transient ischemic attack or seizure activities noted. Brain MRI done showed multiple old infarcts with chronic age-related changes. No acute intracranial bleed, mass effect, or infarct. He had a major depressive disorder and was given Cymbalta 30 mg at 8 am. He came in with elevated renal function. Renal ultrasound done was negative. He underwent physical therapy. He came in with a left trochanter pressure ulcer stage II and multiple scabs on the bilateral lower extremity. Local wound care was given. He underwent physical therapy and was eventually discharged. FINAL DIAGNOSES: 1. Syncope, possibly vasovagal in origin. 2. Acute renal failure with tubular necrosis and chronic kidney disease, stage 1 present on admission. 3. Acute encephalopathy. 4. Anemia. 5. 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 6. Hypertension. 7. Diabetes mellitus type 2. 8. Major depressive disorder. 9. Abnormal gait. 10. Diabetes type 2 with diabetic neuropathy. 11. Hyperlipidemia. 12. Hypertension. 13. Stage II left trochanter pressure ulcer, present on admission. DISPOSITION: The patient was discharged to [facility]. DISCHARGE MEDICATIONS: Refer to med list. Maximiliano Arce M.D. I have been assigned to dictate discharge summary on this account and I was not involved in the patient's management. Zulema Graf N.P. DR: JULES JOB#: [id number] CC:
== END 2017-06-30 14:57 | DRG 682 ==
LOC: EDBD 13:15 → EMR 14:48 → 2E 14:51 → EDBEDREQ 18:57
DX: N17.0 Acute kidney failure with tubular necrosis (principal); G93.40 Encephalopathy, unspecified; L89.222 Pressure ulcer of left hip, stage 2; D64.9 Anemia, unspecified; E11.22 Type 2 diabetes mellitus with diabetic chronic kidney disease; R55 Syncope and collapse; I12.9 Hypertensive chronic kidney disease with stage 1 through stage 4 chronic kidney disease, or unspecified chronic kidney disease; N18.9 Chronic kidney disease, unspecified; Z86.73 Personal history of transient ischemic attack (TIA), and cerebral infarction without residual deficits; H40.9 Unspecified glaucoma; E78.00 Pure hypercholesterolemia, unspecified; I25.10 Atherosclerotic heart disease of native coronary artery without angina pectoris; I25.2 Old myocardial infarction; Z79.4 Long term (current) use of insulin; Z88.8 Allergy status to other drugs, medicaments and biological substances; H43.12 Vitreous hemorrhage, left eye; H54.8 Legal blindness, as defined in USA; E11.319 Type 2 diabetes mellitus with unspecified diabetic retinopathy without macular edema; R26.9 Unspecified abnormalities of gait and mobility
CPT/HCPCS: 36415; 70551; 71010; 76775; 80048; 80053; 80076; 81001; 82378; 82550; 82553; 82607; 82746; 82962; 83540; 83550; 83615; 83735; 83880; 84100; 84133; 84300; 84484; 84550; 85007; 85025; 85044; 85060; 85610; 85651; 85730; 86140; 89050; 90732; 93005; 93306; 93880; 93925; J1815

== ENCOUNTER 2019-02-19 12:35 | Inpatient (IN) | payer MEDICARE, OTHER ==
[~2019-02-19] VITALS: Ht 170.2 cm; Wt 55.3 kg
[~2019-02-19 12:35] MED LIST changes: +BENADRYL25 M3 PO; +CYMBALTA30 MG ORAL; +HYDRALAZINE HCL25 M1 ORAL; +NOVOLOG100 UNITS1 SUBQ; +TIMOPTIC 0.5%1 EACH OP
--- NOTE | 2019-02-19 13:00 | NUR ---
NURSE NOTES: pt with BLE multiple healed lesions and he has one open lesion left lower extremity. picture were taken. cleaned lesion and applied dressing, wound care plan initiated.
--- NOTE | 2019-02-19 13:11 | Emergency Room Report ---
History of Present Illness General Chief Complaint: General Complaint Source: Patient, EMS Present Illness HPI Patient brought from a rental facility. He states he's too weak to walk. He's been vomiting also. 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 He states that both legs are weak at this time. He says he's been trying to eat soup. He denies any chest pain, abdominal pain or change in his bowels. He denies dysuria. Paramedics transported the patient. They state that he's renting a facility and there is no one else to take care of him there. The patient states that he supposed to go to staff at [facility] the first of the month to get eye surgery. Allergies: Coded Allergies: METFORMIN (Unverified Allergy, Unknown, 02/19/19) ATORVASTATIN CALCIUM (Unverified Adverse Reaction, Unknown, NAUSEA, 02/22/13 ) NAUSEA Patient History Past Medical History: see triage record Social History: Denies: alcohol use Social History Narrative at [facility] Reviewed Nursing Documentation: PMH: Agreed; PSxH: Agreed Nursing Documentation-PM Past Medical History: No Stated History Hx Cardiac Problems: No Hx Hypertension: Yes Hx Pacemaker: No Hx COPD: No Hx Diabetes: Yes Hx Cancer: No Hx Gastrointestinal Problems: No - glaucoma Hx Dialysis: No Hx Neurological Problems: No Hx Cerebrovascular Accident: No Hx Seizures: No Hx Dizziness: Yes Hx Syncope: Yes Hx Headaches: Yes Hx Weakness: Yes Hx Fatigue: Yes Review of Systems All Other Systems: negative except mentioned in HPI Physical Exam Vital Signs Date Time Temp Pulse Resp B/P (MAP) Pulse Ox O2 Delivery O2 Flow Rate FiO2 02/19/19 12:27 98.2 82 15 187/76 98 Room Air Sp02 EP Interpretation: reviewed, normal General Appearance: no apparent distress, alert, thin, Chronically Ill Head: normocephalic Eyes: bilateral eye normal inspection, bilateral eye PERRL ENT: moist mucus membranes Neck: supple Respiratory: lungs clear, normal breath sounds Cardiovascular #1: regular rate, rhythm Cardiovascular #2: 2+ radial (R) Gastrointestinal: non tender, no guarding, no rebound, other - vomit is bile, Guaiac negative, decreased bowel sounds, scaphoid Genitourinary: no CVA tenderness Musculoskeletal: back normal, normal range of motion Neurologic: alert, DTRs symmetric, sensory intact, motor weakness - diffuse, oriented - X2 Psychiatric: depressed affect Skin: warm/dry, other - lesions lower legs Medical Decision Making Diagnostic Impression: Primary Impression: Renal failure Qualified Codes: N17.9 - Acute kidney failure, unspecified Additional Impressions: Elevated lactic acid level Hyperkalemia Failure to thrive Qualified Codes: R62.7 - Adult failure to thrive Vomiting Qualified Codes: R11.14 - Bilious vomiting Dehydration Protein calorie malnutrition Qualified Codes: E43 - Unspecified severe protein-calorie malnutrition ER Course Patient presents with weakness and vomiting. Ddx: AMI, occult infection, GItis , gastritis, food poisoning amongst others. Evaluation with EKG, CXR, labs. Treatment with IV hydration, Zofran, Pepcid. Not surgical abdomen, imaging not indicated at this time. EKG without injury. CXR no infiltrates. Labs with normal WBC, renal failure, high potassium. Elevated lactic acid. Elevated lactate. No source of infection. Elevated K treated with calcium and rectal Kayexelate. Holding antibiotics. Clinically improved. Normal WBC. Lactic acid improved with hydration. Still elevated. Admitted medical, Dr. Rosenbaum. Laboratory Tests Test 02/19/19 12:50 02/19/19 13:30 02/19/19 14:30 White Blood Count 6.6 K/UL (4.8-10.8) Red Blood Count 4.21 M/UL (4.70-6.10) L Hemoglobin 13.3 G/DL (14.2-18.0) L Hematocrit 39.7 % (42.0-52.0) L Mean Corpuscular Volume 94 FL (80-99) Mean Corpuscular Hemoglobin 31.5 PG (27.0-31.0) H Mean Corpuscular Hemoglobin Concent 33.5 G/DL (32.0-36.0) Red Cell Distribution Width 13.2 % (11.6-14.8) Platelet Count 195 K/UL (150-450) Mean Platelet Volume 7.1 FL (6.5-10.1) Neutrophils (%) (Auto) 81.7 % (45.0-75.0) H Lymphocytes (%) (Auto) 9.6 % (20.0-45.0) L Monocytes (%) (Auto) 7.1 % (1.0-10.0) Eosinophils (%) (Auto) 0.3 % (0.0-3.0) Basophils (%) (Auto) 1.2 % (0.0-2.0) Prothrombin Time 11.1 SEC (9.30-11.50) Prothrombin Time INR 1.1 (0.9-1.1) PTT 24 SEC (23-33) Urine Color Pale yellow Urine Appearance Clear Urine pH 8 (4.5-8.0) Urine Specific [place] 1.010 (1.005-1.035) Urine Protein 1+ (NEGATIVE) H Urine Glucose (UA) 1+ (NEGATIVE) H Urine Ketones Negative (NEGATIVE) Urine Blood 4+ (NEGATIVE) H Urine Nitrite Negative (NEGATIVE) Urine Bilirubin Negative (NEGATIVE) Urine Urobilinogen Normal MG/DL (0.0-1.0) Urine Leukocyte Esterase Negative (NEGATIVE) Urine RBC 5-10 /HPF (0 - 0) H Urine WBC 0 /HPF (0 - 0) Urine Squamous Epithelial Cells Occasional /LPF Urine Bacteria Occasional /HPF (NONE) Sodium Level 143 MMOL/L (136-145) Potassium Level 5.9 MMOL/L (3.5-5.1) H Chloride Level 109 MMOL/L (98-107) H Carbon Dioxide Level 29 MMOL/L (21-32) Anion Gap 5 mmol/L (5-15) Blood Urea Nitrogen 13 mg/dL (7-18) Creatinine 1.5 MG/DL (0.55-1.30) H Estimate Glomerular Filtration Rate mL/min (>60) Glucose Level 187 MG/DL (74-106) H Lactic Acid Level 3.60 mmol/L (0.4-2.0) H 2.80 mmol/L (0.66-2.22) H Calcium Level 8.6 MG/DL (8.5-10.1) Magnesium Level 2.0 MG/DL (1.8-2.4) Total Bilirubin 0.4 MG/DL (0.2-1.0) Aspartate Amino Transferase (AST) 15 U/L (15-37) Alanine Aminotransferase (ALT) 16 U/L (12-78) Alkaline Phosphatase 177 U/L (46-116) H Total Creatine Kinase 109 U/L (26-308) Creatine Kinase MB 2.5 NG/ML (0.0-3.6) Creatine Kinase MB Relative Index 2.2 Troponin I 0.018 ng/mL (0.000-0.056) Pro-B-Type Natriuretic Peptide 2652 pg/mL (0-125) H Total Protein 6.4 G/DL (6.4-8.2) Albumin 3.3 G/DL (3.4-5.0) L Globulin 3.1 g/dL Albumin/Globulin Ratio 1.1 (1.0-2.7) Lipase 74 U/L (73-393) EKG Diagnostic Results Rate: normal Rhythm: NSR ST Segments: no acute changes - LAS Rhythm Strip Diag. Results EP Interpretation: yes Rhythm: NSR, no PVC's, no ectopy Chest X-Ray Diagnostic Results Chest X-Ray Diagnostic Results : Chest X-Ray Ordered: Yes # of Views/Limited/Complete: 1 View Indication: Other EP Interpretation: Yes Interpretation: no consolidation, no effusion, no pneumothorax Impression: No acute disease Last Vital Signs Date Time Temp Pulse Resp B/P (MAP) Pulse Ox O2 Delivery O2 Flow Rate FiO2 02/19/19 18:37 98.2 63 16 132/68 97 Room Air Status: improved Disposition: ADMITTED INPATIENT Condition: Serious Scripts Unable to Obtain Active Prescriptions or Reported Meds Carlton Renner MD Feb 19, 2019 13:11
[2019-02-19 13:19] VITALS: BP 125/75
[2019-02-19 13:23] LABS: BASOPHILS % (AUTO) 1.2 % (0.0-2.0); EOSINOPHILS % (AUTO) 0.3 % (0.0-3.0); HEMATOCRIT 39.7 % (42.0-52.0); HEMOGLOBIN 13.3 G/DL (14.2-18.0); LYMPHOCYTES % (AUTO) 9.6 % (20.0-45.0); MEAN CORPUSCULAR VOLUME 94 FL (80-99); MONOCYTES % (AUTO) 7.1 % (1.0-10.0); NEUTROPHILS % (AUTO) 81.7 % (45.0-75.0); PLATELET COUNT 195 K/UL (150-450); RED BLOOD COUNT 4.21 M/UL (4.70-6.10); RED CELL DISTRIBUTION WIDTH 13.2 % (11.6-14.8); WHITE BLOOD COUNT 6.6 K/UL (4.8-10.8)
--- NOTE | 2019-02-19 13:28 | NUR ---
ED Nurse Note: pt brought in by [facility] from home c/o fall, per EMS report, pt rolled out of bed and fell, unable to get back and c/o abd and generalized body ache. pt aA&ox4, gcs=15, skin warm and dry, resp even and unlabored on RA, -n/v/d at this time, noted open wound on BLE with skin lesions. PT cleaned and changed into new gown, pt vSS, NSR on inspector toys at this time, will cont monitor. warm blanket provided for comfort.
--- NOTE | 2019-02-19 13:28 | Diagnostic Imaging Report ---
EXAM: XR Chest, 1 View CLINICAL HISTORY: WEAK TECHNIQUE: Frontal view of the chest. COMPARISON: No relevant prior studies available. FINDINGS: Lungs: No consolidation. Senescent changes. Pleural space: Unremarkable. No pneumothorax. Heart: Unremarkable. No cardiomegaly. Mediastinum: Unremarkable. Bones/joints: No acute fracture. IMPRESSION: No acute cardiopulmonary disease.
[2019-02-19 13:33] LABS: INR 1.1 (0.9-1.1)
[2019-02-19 13:52] LABS: APPEARANCE,URINE CLEAR; BILIRUBIN, URINE NEGATIVE (NEGATIVE); COLOR,URINE PALE YELLOW; GLUCOSE, URINE (UA) 1+ (NEGATIVE); KETONES,URINE NEGATIVE (NEGATIVE); LEUKOCYTE ESTERASE ,URINE NEGATIVE (NEGATIVE); NITRITE,URINE NEGATIVE (NEGATIVE); PROTEIN,URINE 1+ (NEGATIVE); UROBILINOGEN,URINE NORMAL MG/DL (0.0-1.0)
[2019-02-19 13:57] LABS: PH,URINE 8 (4.5-8.0)
[2019-02-19 14:09] LABS: ALANINE AMINOTRANSFERASE 16 U/L (12-78); ALBUMIN 3.3 G/DL (3.4-5.0); ALBUMIN/GLOBULIN RATIO 1.1 (1.0-2.7); ALKALINE PHOSPHATASE 177 U/L (46-116); ANION GAP 5 mmol/L (5-15); ASPARTATE AMINO TRANSFERASE 15 U/L (15-37); BILIRUBIN,TOTAL 0.4 MG/DL (0.2-1.0); BLOOD UREA NITROGEN 13 mg/dL (7-18); CALCIUM 8.6 MG/DL (8.5-10.1); CARBON DIOXIDE 29 MMOL/L (21-32); CHLORIDE 109 MMOL/L (98-107); CKMB 2.5 NG/ML (0.0-3.6); CREATINE KINASE 109 U/L (26-308); CREATININE 1.5 MG/DL (0.55-1.30); SODIUM 143 MMOL/L (136-145)
[2019-02-19 14:10] LABS: POTASSIUM 5.9 MMOL/L (3.5-5.1)
[2019-02-19] MEDS ORDERED: Sodium Polystyrene Sulfonate 15gm Powder RECTAL STA (15:05)
[2019-02-19] MEDS ORDERED: Calcium Gluconate 1gm/10ml vial IVP ONE (15:15)
[2019-02-19 16:46] VITALS: BP 146/66
[2019-02-19] MEDS ORDERED: Morphine Sulfate 2mg/ml Inj(IV/IM USE ONLY) IVP PRN (17:14)
[2019-02-19] MEDS ORDERED: LORazepam Inj 2mg/ml 1ml IV PRN (17:14)
[2019-02-19] MEDS ORDERED: Mylanta II UD 30ml ORAL PRN (17:15)
[2019-02-19 18:37] VITALS: BP 132/68
--- NOTE | 2019-02-19 19:11 | NUR ---
HAND-OFF: Report given to Shauna CARROLL. Given badbath to the patient after kayexalate, patient had bm x2. patient kept clean and dry. new linens and gowns provided. Endorsed Shauna CARROLL that patient has glasses, 1 shirt, and 1 socks by the bedside in the belonging bag. Endorsed Shauna CARROLL about patient's cellphone.
[2019-02-19] MEDS ORDERED: Zolpidem 5mg tab ORAL PRN (21:00)
[2019-02-19] MEDS ORDERED: Miralax 17gm pkt ORAL PRN (21:00)
[2019-02-19 21:03] VITALS: BP 135/70
--- NOTE | 2019-02-19 21:05 | NUR ---
ED Nurse Note: Patient was admited to Med Surg due to generalised body pain. AAO x4, VSS at this time, patient has skin leision on his left lower extremity, pictures are taken and uploded. All belongings were given to the patient. GLEN Hernandez aware of lost cell phone. Patient was transfered by ACLS protocol.
--- NOTE | 2019-02-19 21:10 | NUR ---
NURSE NOTES: pt was admitted to medsur floor. for generalized weakness and renal failure. pt AAOx4, no c/o pain at this time. no sob. no acute distress noted. per [facility] ER Nurse pt's Iphone missing. belonging list verified signed and placed in chart. fall precaution in place. will continue to monitor pt
[2019-02-19] MEDS: Tamsulosin 0.4mg cap ORAL SCH (21:51)
[2019-02-19] MEDS: HydrALAZINE 25mg tab ORAL SCH (21:52)
[2019-02-19] MEDS: NovoLOG Insulin Flexpen SUBQ SCH (21:55)
[2019-02-19] MEDS: Heparin 5000 units/ml inj SUBQ SCH (21:55)
[2019-02-20] VITALS: BP 125/48
--- NOTE | 2019-02-20 02:38 | NUR ---
NURSE NOTES: pt sleeping no acute distress no s/s of discomfort or pain. will continue to monitor.
[2019-02-20] MEDS: HydrALAZINE 25mg tab ORAL SCH ×3 (05:56→21:38)
[2019-02-20] MEDS: NovoLOG Insulin Flexpen SUBQ SCH ×4 (05:58→21:43)
--- NOTE | 2019-02-20 07:20 | NUR ---
HAND-OFF: Report given to GLEN Gonzalez.pt remains in stable condition, no change in condition during my shift.
[2019-02-20 07:28] LABS: BASOPHILS % (AUTO) 0.7 % (0.0-2.0); HEMATOCRIT 32.6 % (42.0-52.0); HEMOGLOBIN 10.9 G/DL (14.2-18.0); MEAN CORPUSCULAR VOLUME 95 FL (80-99); MONOCYTES % (AUTO) 7.1 % (1.0-10.0); NEUTROPHILS % (AUTO) 67.2 % (45.0-75.0); PLATELET COUNT 118 K/UL (150-450); RED BLOOD COUNT 3.42 M/UL (4.70-6.10); WHITE BLOOD COUNT 4.8 K/UL (4.8-10.8)
[2019-02-20 07:37] LABS: ALANINE AMINOTRANSFERASE 16 U/L (12-78); ALBUMIN 2.9 G/DL (3.4-5.0); ALKALINE PHOSPHATASE 128 U/L (46-116); ANION GAP 4 mmol/L (5-15); ASPARTATE AMINO TRANSFERASE 13 U/L (15-37); BILIRUBIN,TOTAL 0.5 MG/DL (0.2-1.0); BLOOD UREA NITROGEN 15 mg/dL (7-18); CALCIUM 8.7 MG/DL (8.5-10.1); CARBON DIOXIDE 28 MMOL/L (21-32); CHLORIDE 110 MMOL/L (98-107); CHOLESTEROL 122 MG/DL (< 200); CREATININE 1.5 MG/DL (0.55-1.30); HDL CHOLESTEROL 50 MG/DL (40-60); POTASSIUM 5.3 MMOL/L (3.5-5.1); SODIUM 142 MMOL/L (136-145); TRIGLYCERIDES 64 MG/DL (30-150)
[2019-02-20 08:00] VITALS: BP 152/65
[2019-02-20] MEDS: Heparin 5000 units/ml inj SUBQ SCH ×2 (08:48→21:00)
[2019-02-20] MEDS: DULoxetine 30mg cap ORAL SCH (08:48)
[2019-02-20] MEDS: Atenolol 25mg tab ORAL SCH (08:48)
--- NOTE | 2019-02-20 10:13 | NUR ---
RD ASSESSMENT & RECOMMENDATIONS SEE CARE ACTIVITY FOR COMPLETE ASSESSMENT DAILY ESTIMATED NEEDS: Needs based on Cardiac, DM, underweight 55.5kg 30-35 kcals/kg 5063-7534 total kcals 1-1.5 g protein/kg 56-83 g total protein 25-30 mL/kg 6515-6495 total fluid mLs NUTRITION DIAGNOSIS: 1) Decreased sodium needs r/t cardiac history and clinical status as evidence by pt with HTN, elev BP (152/65), elev creat, elev BNP. PO DIET RECOMMENDATIONS: CCHO MED + LOW NA (Soft texture as tolerated) ADDITIONAL RECOMMENDATIONS: * Obtain a standing weight for accurate eval * Snacks in b/w meals + Glucerna 1 tetra param daily * F/up w/ WC eval * Rec A1C for eval/ h/o DM * Monitor K/ need for dietary restriction
[2019-02-20 12:00] VITALS: BP 179/82
--- NOTE | 2019-02-20 12:56 | Consultation ---
History of Present Illness General Date patient seen: Feb 20, 2019 Chief Complaint: General Complaint Present Illness HPI 76 year of male with hx of DM and HTN, presented to ER from a possibly residential care facility with cc of vomiting and inability to walk and take care of himself. Currently feels "weak". He was found to be dehydrated and in renal failure with hyperglycemia. Allergies: Coded Allergies: METFORMIN (Unverified Allergy, Unknown, 02/19/19) ATORVASTATIN CALCIUM (Unverified Adverse Reaction, Unknown, NAUSEA, 02/22/13 ) NAUSEA Medication History Unable to Obtain Active Prescriptions or Reported Meds Patient History Healthcare decision maker Resuscitation status Advanced Directive on File No Past Medical/Surgical History Past Medical/Surgical History: (1) Diabetes mellitus, type II (2) HTN (hypertension) (3) Cerebral vascular disease (4) Diabetic polyneuropathy (5) s/p multiple lacunar strokes, old (6) Blind in both eyes (7) Protein calorie malnutrition Review of Systems All Other Systems: negative except mentioned in HPI Physical Exam General Appearance: cachetic Lines, tubes and drains: peripheral HEENT: normocephalic, atraumatic Neck: non-tender, normal inspection Respiratory/Chest: chest wall non-tender, lungs clear Cardiovascular/Chest: normal peripheral pulses, normal rate Abdomen: normal bowel sounds, non tender Genitourinary/Rectal: normal genital exam Extremities: non-pitting Skin Exam: other - multiple lesion Neurologic: supervisor forming department II-XII grossly normal, no Babinski Lymphatic: anterior cervical Last 24 Hour Vital Signs Date Time Temp Pulse Resp B/P (MAP) Pulse Ox O2 Delivery O2 Flow Rate FiO2 02/20/19 12:00 98.0 54 18 179/82 (114) 100 02/20/19 09:00 Room Air 02/20/19 08:48 67 152/65 02/20/19 08:00 97.2 67 19 152/65 (94) 100 02/20/19 05:56 125/48 02/20/19 00:00 99.1 66 18 125/48 (73) 100 02/19/19 22:19 Room Air 02/19/19 21:52 138/71 02/19/19 21:05 98.2 65 18 135/70 35 Room Air 02/19/19 21:03 98.2 70 18 135/70 98 Room Air 02/19/19 18:37 98.2 63 16 132/68 97 Room Air 02/19/19 16:46 98.2 85 15 146/66 98 Room Air 02/19/19 13:20 82 15 Room Air 02/19/19 13:19 98.2 69 15 125/75 98 Room Air Intake and Output 02/19/19 02/20/19 18:59 06:59 Intake Total 200 ml Balance 200 ml Intake Oral 200 ml # Voids 1 Laboratory Tests Test 02/19/19 13:30 02/19/19 14:30 02/20/19 06:40 Urine Color Pale yellow Urine Appearance Clear Urine pH 8 (4.5-8.0) Urine Specific [place] 1.010 (1.005-1.035) Urine Protein 1+ (NEGATIVE) H Urine Glucose (UA) 1+ (NEGATIVE) H Urine Ketones Negative (NEGATIVE) Urine Blood 4+ (NEGATIVE) H Urine Nitrite Negative (NEGATIVE) Urine Bilirubin Negative (NEGATIVE) Urine Urobilinogen Normal MG/DL (0.0-1.0) Urine Leukocyte Esterase Negative (NEGATIVE) Urine RBC 5-10 /HPF (0 - 0) H Urine WBC 0 /HPF (0 - 0) Urine Squamous Epithelial Cells Occasional /LPF Urine Bacteria Occasional /HPF (NONE) Sodium Level 143 MMOL/L (136-145) 142 MMOL/L (136-145) Potassium Level 5.9 MMOL/L (3.5-5.1) H 5.3 MMOL/L (3.5-5.1) H Chloride Level 109 MMOL/L (98-107) H 110 MMOL/L (98-107) H Carbon Dioxide Level 29 MMOL/L (21-32) 28 MMOL/L (21-32) Anion Gap 5 mmol/L (5-15) 4 mmol/L (5-15) L Blood Urea Nitrogen 13 mg/dL (7-18) 15 mg/dL (7-18) Creatinine 1.5 MG/DL (0.55-1.30) H 1.5 MG/DL (0.55-1.30) H Estimat Glomerular Filtration Rate mL/min (>60) mL/min (>60) Glucose Level 187 MG/DL (74-106) H 110 MG/DL (74-106) H Lactic Acid Level 3.60 mmol/L (0.4-2.0) H 2.80 mmol/L (0.66-2.22) H Calcium Level 8.6 MG/DL (8.5-10.1) 8.7 MG/DL (8.5-10.1) Magnesium Level 2.0 MG/DL (1.8-2.4) Total Bilirubin 0.4 MG/DL (0.2-1.0) 0.5 MG/DL (0.2-1.0) Aspartate Amino Transf (AST/SGOT) 15 U/L (15-37) 13 U/L (15-37) L Alanine Aminotransferase (ALT/SGPT) 16 U/L (12-78) 16 U/L (12-78) Alkaline Phosphatase 177 U/L (46-116) H 128 U/L (46-116) H Total Creatine Kinase 109 U/L (26-308) Creatine Kinase MB 2.5 NG/ML (0.0-3.6) Creatine Kinase MB Relative Index 2.2 Troponin I 0.018 ng/mL (0.000-0.056) Pro-B-Type Natriuretic Peptide 2652 pg/mL (0-125) H Total Protein 6.4 G/DL (6.4-8.2) 5.8 G/DL (6.4-8.2) L Albumin 3.3 G/DL (3.4-5.0) L 2.9 G/DL (3.4-5.0) L Globulin 3.1 g/dL 2.9 g/dL Albumin/Globulin Ratio 1.1 (1.0-2.7) 1.0 (1.0-2.7) Lipase 74 U/L (73-393) White Blood Count 4.8 K/UL (4.8-10.8) Red Blood Count 3.42 M/UL (4.70-6.10) L Hemoglobin 10.9 G/DL (14.2-18.0) L Hematocrit 32.6 % (42.0-52.0) L Mean Corpuscular Volume 95 FL (80-99) Mean Corpuscular Hemoglobin 32.0 PG (27.0-31.0) H Mean Corpuscular Hemoglobin Concent 33.5 G/DL (32.0-36.0) Red Cell Distribution Width 13.0 % (11.6-14.8) Platelet Count 118 K/UL (150-450) L Mean Platelet Volume 6.8 FL (6.5-10.1) Neutrophils (%) (Auto) 67.2 % (45.0-75.0) Lymphocytes (%) (Auto) 24.0 % (20.0-45.0) Monocytes (%) (Auto) 7.1 % (1.0-10.0) Eosinophils (%) (Auto) 1.0 % (0.0-3.0) Basophils (%) (Auto) 0.7 % (0.0-2.0) Triglycerides Level 64 MG/DL (30-150) Cholesterol Level 122 MG/DL (< 200) LDL Cholesterol 57 mg/dL (<100) HDL Cholesterol 50 MG/DL (40-60) Cholesterol/HDL Ratio 2.4 (3.3-4.4) L Height (Feet): 5 Height (Inches): 7.00 Weight (Pounds): 122 Medications Current Medications Medications (Trade) Dose Ordered Sig/Meera Route PRN Reason Start Time Stop Time Status Last Admin Dose Admin Acetaminophen (Tylenol) 650 mg Q4H PRN ORAL fever 02/19/19 17:14 03/21/19 17:13 Al Hydroxide/Mg Hydroxide (Mylanta II) 30 ml Q6H PRN ORAL dyspepsia 02/19/19 17:15 03/21/19 17:14 Atenolol (Tenormin) 25 mg DAILY ORAL 02/20/19 09:00 03/22/19 08:59 02/20/19 08:48 Clonidine HCl (Catapres Tab) 0.1 mg Q4H PRN ORAL For High Blood Pressure > 160 02/19/19 17:15 03/21/19 17:14 Dextrose (Dextrose 50%) 25 ml Q30M PRN IV Hypoglycemia 02/19/19 17:15 03/21/19 17:14 Dextrose (Dextrose 50%) 50 ml Q30M PRN IV Hypoglycemia 02/19/19 17:15 03/21/19 17:14 Duloxetine HCl (Cymbalta) 30 mg DAILY ORAL 02/20/19 09:00 03/22/19 08:59 02/20/19 08:48 Heparin Sodium (Porcine) (Heparin 5000 units/ml) 5,000 units EVERY 12 HOURS SUBQ 02/19/19 21:00 03/21/19 20:59 02/19/19 21:55 Hydralazine HCl (Apresoline) 25 mg Q8HR ORAL 02/19/19 22:00 03/21/19 21:59 02/20/19 05:56 Insulin Aspart (NovoLOG) BEFORE MEALS AND HS SUBQ 02/19/19 21:00 03/21/19 20:59 02/20/19 05:58 Lorazepam (Ativan 2mg/ml 1ml) 0.5 mg Q4H PRN IV For Anxiety 02/19/19 17:14 02/26/19 17:13 Morphine Sulfate (Morphine Sulfate) 1 mg Q4H PRN IVP For Pain 02/19/19 17:14 02/26/19 17:13 Ondansetron HCl (Zofran) 4 mg Q6H PRN IVP Nausea & Vomiting 02/19/19 17:14 03/21/19 17:13 Polyethylene Glycol (Miralax) 17 gm HSPRN PRN ORAL Constipation 02/19/19 21:00 03/21/19 20:59 Tamsulosin HCl (Flomax) 0.4 mg BEDTIME ORAL 02/19/19 21:00 03/21/19 20:59 02/19/19 21:51 Zolpidem Tartrate (Ambien) 5 mg HSPRN PRN ORAL Insomnia 02/19/19 21:00 02/26/19 20:59 Assessment/Plan Problem List: (1) Acute encephalopathy ICD Codes: G93.40 - Encephalopathy, unspecified SNOMED: 4577646 (2) Intractable nausea and vomiting ICD Codes: R11.2 - Nausea with vomiting, unspecified SNOMED: 748228599 (3) ATN (acute tubular necrosis) ICD Codes: N17.0 - Acute kidney failure with tubular necrosis SNOMED: 26518087 (4) HTN (hypertension) ICD Codes: I10 - Essential (primary) hypertension SNOMED: 53130228 (5) Anemia ICD Codes: D64.9 - Anemia, unspecified SNOMED: 030461364 (6) s/p multiple lacunar strokes, old (7) Diabetes mellitus, type II ICD Codes: E11.9 - Type 2 diabetes mellitus without complications SNOMED: 46024547 Assessment/Plan iv fluids check electrolytes sliding scale pt/ot social service consult wound care might need placement. Maximiliano Arce MD Feb 20, 2019 12:55
[2019-02-20 13:34] LABS: LACTATE DEHYDROGENASE 279 U/L (81-234)
[2019-02-20 13:35] LABS: CREATINE KINASE 84 U/L (26-308)
[2019-02-20 13:45] LABS: APPEARANCE,URINE CLOUDY; BILIRUBIN, URINE NEGATIVE (NEGATIVE); GLUCOSE, URINE (UA) 1+ (NEGATIVE); KETONES,URINE NEGATIVE (NEGATIVE); LEUKOCYTE ESTERASE ,URINE NEGATIVE (NEGATIVE); NITRITE,URINE NEGATIVE (NEGATIVE); PH,URINE 7 (4.5-8.0); PROTEIN,URINE 2+ (NEGATIVE); UROBILINOGEN,URINE NORMAL MG/DL (0.0-1.0)
[2019-02-20 13:56] LABS: COLOR,URINE YELLOW
--- NOTE | 2019-02-20 13:57 | NUR ---
CASE MANAGEMENT: REVIEW 78/M BIBA FROM : URINARY FREQUENCY X2 WEEKS . TOO WEAK TO WALK . VOMITING SI: FAILURE TO THRIVE . DEHYDRATION . RENAL FAILURE T 99.1 HR 66 RR 18 BP 125/48 SAT 97% ROOM AIR K 5.3 CR 1.5 LACTIC ACID 2.80 AST 13 LACTATED DEHYDRO 279 IS: ZOFRAN IV X1 PEPCID IV X1 NS IVF BOLUS X1 CALCIUM GLUCONATE IV X1 KAYEXALATE RECTAL X1 PATIENT ADMITTED TO MED/SURG UNIT 02/19/2019 DCP: PATIENT IS FROM HOME
[2019-02-20 14:00] LABS: % IRON SATURATION 32 % (15-50); IRON 38 ug/dL (50-175); TOTAL IRON BINDING CAPACITY 118 ug/dL (250-450)
[2019-02-20 14:07] LABS: INR 1.1 (0.9-1.1)
[2019-02-20 16:00] VITALS: BP 146/71
--- NOTE | 2019-02-20 17:25 | History & Physical ---
History and Physical History & Physicial Dictated for Int Med-Dr Rosenbaum no. [id number]. Xu Guerra MD Feb 20, 2019 17:25
--- NOTE | 2019-02-20 18:15 | History and Physical Report ---
DATE OF ADMISSION: 02/19/2019 CHIEF COMPLAINT: The patient is a 78-year-old male, who presents with chief complaint of nausea and vomiting. HISTORY OF PRESENT ILLNESS: The patient himself states he did not want to come to the hospital. The patient states he was told to come in to the hospital by his roommates. The patient states he began to experience nausea and vomiting three days ago. The patient was also generally weak. The patient has a surgery scheduled in [facility] on March 16. The patient wishes to be discharged to get to his surgery. The patient presented to [facility]. The patient is admitted for nausea and vomiting with generalized weakness. REVIEW OF SYSTEMS: CONSTITUTIONAL: The patient denies weight loss or weight gain. The patient denies fevers or chills. HEENT: The patient denies ear or throat pain. The patient denies headache. The patient is blind in the left eye. CARDIOVASCULAR: The patient denies palpitations or chest pain. CHEST: The patient denies wheeze or shortness of breath. ABDOMINAL: The patient complains of nausea and vomiting as above. The patient denies constipation or diarrhea. GENITOURINARY: The patient denies dysuria or increased frequency of urination. NEUROMUSCULAR: The patient denies seizures or generalized weakness. PAST MEDICAL HISTORY: Significant for: 1. Blindness of the left eye. 2. Hypertension. 3. Diabetes type 2. 4. Cerebrovascular disease, status post cerebrovascular accident x3. 5. Hypercholesterolemia. 6. Coronary artery disease. PAST SURGICAL HISTORY: The patient denies. CURRENT MEDICATIONS: 1. Aspirin 81 mg one tablet p.o. daily. 2. Atenolol 50 mg one tablet p.o. daily. 3. Combigan five drops in both eyes twice daily. 4. Azopt two drops in both eyes three times daily. 5. Cymbalta 30 mg p.o. daily. 6. Folic acid 1 mg p.o. daily. 7. Gabapentin 600 mg p.o. twice daily. 8. NovoLog sliding scale. 9. Metformin 500 mg p.o. daily. 10. Bystolic 10 mg p.o. daily. 11. Lovaza 1 g p.o. twice daily. 12. Flomax 0.4 mg p.o. daily. 13. Timolol one drop in each eye twice daily. 14. Ambien 10 mg p.o. nightly. ALLERGIES: To atorvastatin. SOCIAL HISTORY: The patient is a . The patient rents a room. The patient denies tobacco use. The patient admits to alcohol use of once yearly. PHYSICAL EXAMINATION: VITAL SIGNS: Temperature 98.0 degrees, respirations 18, pulse 54, and blood pressure 179/82. GENERAL: The patient is a well-developed and well-nourished male, in no apparent distress. HEENT: Eyes, pupils equal and responsive to light and accommodation. Extraocular movements are intact. NECK: Supple without lymphadenopathy. CHEST: Lungs are clear to auscultation bilaterally without wheezes or rales. CARDIOVASCULAR: Regular rate. S1 and S2 are normal without murmurs, rubs, or gallops. ABDOMEN: Soft, nontender, and nondistended. Positive bowel sounds. No evidence of hepatosplenomegaly. Currently, no rebound or guarding noted. EXTREMITIES: Negative for clubbing, cyanosis, or edema. RECTAL: Refused. GENITALIA: Refused. NEUROLOGICAL: Cranial nerves II through XII are grossly intact without focal deficits. Motor strength is 5/5 bilaterally intact. Deep tendon reflexes are 2+ plantar. LABORATORY STUDIES: WBC 6.6, hemoglobin 13.3, hematocrit 39.7, and platelets 195,000. Sodium 142, potassium 5.3, chloride 110, CO2 28, BUN 15, creatinine 1.5, and glucose 110. ASSESSMENT: This is a 78-year-old male with: 1. Nausea and vomiting. 2. Generalized weakness. 3. Hypertension. 4. Diabetes type 2. 5. Cerebrovascular disease. 6. Hypercholesterolemia. 7. Coronary artery disease. 8. Blindness of the left eye. TREATMENT: 1. Nausea with vomiting. A Gastroenterology consultation was obtained with Dr. Carson Segundo. The patient is tolerating a p.o. diet here. We will follow recommendations of Gastroenterology. 2. Generalized weakness. This could be secondary to decreased p.o. intake. 3. Hypertension. Continue atenolol as above. 4. Diabetes type 2. A NovoLog sliding scale has been instituted. 5. Cerebrovascular disease. 6. Hypercholesterolemia. 7. History of coronary artery disease. 8. Blindness of the left eye. The patient is scheduled for surgery at [facility] on March 16. Xu Guerra M.D. DR: Meng JOB#: [id number] CC:
--- NOTE | 2019-02-20 19:21 | NUR ---
HAND-OFF: Report given to GLEN Roberts.
[2019-02-20 20:00] VITALS: BP 119/54
--- NOTE | 2019-02-20 20:21 | NUR ---
NURSE NOTES: Received patient in bed, sleeping, no s/s of discomfort or pain. Will continue to monitor.
[2019-02-20] MEDS: Tamsulosin 0.4mg cap ORAL SCH (21:38)
[2019-02-21 00:21] VITALS: BP 105/44
--- NOTE | 2019-02-21 04:12 | NUR ---
NURSE NOTES: Patient is incontinent x1, refused blunt catheter, but agreed to condom catheter (size 25). Assessed and changed dressing on patient's left lower extremity. Will continue to monitor.
[2019-02-21 04:47] VITALS: BP 120/57
[2019-02-21] MEDS: HydrALAZINE 25mg tab ORAL SCH ×3 (05:48→21:31)
[2019-02-21] MEDS: NovoLOG Insulin Flexpen SUBQ SCH ×4 (06:11→21:33)
[2019-02-21 07:01] LABS: HEMATOCRIT 31.1 % (42.0-52.0); HEMOGLOBIN 10.6 G/DL (14.2-18.0); MEAN CORPUSCULAR VOLUME 94 FL (80-99); PLATELET COUNT 106 K/UL (150-450); RED BLOOD COUNT 3.32 M/UL (4.70-6.10); RED CELL DISTRIBUTION WIDTH 12.8 % (11.6-14.8); WHITE BLOOD COUNT 3.4 K/UL (4.8-10.8)
[2019-02-21 07:10] LABS: ALANINE AMINOTRANSFERASE 16 U/L (12-78); ALBUMIN 2.7 G/DL (3.4-5.0); ALBUMIN/GLOBULIN RATIO 0.9 (1.0-2.7); ALKALINE PHOSPHATASE 115 U/L (46-116); ANION GAP 7 mmol/L (5-15); ASPARTATE AMINO TRANSFERASE 15 U/L (15-37); BILIRUBIN,TOTAL 0.4 MG/DL (0.2-1.0); BLOOD UREA NITROGEN 19 mg/dL (7-18); CALCIUM 8.5 MG/DL (8.5-10.1); CARBON DIOXIDE 27 MMOL/L (21-32); CHLORIDE 106 MMOL/L (98-107); CREATININE 1.5 MG/DL (0.55-1.30); PHOSPHORUS 3.2 MG/DL (2.5-4.9); POTASSIUM 4.9 MMOL/L (3.5-5.1); SODIUM 140 MMOL/L (136-145)
--- NOTE | 2019-02-21 07:37 | NUR ---
HAND-OFF: Report given to GLEN Agustin.
--- NOTE | 2019-02-21 07:49 | NUR ---
NURSE NOTES: pt in bed with no sob nor in any form of distress noted. Breathing regular and unlabored. denies any pain at this time. will continue to monitor
[2019-02-21 08:00] VITALS: BP 121/53
[2019-02-21] MEDS: Heparin 5000 units/ml inj SUBQ SCH ×2 (08:12→21:00)
[2019-02-21] MEDS: DULoxetine 30mg cap ORAL SCH (08:12)
[2019-02-21] MEDS: Atenolol 25mg tab ORAL SCH (08:12)
[2019-02-21 12:00] VITALS: BP 124/54
--- NOTE | 2019-02-21 12:36 | Pulmonology Progress Note ---
Assessment/Plan Problems: (1) Acute encephalopathy (2) Intractable nausea and vomiting (3) ATN (acute tubular necrosis) (4) HTN (hypertension) (5) Anemia (6) s/p multiple lacunar strokes, old (7) Diabetes mellitus, type II Assessment/Plan pt/ot anemia w/u in progress monitor BP sliding scale diabetic diet US of carotid artery Echo. Subjective ROS Limited/Unobtainable: No Interval Events: feeling weak, Allergies: Coded Allergies: METFORMIN (Unverified Allergy, Unknown, 02/19/19) ATORVASTATIN CALCIUM (Unverified Adverse Reaction, Unknown, NAUSEA, 02/22/13 ) NAUSEA Objective Last 24 Hour Vital Signs Date Time Temp Pulse Resp B/P (MAP) Pulse Ox O2 Delivery O2 Flow Rate FiO2 02/21/19 08:42 Room Air 02/21/19 08:12 55 121/53 02/21/19 08:00 97.9 55 19 121/53 (75) 100 02/21/19 05:48 137/55 02/21/19 04:47 97.7 51 19 120/57 (78) 100 02/21/19 00:21 98.0 69 18 105/44 (64) 98 02/20/19 21:38 124/56 02/20/19 21:00 Room Air 02/20/19 20:00 98.0 51 18 119/54 (75) 100 02/20/19 16:00 97.9 57 18 146/71 (96) 100 02/20/19 14:01 179/82 02/20/19 14:00 179/82 Intake and Output 02/20/19 02/21/19 19:00 07:00 Intake Total 600 ml 200 ml Balance 600 ml 200 ml Intake Oral 600 ml 200 ml # Voids 1 # Bowel Movements 1 1 General Appearance: cachetic HEENT: normocephalic, atraumatic Respiratory/Chest: chest wall non-tender, normal breath sounds Cardiovascular: normal peripheral pulses, normal rate Abdomen: normal bowel sounds, soft, non tender Genitourinary: normal external genitalia Skin: no rash Laboratory Tests 02/20/19 13:30: Urine Color Yellow, Urine Appearance Cloudy, Urine pH 7, Urine Specific [place] 1.010, Urine Protein 2+H, Urine Glucose (UA) 1+H, Urine Ketones Negative, Urine Blood Negative, Urine Nitrite Negative, Urine Bilirubin Negative, Urine Urobilinogen Normal, Urine Leukocyte Esterase Negative, Urine RBC 0-2H, Urine WBC 0-2, Urine Squamous Epithelial Cells Few, Urine Amorphous Sediment ManyH, Urine Bacteria Occasional, Urine Eosinophils None seen, Urine Random Creatinine [Pending], Urine Random Microalbumin [Pending], Urine Random Sodium 111H, Urine Creatinine 41.1, Urine Microalbumin/Creatinine Ratio [Pending], Urine Potassium Timed 54 02/20/19 13:40: Prothrombin Time 11.9H, Prothromb Time International Ratio 1.1, Activated Partial Thromboplast Time 28 02/21/19 05:20: White Blood Count 3.4L, Red Blood Count 3.32L, Hemoglobin 10.6L, Hematocrit 31.1L, Mean Corpuscular Volume 94, Mean Corpuscular Hemoglobin 32.0H, Mean Corpuscular Hemoglobin Concent 34.1, Red Cell Distribution Width 12.8, Platelet Count 106L, Mean Platelet Volume 6.7, Neutrophils (%) (Auto) , Lymphocytes (%) ( Auto) , Monocytes (%) (Auto) , Eosinophils (%) (Auto) , Basophils (%) (Auto) , Differential Total Cells Counted 100, Neutrophils % (Manual) 60, Lymphocytes % ( Manual) 35, Monocytes % (Manual) 4, Eosinophils % (Manual) 1, Basophils % ( Manual) 0, Band Neutrophils 0, Platelet Estimate DecreasedL, Platelet Morphology Normal, Red Blood Cell Morphology Normal, Erythrocyte Sedimentation Rate 47H, Sodium Level 140, Potassium Level 4.9, Chloride Level 106, Carbon Dioxide Level 27, Anion Gap 7, Blood Urea Nitrogen 19H, Creatinine 1.5H, Estimat Glomerular Filtration Rate , Glucose Level 90, Calcium Level 8.5, Phosphorus Level 3.2, Magnesium Level 2.0, Total Bilirubin 0.4, Aspartate Amino Transf (AST/SGOT) 15, Alanine Aminotransferase (ALT/SGPT) 16, Alkaline Phosphatase 115, C-Reactive Protein, Quantitative 1.7H, Total Protein 5.6L, Albumin 2.7L, Globulin 2.9, Albumin/Globulin Ratio 0.9L Current Medications Medications (Trade) Dose Ordered Sig/Meera Route PRN Reason Start Time Stop Time Status Last Admin Dose Admin Acetaminophen (Tylenol) 650 mg Q4H PRN ORAL fever 02/19/19 17:14 03/21/19 17:13 Al Hydroxide/Mg Hydroxide (Mylanta II) 30 ml Q6H PRN ORAL dyspepsia 02/19/19 17:15 03/21/19 17:14 Atenolol (Tenormin) 25 mg DAILY ORAL 02/20/19 09:00 03/22/19 08:59 02/20/19 08:48 Clonidine HCl (Catapres Tab) 0.1 mg Q4H PRN ORAL For High Blood Pressure > 160 02/19/19 17:15 03/21/19 17:14 02/20/19 14:00 Dextrose (Dextrose 50%) 25 ml Q30M PRN IV Hypoglycemia 02/19/19 17:15 03/21/19 17:14 Dextrose (Dextrose 50%) 50 ml Q30M PRN IV Hypoglycemia 02/19/19 17:15 03/21/19 17:14 Duloxetine HCl (Cymbalta) 30 mg DAILY ORAL 02/20/19 09:00 03/22/19 08:59 02/21/19 08:12 Heparin Sodium (Porcine) (Heparin 5000 units/ml) 5,000 units EVERY 12 HOURS SUBQ 02/19/19 21:00 03/21/19 20:59 02/19/19 21:55 Hydralazine HCl (Apresoline) 25 mg Q8HR ORAL 02/19/19 22:00 03/21/19 21:59 02/20/19 21:38 Insulin Aspart (NovoLOG) BEFORE MEALS AND HS SUBQ 02/19/19 21:00 03/21/19 20:59 02/21/19 11:13 Lorazepam (Ativan 2mg/ml 1ml) 0.5 mg Q4H PRN IV For Anxiety 02/19/19 17:14 02/26/19 17:13 Morphine Sulfate (Morphine Sulfate) 1 mg Q4H PRN IVP For Pain 02/19/19 17:14 02/26/19 17:13 Ondansetron HCl (Zofran) 4 mg Q6H PRN IVP Nausea & Vomiting 02/19/19 17:14 03/21/19 17:13 Polyethylene Glycol (Miralax) 17 gm HSPRN PRN ORAL Constipation 02/19/19 21:00 03/21/19 20:59 Tamsulosin HCl (Flomax) 0.4 mg BEDTIME ORAL 02/19/19 21:00 03/21/19 20:59 02/20/19 21:38 Zolpidem Tartrate (Ambien) 5 mg HSPRN PRN ORAL Insomnia 02/19/19 21:00 02/26/19 20:59 Maximiliano Arce MD Feb 21, 2019 12:36
--- NOTE | 2019-02-21 13:53 | NUR ---
Social Service Note Patient is alert, oriented and verbally responsive. Prior to admission patient lives in a house where he rents a room. Patient no longer has a caregiver, per patient Rachel Resendez should not be contacted and removed from face sheet. Patient states he uses a FWW and has 3 steps to get into the house. Patient's friend Patrizia Hunt [phone] has been assisting patient with grocery shopping and care at home. Patient states in September he was placed at [facility] and hated this placement. Patient states he required rehab and medication management. Patient cannot recall when he returned home. Patient would like Patrizia to be his IHSS care provider. Patient currently not showing eligibility for [facility] which is required for IHSS. Referral to [facility] EW. Patient states his son is assisting him in obtaining a specialized eye surgery in [place]. Patient can not recall his son's phone number and Patrizia is also unaware of number. SW will attempt a skip trace to locate son Dimas Sadler. Placement upon discharge will be determined by course of care while hospitalized. Patient states he doesn't have a PCP. Code status addressed and patient is requesting full code. Recommend PT eval and treat.
[2019-02-21 16:00] VITALS: BP 128/60
--- NOTE | 2019-02-21 18:51 | Cardiology Report ---
APPROVED REPORT EXAM: Two-dimensional and M-mode echocardiogram with Doppler and color Doppler. INDICATION Left ventricular function M-Mode DIMENSIONS IVSd1.6 (0.7-1.1cm)Left Atrium (MM)3.3 (1.6-4.0cm) LVDd3.3 (3.5-5.6cm)Aortic Root3.6 (2.0-3.7cm) PWd1.7 (0.7-1.1cm)Aortic Cusp Exc.1.8 (1.5-2.0cm) LVDs2.1 (2.5-4.0cm) PWs2.3 cm Normal left ventricular chamber size. There is mid to apical anteroseptal wall hypokinesia, ischemic cardiomyopathy cannot be excluded. Left ventricular ejection fraction is estimated at 45-50%. Mild left ventricular hypertrophy. Anterior Echo-free space, may be due to pericardial fat or effusion. All other cardiac chamber sizes are within normal limits. Focal aortic valve sclerosis with adequate cusp excursion. Thickened mitral valve leaflets with normal excursion. Pulmonic valve not well visualized. Normal tricuspid valve structure. IVC is normal in size with physiological collapse. A color flow and spectral Doppler study was performed and revealed: No aortic insufficiency. Trace mitral regurgitation. Mitral diastolic velocities suggest mild left ventricular diastolic dysfunction (Grade I). Mild tricuspid regurgitation. Tricuspid systolic velocities suggests peak right ventricular systolic pressure of 26 mmHg. Trace pulmonic regurgitation present.
--- NOTE | 2019-02-21 19:21 | NUR ---
HAND-OFF: Report given to GLEN Virk.
--- NOTE | 2019-02-21 19:26 | Cardiology Report ---
APPROVED REPORT EKG Measurement Heart [id number] Ectopic atrial rhythm Left anterior fascicular block T wave abnormality, consider anterior ischemia Abnormal ECG
--- NOTE | 2019-02-21 19:54 | NUR ---
NURSE NOTES: Received report from Tiffani Mccarthy RN. Patient sleeping. On room air, no signs of distress or labored breathing. IVs intact, patent, and saline locked. Bed in lowest position with call light in reach. Will continue with plan of care.
[2019-02-21 20:00] VITALS: BP 124/55
--- NOTE | 2019-02-21 20:21 | Internal Med Progress Note ---
Subjective Date of Service: Feb 21, 2019 Physician Name Xu Guerra Attending Physician Warren Rosenbaum MD Current Medications Medications (Trade) Dose Ordered Sig/Meera Route PRN Reason Start Time Stop Time Status Last Admin Dose Admin Acetaminophen (Tylenol) 650 mg Q4H PRN ORAL fever 02/19/19 17:14 03/21/19 17:13 Al Hydroxide/Mg Hydroxide (Mylanta II) 30 ml Q6H PRN ORAL dyspepsia 02/19/19 17:15 03/21/19 17:14 Atenolol (Tenormin) 25 mg DAILY ORAL 02/20/19 09:00 03/22/19 08:59 02/20/19 08:48 Clonidine HCl (Catapres Tab) 0.1 mg Q4H PRN ORAL For High Blood Pressure > 160 02/19/19 17:15 03/21/19 17:14 02/20/19 14:00 Dextrose (Dextrose 50%) 25 ml Q30M PRN IV Hypoglycemia 02/19/19 17:15 03/21/19 17:14 Dextrose (Dextrose 50%) 50 ml Q30M PRN IV Hypoglycemia 02/19/19 17:15 03/21/19 17:14 Duloxetine HCl (Cymbalta) 30 mg DAILY ORAL 02/20/19 09:00 03/22/19 08:59 02/21/19 08:12 Heparin Sodium (Porcine) (Heparin 5000 units/ml) 5,000 units EVERY 12 HOURS SUBQ 02/19/19 21:00 03/21/19 20:59 02/19/19 21:55 Hydralazine HCl (Apresoline) 25 mg Q8HR ORAL 02/19/19 22:00 03/21/19 21:59 02/21/19 13:01 Insulin Aspart (NovoLOG) BEFORE MEALS AND HS SUBQ 02/19/19 21:00 03/21/19 20:59 02/21/19 17:07 Lorazepam (Ativan 2mg/ml 1ml) 0.5 mg Q4H PRN IV For Anxiety 02/19/19 17:14 02/26/19 17:13 Morphine Sulfate (Morphine Sulfate) 1 mg Q4H PRN IVP For Pain 02/19/19 17:14 02/26/19 17:13 Ondansetron HCl (Zofran) 4 mg Q6H PRN IVP Nausea & Vomiting 02/19/19 17:14 03/21/19 17:13 Polyethylene Glycol (Miralax) 17 gm HSPRN PRN ORAL Constipation 02/19/19 21:00 03/21/19 20:59 Tamsulosin HCl (Flomax) 0.4 mg BEDTIME ORAL 02/19/19 21:00 03/21/19 20:59 02/20/19 21:38 Zolpidem Tartrate (Ambien) 5 mg HSPRN PRN ORAL Insomnia 02/19/19 21:00 02/26/19 20:59 Allergies: Coded Allergies: METFORMIN (Unverified Allergy, Unknown, 02/19/19) ATORVASTATIN CALCIUM (Unverified Adverse Reaction, Unknown, NAUSEA, 02/22/13 ) NAUSEA ROS Limited/Unobtainable: No Constitutional: Reports: no symptoms HEENT: Reports: no symptoms Cardiovascular: Reports: no symptoms Respiratory: Reports: no symptoms Gastrointestinal/Abdominal: Reports: nausea, vomiting Genitourinary: Reports: no symptoms Neurologic/Psychiatric: Reports: no symptoms Subjective 78 YO M admitted with nausea, vomiting and Gen weakness. Cover for Int Med-Dr Rosenbaum Objective Last Vital Signs Date Time Temp Pulse Resp B/P (MAP) Pulse Ox O2 Delivery O2 Flow Rate FiO2 02/21/19 16:00 97.4 56 19 128/60 (82) 99 02/21/19 08:42 Room Air Laboratory Tests Test 02/21/19 05:20 White Blood Count 3.4 K/UL (4.8-10.8) L Red Blood Count 3.32 M/UL (4.70-6.10) L Hemoglobin 10.6 G/DL (14.2-18.0) L Hematocrit 31.1 % (42.0-52.0) L Mean Corpuscular Volume 94 FL (80-99) Mean Corpuscular Hemoglobin 32.0 PG (27.0-31.0) H Mean Corpuscular Hemoglobin Concent 34.1 G/DL (32.0-36.0) Red Cell Distribution Width 12.8 % (11.6-14.8) Platelet Count 106 K/UL (150-450) L Mean Platelet Volume 6.7 FL (6.5-10.1) Neutrophils (%) (Auto) % (45.0-75.0) Lymphocytes (%) (Auto) % (20.0-45.0) Monocytes (%) (Auto) % (1.0-10.0) Eosinophils (%) (Auto) % (0.0-3.0) Basophils (%) (Auto) % (0.0-2.0) Differential Total Cells Counted 100 Neutrophils % (Manual) 60 % (45-75) Lymphocytes % (Manual) 35 % (20-45) Monocytes % (Manual) 4 % (1-10) Eosinophils % (Manual) 1 % (0-3) Basophils % (Manual) 0 % (0-2) Band Neutrophils 0 % (0-8) Platelet Estimate Decreased L Platelet Morphology Normal Red Blood Cell Morphology Normal Erythrocyte Sedimentation Rate 47 MM/HR (0-20) H Sodium Level 140 MMOL/L (136-145) Potassium Level 4.9 MMOL/L (3.5-5.1) Chloride Level 106 MMOL/L (98-107) Carbon Dioxide Level 27 MMOL/L (21-32) Anion Gap 7 mmol/L (5-15) Blood Urea Nitrogen 19 mg/dL (7-18) H Creatinine 1.5 MG/DL (0.55-1.30) H Estimat Glomerular Filtration Rate mL/min (>60) Glucose Level 90 MG/DL (74-106) Calcium Level 8.5 MG/DL (8.5-10.1) Phosphorus Level 3.2 MG/DL (2.5-4.9) Magnesium Level 2.0 MG/DL (1.8-2.4) Total Bilirubin 0.4 MG/DL (0.2-1.0) Aspartate Amino Transf (AST/SGOT) 15 U/L (15-37) Alanine Aminotransferase (ALT/SGPT) 16 U/L (12-78) Alkaline Phosphatase 115 U/L (46-116) C-Reactive Protein, Quantitative 1.7 mg/dL (0.00-0.90) H Total Protein 5.6 G/DL (6.4-8.2) L Albumin 2.7 G/DL (3.4-5.0) L Globulin 2.9 g/dL Albumin/Globulin Ratio 0.9 (1.0-2.7) L Intake and Output 02/20/19 02/21/19 18:59 06:59 Intake Total 600 ml 200 ml Balance 600 ml 200 ml Intake Oral 600 ml 200 ml # Voids 1 # Bowel Movements 1 1 Objective PHYSICAL EXAMINATION: GENERAL: The patient is a well-developed and well-nourished male, in no apparent distress. HEENT: Eyes, pupils equal and responsive to light and accommodation. Extraocular movements are intact. NECK: Supple without lymphadenopathy. CHEST: Lungs are clear to auscultation bilaterally without wheezes or rales. CARDIOVASCULAR: Regular rate. S1 and S2 are normal without murmurs, rubs, or gallops. ABDOMEN: Soft, nontender, and nondistended. Positive bowel sounds. No evidence of hepatosplenomegaly. Currently, no rebound or guarding noted. EXTREMITIES: Negative for clubbing, cyanosis, or edema. RECTAL: Refused. GENITALIA: Refused. NEUROLOGICAL: Cranial nerves II through XII are grossly intact without focal deficits. Motor strength is 5/5 bilaterally intact. Deep tendon reflexes are 2+ plantar. Assessment/Plan Assessment/Plan ASSESSMENT: This is a 78-year-old male with: 1. Nausea and vomiting. 2. Generalized weakness. 3. Hypertension. 4. Diabetes type 2. 5. Cerebrovascular disease. 6. Hypercholesterolemia. 7. Coronary artery disease. 8. Blindness of the left eye. TREATMENT: 1. Nausea with vomiting. A Gastroenterology consultation was obtained with Dr. Carson Segundo. The patient is tolerating a p.o. diet here. We will follow recommendations of Gastroenterology. 2. Generalized weakness. This could be secondary to decreased p.o. intake. 3. Hypertension. Continue atenolol as above. 4. Diabetes type 2. A NovoLog sliding scale has been instituted. 5. Cerebrovascular disease. 6. Hypercholesterolemia. 7. History of coronary artery disease. 8. Blindness of the left eye. The patient is scheduled for surgery at [facility] on March 16. Xu Guerra MD Feb 21, 2019 20:21
[2019-02-21] MEDS: Tamsulosin 0.4mg cap ORAL SCH (21:31)
[2019-02-22] VITALS: BP 135/58
[2019-02-22 04:00] VITALS: BP 134/60
[2019-02-22] MEDS: HydrALAZINE 25mg tab ORAL SCH ×2 (05:53→13:03)
[2019-02-22] MEDS: NovoLOG Insulin Flexpen SUBQ SCH ×3 (05:55→17:57)
[2019-02-22 07:34] LABS: BASOPHILS % (AUTO) 0.8 % (0.0-2.0); LYMPHOCYTES % (AUTO) 26.2 % (20.0-45.0); MEAN CORPUSCULAR VOLUME 95 FL (80-99); MONOCYTES % (AUTO) 7.8 % (1.0-10.0); NEUTROPHILS % (AUTO) 64.2 % (45.0-75.0); PLATELET COUNT 112 K/UL (150-450); RED BLOOD COUNT 3.48 M/UL (4.70-6.10); RED CELL DISTRIBUTION WIDTH 12.8 % (11.6-14.8); WHITE BLOOD COUNT 3.6 K/UL (4.8-10.8)
--- NOTE | 2019-02-22 07:38 | NUR ---
NURSE NOTES: Patient alert x 2, on room air, no sing of distress and shortness of breath; no chest pain; IV Right AC and Left For-arm flushes well; bed alarm on, side rails up x2, breaks engaged; call light within reach; will keep monitoring blood sugar.
[2019-02-22 07:48] LABS: ANION GAP 7 mmol/L (5-15); BLOOD UREA NITROGEN 30 mg/dL (7-18); CALCIUM 8.6 MG/DL (8.5-10.1); CARBON DIOXIDE 27 MMOL/L (21-32); CHLORIDE 106 MMOL/L (98-107); CREATININE 1.5 MG/DL (0.55-1.30); POTASSIUM 4.6 MMOL/L (3.5-5.1); SODIUM 140 MMOL/L (136-145)
[2019-02-22 08:00] VITALS: BP 126/59
--- NOTE | 2019-02-22 08:02 | NUR ---
HAND-OFF: Report given to GLEN Krishnamurthy.
[2019-02-22] MEDS: Atenolol 25mg tab ORAL SCH (08:39)
[2019-02-22] MEDS: DULoxetine 30mg cap ORAL SCH (08:40)
[2019-02-22] MEDS: Heparin 5000 units/ml inj SUBQ SCH ×2 (08:40→08:43)
--- NOTE | 2019-02-22 11:02 | Diagnostic Imaging Report ---
APPROVED REPORT CPT Code: 32453 Vascular Symptoms CVA/TIA: Doppler Spectral Velocity Analysis RightLeft RIGHT SIDE: CCA - The Doppler spectral flow analysis is abnormal (resistive) in the reveals irregular plaque in the internal and the external carotid arteries. The Doppler signal indicates the degree of stenosis is modetate (50%) in the right internal and external carotid arteries. arteries. The Doppler spectral flow analysis indicates the degree of stenosis is minimal (10%) in the common carotid artery, moderate (40-50%) in the internal carotid artery, and minimal (20%) in the external carotid artery. VERTEBRAL/SUBCLAVIAN- The vertebral and subclavian arteries are within normal limits, bilaterally.
--- NOTE | 2019-02-22 11:18 | NUR ---
NURSE NOTES: Patient is saying he lost his cell-phone; I checked on the belonging lis and it is not indicated that patient had a cell-phone during admission. I went with the belonging list to patient's room and showed patient the belonging list paper. When I ask patient what year are we, patient said 1999, current president, Mushtaq. Patient is confused.
[2019-02-22 12:00] VITALS: BP 116/50
[2019-02-22] MEDS ORDERED: CYMBALTA30 MG ORAL (12:36)
[2019-02-22] MEDS ORDERED: NOVOLOG100 UNITS1 SUBQ (12:36)
[2019-02-22] MEDS ORDERED: HYDRALAZINE HCL25 M1 ORAL (12:36)
[2019-02-22] MEDS ORDERED: FLOMAX0.4 MG ORAL (12:36)
[2019-02-22] MEDS ORDERED: ATENOLOL25 MG ORAL (12:36)
--- NOTE | 2019-02-22 15:42 | NUR ---
P.T Note: P.T evaluation completed and treatment initiated. Please refer to P.T evaluation for current functional status. Pt is limited mostly by generalized weakness and visual impairment. Pt currently require MOD A for bed mobilities, transfers and gait/ambulation activities using the FWW. Skilled P.T service is warranted to improve functional mobility independence and safety during stay. Recommend SNF for short further rehab at [facility]. Thank you for this referral. Addendum: 02/22/19 at 1544 by HAYLEY RAMIREZ PT Amended: Links added.
--- NOTE | 2019-02-22 15:48 | NUR ---
DISCHARGE PLANNING FAXED REFERRAL TO [facility]- FAX- WILL FOLLOW UP
[2019-02-22 16:00] VITALS: BP 139/54
--- NOTE | 2019-02-22 16:36 | NUR ---
DISCHARGE PLANNED PT WILL DC TO [facility] ROOM [address] SK[facility]ED TEL- FOR NURSE TO NURSE REPORT [facility] WILL [facility] ORDER SELECTOR AT 1800
--- NOTE | 2019-02-22 17:44 | Internal Med Progress Note ---
Subjective Date of Service: Feb 22, 2019 Physician Name Xu Guerra Attending Physician Warren Rosenbaum MD Current Medications Medications (Trade) Dose Ordered Sig/Meera Route PRN Reason Start Time Stop Time Status Last Admin Dose Admin Acetaminophen (Tylenol) 650 mg Q4H PRN ORAL fever 02/19/19 17:14 03/21/19 17:13 Al Hydroxide/Mg Hydroxide (Mylanta II) 30 ml Q6H PRN ORAL dyspepsia 02/19/19 17:15 03/21/19 17:14 Atenolol (Tenormin) 25 mg DAILY ORAL 02/20/19 09:00 03/22/19 08:59 02/22/19 08:39 Clonidine HCl (Catapres Tab) 0.1 mg Q4H PRN ORAL For High Blood Pressure > 160 02/19/19 17:15 03/21/19 17:14 02/20/19 14:00 Dextrose (Dextrose 50%) 25 ml Q30M PRN IV Hypoglycemia 02/19/19 17:15 03/21/19 17:14 Dextrose (Dextrose 50%) 50 ml Q30M PRN IV Hypoglycemia 02/19/19 17:15 03/21/19 17:14 Duloxetine HCl (Cymbalta) 30 mg DAILY ORAL 02/20/19 09:00 03/22/19 08:59 02/22/19 08:40 Heparin Sodium (Porcine) (Heparin 5000 units/ml) 5,000 units EVERY 12 HOURS SUBQ 02/19/19 21:00 03/21/19 20:59 02/19/19 21:55 Hydralazine HCl (Apresoline) 25 mg Q8HR ORAL 02/19/19 22:00 03/21/19 21:59 02/22/19 13:03 Insulin Aspart (NovoLOG) BEFORE MEALS AND HS SUBQ 02/19/19 21:00 03/21/19 20:59 02/22/19 11:43 Tamsulosin HCl (Flomax) 0.4 mg BEDTIME ORAL 02/19/19 21:00 03/21/19 20:59 02/21/19 21:31 Zolpidem Tartrate (Ambien) 5 mg HSPRN PRN ORAL Insomnia 02/19/19 21:00 02/26/19 20:59 Allergies: Coded Allergies: METFORMIN (Unverified Allergy, Unknown, 02/19/19) ATORVASTATIN CALCIUM (Unverified Adverse Reaction, Unknown, NAUSEA, 02/22/13 ) NAUSEA ROS Limited/Unobtainable: No Constitutional: Reports: no symptoms HEENT: Reports: no symptoms Cardiovascular: Reports: no symptoms Respiratory: Reports: no symptoms Gastrointestinal/Abdominal: Reports: no symptoms Genitourinary: Reports: no symptoms Neurologic/Psychiatric: Reports: no symptoms Subjective 78 YO M admitted with nausea, vomiting and Gen weakness. Cover for Int Jean Pierre-Dr Rosenbaum Objective Last Vital Signs Date Time Temp Pulse Resp B/P (MAP) Pulse Ox O2 Delivery O2 Flow Rate FiO2 02/22/19 16:00 98.2 55 18 139/54 (82) 100 02/22/19 09:00 Room Air Laboratory Tests Test 02/22/19 05:25 White Blood Count 3.6 K/UL (4.8-10.8) L Red Blood Count 3.48 M/UL (4.70-6.10) L Hemoglobin 11.0 G/DL (14.2-18.0) L Hematocrit 33.0 % (42.0-52.0) L Mean Corpuscular Volume 95 FL (80-99) Mean Corpuscular Hemoglobin 31.6 PG (27.0-31.0) H Mean Corpuscular Hemoglobin Concent 33.4 G/DL (32.0-36.0) Red Cell Distribution Width 12.8 % (11.6-14.8) Platelet Count 112 K/UL (150-450) L Mean Platelet Volume 7.2 FL (6.5-10.1) Neutrophils (%) (Auto) 64.2 % (45.0-75.0) Lymphocytes (%) (Auto) 26.2 % (20.0-45.0) Monocytes (%) (Auto) 7.8 % (1.0-10.0) Eosinophils (%) (Auto) 1.0 % (0.0-3.0) Basophils (%) (Auto) 0.8 % (0.0-2.0) Sodium Level 140 MMOL/L (136-145) Potassium Level 4.6 MMOL/L (3.5-5.1) Chloride Level 106 MMOL/L (98-107) Carbon Dioxide Level 27 MMOL/L (21-32) Anion Gap 7 mmol/L (5-15) Blood Urea Nitrogen 30 mg/dL (7-18) H Creatinine 1.5 MG/DL (0.55-1.30) H Estimat Glomerular Filtration Rate mL/min (>60) Glucose Level 123 MG/DL (74-106) H Calcium Level 8.6 MG/DL (8.5-10.1) Intake and Output 02/21/19 02/22/19 19:00 07:00 Intake Total 860 ml Balance 860 ml Intake Oral 860 ml # Voids 8 2 # Bowel Movements 1 Objective PHYSICAL EXAMINATION: GENERAL: The patient is a well-developed and well-nourished male, in no apparent distress. HEENT: Eyes, pupils equal and responsive to light and accommodation. Extraocular movements are intact. NECK: Supple without lymphadenopathy. CHEST: Lungs are clear to auscultation bilaterally without wheezes or rales. CARDIOVASCULAR: Regular rate. S1 and S2 are normal without murmurs, rubs, or gallops. ABDOMEN: Soft, nontender, and nondistended. Positive bowel sounds. No evidence of hepatosplenomegaly. Currently, no rebound or guarding noted. EXTREMITIES: Negative for clubbing, cyanosis, or edema. RECTAL: Refused. GENITALIA: Refused. NEUROLOGICAL: Cranial nerves II through XII are grossly intact without focal deficits. Motor strength is 5/5 bilaterally intact. Deep tendon reflexes are 2+ plantar. Assessment/Plan Assessment/Plan ASSESSMENT: This is a 78-year-old male with: 1. Nausea and vomiting. 2. Generalized weakness. 3. Hypertension. 4. Diabetes type 2. 5. Cerebrovascular disease. 6. Hypercholesterolemia. 7. Coronary artery disease. 8. Blindness of the left eye. TREATMENT: 1. Nausea with vomiting. A Gastroenterology consultation was obtained with Dr. Carson Segundo. The patient is tolerating a p.o. diet here. We will follow recommendations of Gastroenterology. 2. Generalized weakness. This could be secondary to decreased p.o. intake. 3. Hypertension. Continue atenolol as above. 4. Diabetes type 2. A NovoLog sliding scale has been instituted. 5. Cerebrovascular disease. 6. Hypercholesterolemia. 7. History of coronary artery disease. 8. Blindness of the left eye. The patient is scheduled for surgery at [facility] on March 16. Discharge home today Guerra,Xu MD Feb 22, 2019 17:44
--- NOTE | 2019-02-22 19:37 | NUR ---
NURSE NOTES: Patient discharged to [facility], left the floor accompanied by two ambulance personnel. IV access, name tag removed upon discharge. Wound care provided and pictures taken. Report give to Mercedes. Patient was stable upon discharge. Belonging list sign by discharging nurse and patient. patient was stable upon discharge.
--- NOTE | 2019-02-24 12:12 | Discharge Summary ---
Discharge Summary Discharge Summary _ DATE OF ADMISSION: 02/19/2019 DATE OF DISCHARGE: 02/22/2019 DISCHARGED BY: Dr. Rosenbaum REASON FOR ADMISSION: 78 years old male with past medical history of hypertension, diabetes mellitus, glaucoma, partially blind in the left eye, status post cataract right eye was brought in due to generalized weakness patient reported that he was too weak to walk patient reported episode of vomiting. Patient blind and unable to see the color of vomitus. He reported weakness in bilateral legs. Patient denies chest pain abdominal pain change in bowel patient denies dysuria. Upon evaluation vital signs reveal elevated blood pressure 187/76 otherwise no fever pulse oximetry stable on room air. Laboratory workup revealed stable the WBC stable hemoglobin hematocrit. Urinalysis revealed no evidence of UTI. Potassium 5.9 BUN 13 creatinine 1.5 lactic acid 3.6 stable LFT troponin negative proBNP 2652 albumin 3.3 lipase 74 EKG revealed normal sinus rhythm no acute ischemic changes chest x-ray demonstrated no evidence of acute cardiopulmonary disease. Hyperkalemia was treated with Kayexalate and calcium antibiotics were hold since no evidence of infection. Patient received IV fluids and lactic acid improved but still elevated with hydration patient admitted for further management CONSULTANTS: pulmonary Dr. Arce [facility] COURSE: Patient admitted and started on IV fluids. Renal parameters and electrolytes were closely monitored. Electrolytes corrected as needed, and nephrotoxins were avoided. Creatinine remained unchanged, possibly chronic kidney disease. Hemoglobin and hematocrit were closely monitored with goal to keep hemoglobin above 7. Prior to discharge hemoglobin 11, hematocrit 33. Thrombocytopenia noted with second platelet count 118. Upon discharge platelet count was 112. Fall precaution maintained. Patient was working with physical therapist. Blood pressure was managed with beta-cara and hydralazine. Initially elevated blood pressure stabilized. Echocardiogram revealed reduced ejection fraction 45-50% with mild apical anteroseptal wall hypokinesia, mild left ventricular hypertrophy. Right ventricular systolic pressure of 26. Carotid duplex revealed moderate degree of stenosis 50% in the right internal and external carotid artery, moderate 40-50% of stenosis in the internal carotid artery and minimal 20% in the external carotid artery on the left. Lipid panel was stable. DVT prophylaxis provided. Blood sugar was managed with sliding scale of insulin. Flomax was continued. No difficulty with voiding. PSA within normal limits. CEA with mild elevation 5.1. Recommended outpatient colonoscopy. Pain management addressed as needed. Bowel regimen instituted. Supportive care provided. Antiemetic provided as needed. Patient was able to tolerate his diet. Placement was arranged to care home facility for continuation of care. Patient will need to follow-up as outpatient with cardiology for initiation of guideline recommended medical therapy for congestive heart failure and further management. At this time patient appeared to be compensated, no evidence of congestive heart failure exacerbation. Patient subsequently was discharged to [facility] for further management. FINAL DIAGNOSES: Acute encephalopathy Intractable nausea and vomiting-resolved Acute tubular necrosis, probably chronic kidney disease Hypertension with initial hypertensive urgency Cardiomyopathy ( EF 45%). 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 DISCHARGE INSTRUCTIONS: Patient was discharged to the care home facility. Follow up with medical doctor at the facility. I have been assigned to dictate discharge summary for this account. I was not involved in the patient's management. Ebonie Moore NP Feb 24, 2019 12:12
--- NOTE | 2019-03-25 09:17 | Physician Query ---
--------- THIS DOCUMENT IS A PERMANENT PART OF THE MEDICAL RECORD --------- Dear Dr. Rosenbaum Date: 03/25/19 Licensed Physical Therapy Assistant/CDS Name: CastilloJuan MkimberlymontezSOLOMON Exercise your independent professional judgment when responding to query. Question asked do not imply a particular answer is desired/expected. Clinical Documentation States: Generalized weakness patient reported that he was too weak to walk patient reported episode of vomiting. Patient received IV fluids and lactic acid improved but still elevated with hydration patient admitted for further management HOSPITAL COURSE: Patient admitted and started on IV fluids. Renal parameters and electrolytes were closely monitored. Electrolytes corrected as needed, and nephrotoxins were avoided. Creatinine remained unchanged, possibly chronic kidney disease. Hemoglobin and hematocrit were closely monitored with goal to keep hemoglobin above 7. Prior to discharge hemoglobin 11, hematocrit 33. Thrombocytopenia noted with second platelet count 118. Upon discharge platelet count was 112. Problems: (1) Acute encephalopathy (2) Intractable nausea and vomiting (3) ATN (acute tubular necrosis) (4) HTN (hypertension) (5) Anemia (6) s/p multiple lacunar strokes, old (7) Diabetes mellitus, type II Clinical Findings Show:EMERGENCY ROOM-EKG without injury. CXR no infiltrates. Labs with normal WBC, renal failure, high potassium. Elevated lactic acid. Elevated lactate. No source of infection. Elevated K treated with calcium and rectal Kayexelate. Holding antibiotics. Clinically improved. Normal WBC. Lactic acid improved with hydration. Still elevated. Please indicate the nature of the ' acute encephalopathy' below: [] Metabolic Encephalopathy [] Toxic Encephalopathy [] Toxic - Metabolic Encephalopathy [] Progressive Encephalopathy [] Encephalopathy, Other [] Other: [] Not Applicable Condition Present on Admission: [] Yes [] No []Clinically Undeterminable JIMENA ROSENBAUM M.D. DATE & TIME [facility]
--- NOTE | 2019-03-25 09:37 | Physician Query ---
--------- THIS DOCUMENT IS A PERMANENT PART OF THE MEDICAL RECORD --------- PLEASE COMPLETE DOCUMENT BEFORE SIGNING Dear Dr. Rosenbaum Date: 03/25/2019 Process Safety Engineering Technologist/CDS Name: Jeremias, SOLOMON Exercise your independent professional judgment when responding to the query. Questions asked do not imply a particular answer is desired or expected. We greatly appreciate your clarification on this issue. ER Course -Patient presents with weakness and vomiting Treatment with IV hydration, Zofran, Pepcid. Not surgical abdomen, imaging not indicated at this time. EKG without injury. CXR no infiltrates. Labs with normal WBC, renal failure, high potassium. Elevated lactic acid. Elevated lactate. No source of infection. Elevated K treated with calcium and rectal Kayexelate. Holding antibiotics. Clinically improved. Normal WBC. Lactic acid improved with hydration. Still elevated. CHIEF COMPLAINT: The patient is a 78-year-old male, who presents with chief complaint of nausea and vomiting. HISTORY OF PRESENT ILLNESS: The patient himself states he did not want to come to the hospital. The patient states he was told to come in to the hospital by his roommates. The patient states he began to experience nausea and vomiting three days ago. The patient was also generally weak. 02/20/19 - per Consult by Dr. Arce: He was found to be dehydrated and in renal failure with hyperglycemia. CLINICAL FINDINGS SHOW: 02/19/19 LABORATORY STUDIES: WBC 6.6, hemoglobin 13.3, hematocrit 39.7, and platelets 195,000. Sodium 142, potassium 5.3, chloride 110, CO2 28, BUN 15, creatinine 1.5, and glucose 110. Please respond to the following question: WHAT WAS THE UNDERLYING CAUSE OF THE WEAKNESS, NAUSEA AND VOMITING THAT PROMPTED ADMISSION? PHYSICIAN RESPONSE: JIMENA ROSENBAUM M.D. DATE & TIME [facility]
== END 2019-02-22 18:27 | DRG 683 ==
LOC: EDBD 12:35 → EMR 13:40 → EDBEDREQ 18:16 → 4E 18:22
DX: N17.0 Acute kidney failure with tubular necrosis (principal); G93.40 Encephalopathy, unspecified; E46 Unspecified protein-calorie malnutrition; I42.9 Cardiomyopathy, unspecified; R11.2 Nausea with vomiting, unspecified; E87.5 Hyperkalemia; E86.0 Dehydration; E78.00 Pure hypercholesterolemia, unspecified; I25.10 Atherosclerotic heart disease of native coronary artery without angina pectoris; H54.62 Unqualified visual loss, left eye, normal vision right eye; H40.9 Unspecified glaucoma; D69.6 Thrombocytopenia, unspecified; E11.65 Type 2 diabetes mellitus with hyperglycemia; I12.9 Hypertensive chronic kidney disease with stage 1 through stage 4 chronic kidney disease, or unspecified chronic kidney disease; E11.22 Type 2 diabetes mellitus with diabetic chronic kidney disease; N18.9 Chronic kidney disease, unspecified; I16.0 Hypertensive urgency; Z86.73 Personal history of transient ischemic attack (TIA), and cerebral infarction without residual deficits; R53.1 Weakness; Z79.84 Long term (current) use of oral hypoglycemic drugs; E11.42 Type 2 diabetes mellitus with diabetic polyneuropathy; Z88.8 Allergy status to other drugs, medicaments and biological substances; I65.23 Occlusion and stenosis of bilateral carotid arteries; D64.9 Anemia, unspecified
CPT/HCPCS: 36415; 71045; 80048; 80053; 80061; 81001; 81003; 82043; 82378; 82550; 82553; 82570; 82607; 82746; 82962; 83540; 83550; 83605; 83615; 83690; 83735; 83880; 84100; 84133; 84153; 84154; 84300; 84484; 84550; 85007; 85025; 85044; 85060; 85610; 85651; 85730; 86140; 89050; 93005; 93306; 93880; 96361; 96374; 96375; 99285; J1815; J2405